=== PATIENT | male | born 1980 | race Caucasian/White ===

== ENCOUNTER → 2016-09-21 | Outpatient (CLI) | payer OTHER ==
[~2016-09-21] MED LIST: AMLO-114 PO; ATOR-54 PO; ATRINS INH; BUPR1SUB23 SL; CITA40TA12 PO; DOCU100C PO; FLV1 PO; GABA-113 PO; GLIP-197 PO; HYDR25TA4 PO; INSDGIPEN SC; LSN40 PO; METF1000 PO; POLY335019 PO; POTTAB2 PO; PRLSR20 PO; Piperacill/Tazobac Consult; RANI300T2 PO; SUCR1TAB29 PO; TRAZ50TA35 PO; Vancomycin Consult Active; XPNINS1255 INH; [UNRECOGNIZED DRUG - CODE] SQ
== END | disposition home or self-care (01) ==
LOC: C.LAB 01:02
DX: Z02.83 Encounter for blood-alcohol and blood-drug test (principal)

== ENCOUNTER 2017-02-03 02:28 | Inpatient (IN) | payer OTHER ==
[~2017-02-03] VITALS: Ht 177.8 cm; Wt 79.7 kg
[2017-02-03] VITALS (33 sets, daily range): BP systolic 45–152; BP diastolic 39–131; PULSE 110–148; TEMP 36.9–38.9; O2SAT 82–100; Ht 177.8 cm; Wt 79.7 kg
[~2017-02-03 02:28] MED LIST changes: -ATRINS INH; -DOCU100C PO; -POLY335019 PO; -Piperacill/Tazobac Consult; -Vancomycin Consult Active; -XPNINS1255 INH; -[UNRECOGNIZED DRUG - CODE] SQ
[2017-02-03] MEDS ORDERED: SODIUM CHLORIDE 0.9% 1000ML 1,000 ML IV STA (02:39)
[2017-02-03] MEDS ORDERED: VANCOMYCIN 1GM/270ML NSS ONE (02:57)
[2017-02-03] MEDS ORDERED: PIPERACILLIN/TAZOBACTAM 4.5 GM/100ML D5W ONE (02:57)
[2017-02-03] MEDS ORDERED: PIPERACILLIN/TAZOBACTAM 4.5 GM/100ML D5W IV STA (02:58)
[2017-02-03] MEDS ORDERED: VANCOMYCIN INJ 1,000 MG in SODIUM CHLORIDE 0.9% 250ML 250 ML IV STA (02:58)
[2017-02-03 03:12] LABS: INR 1.3 (0.9-1.1); PROTHROMBIN TIME (PATIENT) 14.6 SECONDS (9.0-12.0)
[2017-02-03 04:00] LABS: POTASSIUM 3.9 mmol/L (3.5-5.1)
[2017-02-03 04:04] LABS: HEMATOCRIT 40.8 % (42-52); MEAN CELL VOLUME 98.8 fL (80-100); MEAN CORPUSCULAR HEMOGLOBIN 34.6 pg (25-34); MEAN PLATELET VOLUME 12.8 fL (7.4-10.4); PLATELET COUNT 32 K/uL (130-400); RED BLOOD COUNT 4.13 M/uL (4.7-6.1); WHITE BLOOD COUNT 0.57 K/uL (4.8-10.8)
[2017-02-03] MEDS ORDERED: LEVAQUIN 750MG / 150ML D5W IV STA (04:04)
[2017-02-03 04:07] LABS: COMPLETE YES; IG% 1.8 %; LARGE PLATELETS 3+; LYMPH % 54.4 %; LYMPH ABS # 0.31 K/uL (1.2-3.4); NEUT % 36.8 %; PLT ESTIMATE DECREASED; VACUOLIZATION 2+
[2017-02-03 04:09] LABS: CREATININE 3.7 mg/dl (0.60-1.40)
[2017-02-03 04:10] LABS: BUN/CREATININE RATIO 7.8 (10-20); CALCIUM 6.7 mg/dl (8.5-10.1)
[2017-02-03 04:26] LABS: BETA-HYDROXYBUTYRATE 3.65 mg/dL (0.2-2.81)
[2017-02-03 04:49] LABS: VEN BLD GAS O2 SATURATION 69.8 %; VEN BLOOD GAS BASE EXCESS -7.2 mEq/L; VENOUS BLOOD GAS PCO2 31 mmHg (38.0-50.0); VENOUS BLOOD GAS PO2 39 mmHg
[2017-02-03] MEDS ORDERED: NOREPINEPHRINE BIT INJ 8 MG in DEXTROSE 5% 500ML 500 ML IV STA (04:55)
--- NOTE | 2017-02-03 05:02 | EMERGENCY ROOM VISIT NOTE ---
History Report prepared by Shellyibla: Giovani Strange Under the Supervision of: Dr. Rajendra Babcock D.O. First contact with patient: 02:38 Chief Complaint: ABDOMINAL PAIN Stated Complaint: ABDOMINAL PAIN Nursing Triage Summary: patient presents via EMS with c/o increased adominal pain all over and n/v. patient has hx of pancreatitis , " liver disease", diabetes. patients BSG was 486 prehospital . patient took insulin last night before bed. History of Present Illness The patient is a 36 year old male who presents to the Emergency Room with complaints of persistent abdominal pain beginning five days ago. He was found to be febrile, hypotensive and tachycardic upon arrival. He has a history of pancreatitis and states that his current symptoms feel like his pancreatitis. The patient has a history of liver problems, and diabetes. He states that he was drinking alcohol earlier this week. He also complains of vomiting today, and a productive cough beginning a few days ago. The patient denies any diarrhea , or bloody vomit Source of History: patient Onset: Five days ago Position: abdomen Timing: other (persistent) Associated Symptoms: + fevers, + cough, + vomiting, No diarrhea Review of Systems See HPI for pertinent positives and negatives. A total of ten systems were reviewed and were otherwise negative. Past Medical & Surgical Medical Problems: (1) Alcoholic hepatitis (2) Anxiety disorder (3) Chronic alcoholic pancreatitis (4) Depression (5) Depressive disorder (6) DM type 2 (diabetes mellitus, type 2) (7) History of alcohol abuse (8) History of Clostridium difficile (9) Hyperlipidemia (10) Hypertension (11) Pancreatitis (12) Tobacco abuse (13) Wernicke encephalopathy Surgical Problems: (1) H/O wisdom tooth extraction (2) S/P vasectomy Family History Cancer Diabetes mellitus Heart disease Hypertension Lung disease Social History Smoking Status: Current Some Day Smoker Alcohol Use: heavy Drug Use: none Marital Status: single Housing Status: lives with family Occupation Status: employed Current/Historical Medications Scheduled Amlodipine (Norvasc), 10 MG PO QAM Atorvastatin (Lipitor), 20 MG PO QAM Buprenorphine Hcl-Naloxone Hcl (Suboxone 8-2 Mg), 2-2.5 TAB SL DAILY Citalopram Hydrobromide (Celexa), 40 MG PO QAM Gabapentin (Neurontin), 300 MG PO TID Glipizide (Glipizide Er), 1 TAB PO QAM Hydrochlorothiazide (Hctz), 25 MG PO QAM Insulin Glargine (Lantus Solostar), 10-32 UNITS SC DAILY Lisinopril (Lisinopril), 40 MG PO QAM Metformin Hcl (Glucophage), 1 TAB PO BID Omeprazole (Prilosec), 40 MG PO QAM Pot Phosphate Monobasic W/ Sod (Phospha 250 Neutral), 1 TAB PO QID Ranitidine Hcl (Zantac), 300 MG PO HS Sucralfate (Carafate), 1 GM PO QID Scheduled PRN Trazodone Hcl (Trazodone), 50 MG PO HS PRN for PRN Allergies Coded Allergies: Iodinated Diagnostic Agents (Verified Allergy, Unknown, UNKNOWN, 02/03/17) NO KNOWN DRUG ALLERGIES (Unverified Allergy, Unknown, NONE, 01/14/17) Physical Exam Vital Signs Date Time Temp Pulse Resp B/P (MAP) Pulse Ox O2 Delivery O2 Flow Rate FiO2 02/03/17 05:35 134 22 88/49 93 Nasal Cannula 2.0 02/03/17 04:52 128 22 76/36 92 Nasal Cannula 2.0 02/03/17 04:00 37.4 02/03/17 03:47 130 22 80/44 97 Room Air 02/03/17 02:55 127 24 65/40 100 Room Air 02/03/17 02:45 99 Room Air 02/03/17 02:40 137 02/03/17 02:31 39.2 141 22 82/57 100 Room Air Physical Exam GENERAL: Awake, cachectic-appearing. Jaundiced. HENT: Normocephalic, atraumatic. Oropharynx unremarkable. EYES: Normal conjunctiva. Sclera non-icteric. NECK: Supple. No nuchal rigidity. FROM. No JVD. RESPIRATORY: Clear to auscultation. CARDIAC: Tachycardic rate, normal rhythm. Extremities warm and well perfused. Pulses equal. ABDOMEN: Soft, non-distended. No tenderness to palpation. No rebound or guarding. No masses. RECTAL: Deferred. MUSCULOSKELETAL: Chest examination reveals no tenderness. The back is symmetrical on inspection without obvious abnormality. There is no CVA tenderness to palpation. No joint edema. LOWER EXTREMITIES: Calves are equal size bilaterally and non-tender. No edema. No discoloration. NEURO: Normal sensorium. No sensory or motor deficits noted. SKIN: No rash. Jaundiced. Medical Decision & Procedures ER Provider Diagnostic Interpretation: One View Chest X-ray interpreted by me: slight increased markings in the left lower lobe. Normal mediastinum. CT results per statrad and my review. CT ABDOMEN & PELVIS: Compared to 05/16/16. The left lower lobe is almost completely consolidated suggesting pneumonia. Hepatic stenosis. Mild left renal atrophy. No obstruction. Normal appendix. No bowel obstruction. Small fatty inguinal hernias. Laboratory Results 02/03/17 02:45 Red Blood Count 4.13, Mean Corpuscular Volume 98.8, Mean Corpuscular Hemoglobin 34.6, Mean Corpuscular Hemoglobin Concent 35.0, Mean Platelet Volume 12.8, Neutrophils (%) (Auto) 36.8, Lymphocytes (%) (Auto) 54.4, Monocytes (%) (Auto) 7.0, Eosinophils (%) (Auto) 0.0, Basophils (%) (Auto) 0.0, Neutrophils # (Auto) 0.21, Lymphocytes # (Auto) 0.31, Monocytes # (Auto) 0.04, Eosinophils # (Auto) 0.00, Basophils # (Auto) 0.00 02/03/17 02:45 Test 02/03/17 02:45 02/03/17 02:52 02/03/17 03:04 02/03/17 04:28 White Blood Count 0.57 K/uL (4.8-10.8) Red Blood Count 4.13 M/uL (4.7-6.1) Hemoglobin 14.3 g/dL (14.0-18.0) Hematocrit 40.8 % (42-52) Mean Corpuscular Volume 98.8 fL (80-100) Mean Corpuscular Hemoglobin 34.6 pg (25-34) Mean Corpuscular Hemoglobin Concent 35.0 g/dl (32-36) Platelet Count 32 K/uL (130-400) Mean Platelet Volume 12.8 fL (7.4-10.4) Neutrophils (%) (Auto) 36.8 % Lymphocytes (%) (Auto) 54.4 % Monocytes (%) (Auto) 7.0 % Eosinophils (%) (Auto) 0.0 % Basophils (%) (Auto) 0.0 % Neutrophils # (Auto) 0.21 K/uL (1.4-6.5) Lymphocytes # (Auto) 0.31 K/uL (1.2-3.4) Monocytes # (Auto) 0.04 K/uL (0.11-0.59) Eosinophils # (Auto) 0.00 K/uL (0-0.5) Basophils # (Auto) 0.00 K/uL (0-0.2) RDW Standard Deviation 43.0 fL (36.4-46.3) RDW Coefficient of Variation 11.9 % (11.5-14.5) Immature Granulocyte % (Auto) 1.8 % Immature Granulocyte # (Auto) 0.01 K/uL (0.00-0.02) Toxic Vacuolation 2+ Platelet Estimate DECREASED Large Platelets 3+ Pappenheimer Bodies 1+ Prothrombin Time 14.6 SECONDS (9.0-12.0) Prothromb Time International Ratio 1.3 (0.9-1.1) Anion Gap 19.0 mmol/L (3-11) Est Creatinine Clear Calc Drug Dose 28.2 ml/min Estimated GFR () 22.8 Estimated GFR (Non- 19.7 BUN/Creatinine Ratio 7.8 (10-20) Calcium Level 6.7 mg/dl (8.5-10.1) Total Bilirubin 6.9 mg/dl (0.2-1) Direct Bilirubin 5.4 mg/dl (0-0.2) Aspartate Amino Transf (AST/SGOT) 220 U/L (15-37) Alanine Aminotransferase (ALT/SGPT) 126 U/L (12-78) Alkaline Phosphatase 82 U/L (45-117) Total Protein 5.6 gm/dl (6.4-8.2) Albumin 2.2 gm/dl (3.4-5.0) Lipase 24 U/L (73-393) Beta-Hydroxybutyric Acid 3.65 mg/dL (0.2-2.81) Bedside Lactic Acid Venous 8.96 mmol/L (0.90-1.70) Ethyl Alcohol mg/dL < 3.0 mg/dl (0-3) Venous Blood pH 7.36 (7.36-7.41) Venous Blood Partial Pressure CO2 31 mmHg (38.0-50.0) Venous Blood Partial Pressure O2 39 mmHg Venous Blood HCO3 17 mmol/L Venous Blood Oxygen Saturation 69.8 % Venous Blood Base Excess -7.2 mEq/L Ammonia 18.0 umol/L (11-32) Test 02/03/17 05:17 02/03/17 05:30 Bedside Glucose 300 mg/dl (70-99) Urine Color DK YELLOW Urine Appearance CLOUDY (CLEAR) Urine pH 5.0 (4.5-7.5) Urine Specific Butterfield 1.027 (1.000-1.030) Urine Protein 1+ (NEG) Urine Glucose (UA) NEG (NEG) Urine Ketones TRACE (NEG) Urine Occult Blood TRACE (NEG) Urine Nitrite POS (NEG) Urine Bilirubin 1+ (NEG) Urine Urobilinogen NEG (NEG) Urine Leukocyte Esterase NEG (NEG) Urine Osmolality 310 mOms/kg (500-800) Laboratory results reviewed by me Medications Administered Medications (Trade) Dose Ordered Sig/Elidia Route Start Time Stop Time Status Last Admin Dose Admin Sodium Chloride 1,000 ml @ 999 mls/hr Q1H1M STAT IV 02/03/17 02:39 02/03/17 03:39 PA 02/03/17 02:52 999 MLS/HR Piperacillin Sod/ Tazobactam Sod (Zosyn Iv) 4.5 gm NOW STAT IV 02/03/17 02:58 02/03/17 02:59 DC 02/03/17 03:14 4.5 GM Vancomycin HCl 1000 mg/Sodium Chloride 270 ml @ 125 mls/hr NOW STAT IV 02/03/17 02:58 02/03/17 05:07 DC 02/03/17 02:58 125 MLS/HR Levofloxacin (Levaquin / D5W) 750 mg NOW STAT IV 02/03/17 04:04 02/03/17 04:06 DC 02/03/17 04:46 750 MG Norepinephrine Bitartrate 8 mg/ Dextrose 508 ml @ 0 mls/hr Q0M STAT IV 02/03/17 04:55 02/03/17 04:56 DC 02/03/17 05:16 30 MLS/HR Procedure Femoral Central Venous Catheter Indication: sepsis, hypotension Catheter Type: triple lumen Location: right groin, femoral vein Verbal consent was obtained after the risks and benefits were explained, including but not limited to intra-abdominal injury, vessel injury, bleeding, scarring, infection, pain, and bone/joint/nerve damage. At this time, the risks of the procedure are less than the risks of NOT performing the procedure. A time out was taken and the correct patient and site identified. The patient was placed in the supine position and the skin was prepped in the standard fashion with chlorhexidine and full sterile drapes applied. The proper landmarks were identified, anesthetized with 1% lidocaine without epinephrine, and the needle was inserted through the skin in the standard fashion. The needle was carefully advanced into blood vessel lumen with ultrasound guidance. The guidewire was placed uneventfully. The vessel is dilated and the catheter was placed. It was sutured into position. There was good blood return from all ports. The patient tolerated the procedure well and there were no complications. ECG Indication: abdominal pain Rate (beats per minute): 139 Rhythm: sinus tachycardia Findings: no acute ischemic change, other (Normal intervals. Normal axis.) ED Course 0244: The patient was evaluated in room B12B. A complete history and physical exam was performed. 0239: Ordered Sodium Chloride 1000 ml @ 999 mls/hr IV. 0258: Ordered Zosyn 4.5 gm IV, Vancomycin HCl 1000 mg/Sodium Chloride 270 ml @ 125 mls/hr IV. 0358: I spoke with the case management specialist. She has just spoken at length with the patient's fiancee over the phone. She states that the patient has been drinking a lot of alcohol recently. She states that the patient has been having intermittent episodes of confusion as well. The patient's fiancee also notes that the patient was started on Suboxone recently. 0404: Ordered Levaquin / D5W 750 mg IV. 0410: The patient was moved to B1. 0418: I placed the central femoral line. See the procedure note for details. 0435: Upon reexamination, the patient was resting. I discussed the test results and treatment plan with him. The patient will be evaluated for further management. 0455: Ordered Norepinephrine Bitartrate 8 mg/Dextrose 508 mL IV. Medical Decision Differential diagnoses include but are not limited to; sepsis, pancreatitis, dehydration, and metabolic derangement Patient presents with nausea vomiting weakness tachycardia fever and hypotension. Patient is concerning for septic shock, patient is having neutropenic fever hepatorenal syndrome, hyponatremia, hyperglycemia, suspect diabetic ketoacidosis, suspect alcoholism. Patient was started empirically on Zosyn Levaquin and vancomycin, patient was found to have a left lower lobe infiltrate on chest x-ray as well as a left lower lobe consolidation on CT of his abdomen and pelvis. Patient's lactic acid is greater than 8. Patient's base excess is extremely high as well. Patient received over 4 L of IV saline in the emergency department. Patient was given a central line as well as 2 peripheral IVs for emergent access. Patient also had Levothroid started. Case was discussed with the [facility] hospitalist as well as the intensive care unit physician. Patient will be admitted to the ICU in critical condition for further treatment neutropenic fever septic shock, hyponatremia, hepatorenal syndrome, hyperglycemia with suspected diabetic ketoacidosis.. Medication Reconcilliation Current Medication List: was personally reviewed by me Blood Pressure Screening Patient's blood pressure: Low blood pressure Blood pressure disposition: Did not require urgent referral Consults Time Called: 0433 Consulting Physician: Dr. Sergio Lanier Returned Call: [phone] Discussed the patient's case. The patient will be evaluated for further treatment and disposition. Additional Consults: Time Called: 0505 Consulted Physician: Dr. Chavira -ICU Returned Call: [phone] Additional Comments: Discussed the patient's case. The patient will be evaluated in the ICU. Impression Primary Impression: Left lower lobe pneumonia Additional Impressions: Septic shock Renal failure Transaminitis Hepatorenal syndrome Hyponatremia Lactic acid acidosis Hyperglycemia DKA (diabetic ketoacidoses) Neutropenic fever Critical Care I have personally spent greater than 70 minutes of critical care time in the direct management of this patient. This includes bedside care, interpretation of diagnostic studies, and testing, discussion with consultants, patient, and family members, and other required patient management activities. This 70 minutes is in excess of all separately billable procedures. Scribe Attestation The scribe's documentation has been prepared under my direction and personally reviewed by me in its entirety. I confirm that the note above accurately reflects all work, treatment, procedures, and medical decision making performed by me. Departure Information Dispostion Being Evaluated By Hospitalist Referrals Govind Mccain M.D. (PCP) Patient Instructions [facility] Problem Qualifiers
[2017-02-03] MEDS ORDERED: NOREPINEPHRINE BIT INJ 8 MG in DEXTROSE 5% 500ML 500 ML IV PRN (05:18)
[2017-02-03] MEDS ORDERED: VANCOMYCIN CONSULT ACTIVE PRN (05:44)
[2017-02-03] MEDS ORDERED: NON-FORMULARY MEDICATION SCH (05:45)
[2017-02-03] MEDS ORDERED: INSULIN IV INFUSION PROTOCOL SCH (05:45)
[2017-02-03] MEDS ORDERED: PHARMACY GLYCEMIC MGMT CONSULT PRN (05:45)
[2017-02-03] MEDS ORDERED: SEVERE STRESS LEVEL ONE (05:45)
[2017-02-03] MEDS ORDERED: HHS GOAL RANGE 250-350 mg/dl ONE (05:45)
[2017-02-03 05:46] LABS: URINE APPEARANCE CLOUDY (CLEAR); URINE COLOR DK YELLOW; URINE EPITHELIAL CELL AUTO 20-30 /lpf (0-5); URINE NITRITE POS (NEG); URINE SPECIFIC GRAVITY 1.027 (1.000-1.030); UROBILINOGEN NEG (NEG)
[2017-02-03 05:52] LABS: MANUAL MICROSCOPIC REQUIRED? NO; REVIEW REQ? YES; URINE BILIRUBIN 1+ (NEG)
[2017-02-03] MEDS ORDERED: INSULIN HUMAN REGULAR IV BOLUS 3 UNIT in SYRINGE 0 ML IV STA (05:55)
[2017-02-03] MEDS ORDERED: THIAMINE HCL INJ 100 MG in SYRINGE 9 ML IV STA (05:58)
[2017-02-03] MEDS ORDERED: GLUCAGON FOR INJ 1 MG VIAL SQ PRN (06:00)
[2017-02-03] MEDS ORDERED: DEXTROSE 50% 50 ML SYR IV PRN (06:00)
[2017-02-03] MEDS ORDERED: INSULIN REGULAR 250 UNITS in SODIUM CHLORIDE 0.9% 250ML 250 ML IV SCH ×2 (06:00→11:30)
[2017-02-03] MEDS ORDERED: PIPERACILL/TAZOBAC CONSULT ACTIVE PRN (06:00)
[2017-02-03] MEDS ORDERED: GLUCOSE 40% GEL 15 GM TUBE PO PRN (06:00)
[2017-02-03] MEDS ORDERED: GLUCOSE 10 TABS/TUBE PO PRN (06:00)
[2017-02-03] MEDS ORDERED: LORAZEPAM 1 MG TAB PO PRN (06:00)
--- NOTE | 2017-02-03 06:03 | History and Physical ---
History & Physical Date & Time of Service: Feb 03, 2017 at 05:52 Chief Complaint: Abdominal Pain Primary Care Physician: Govind Mccain M.D. History of Present Illness Source: patient, clinic records, hospital records 36 year old male with history of Alcoholism, Chronic Pancreatitis, DM, HTN, Depression, Smoker, and other problems noted below presenting with abdominal pain x few days. Follows with Dr. Mccain for Primary Care. Patient states that he was at his usual state of health until about 5 days when he started to have central abdominal pain, associated with some diarrhea, nausea and vomiting. He states he is not able to keep anything down and has been having mostly fluids only. Also states that he has been having productive cough and some chills, but denies shortness of breath. Patient then presented to the ER. Upon arrival, patient was hypotensive, febrile, tachycardic. He is leukopenic WBC 0.37 and thrombocytopenic Plt 32, crea 3.7, lactic acid 8.9 , (+) direct bilirubin and AST/ALT elevation. CXR and CT abdomen/pelvis showing Left Lower Lobe consolidation. He was given at least 3L of IV NSS boluses and started on Vanc/Zosyn/Levaquin. On my exam, patient was in his 4th liter of fluids, and started on Levophed. He is laying in bed, not in distress, appears somewhat anxious but pleasant, oriented x 3, answers questions appropriately. States he feels slightly better. Main complaint is generalized abdominal discomfort, worse with movement. Denies right inguinal hernia pain. Denies shortness of breath, chest pain, dizziness, nausea. No other symptoms Last drink was Tuesday. Reports vivid dreams but denies hallucinations, tremors. Past Medical/Surgical History Medical Problems: (1) Alcoholic hepatitis Status: Chronic (2) Anxiety disorder Status: Chronic (3) Depression Status: Chronic (4) Depressive disorder Status: Chronic (5) DM type 2 (diabetes mellitus, type 2) Status: Chronic (6) History of alcohol abuse Status: Chronic (7) History of Clostridium difficile Status: Chronic (8) Hyperlipidemia Status: Chronic (9) Hypertension Status: Chronic (10) Pancreatitis Status: Chronic (11) Tobacco abuse Status: Chronic (12) Wernicke encephalopathy Status: Resolved Surgical Problems: (1) H/O wisdom tooth extraction Status: Resolved (2) S/P vasectomy Status: Chronic Family History Cancer Diabetes mellitus Heart disease Hypertension Lung disease Social History Smoking Status: Current Some Day Smoker Drug Use: none Marital Status: single Housing status: lives alone Occupational Status: employed Multi-Drug Resistant Organisms History of MDRO: No Allergies Coded Allergies: Iodinated Diagnostic Agents (Verified Allergy, Unknown, UNKNOWN, 02/03/17) NO KNOWN DRUG ALLERGIES (Unverified Allergy, Unknown, NONE, 01/14/17) Home Medications Scheduled Amlodipine (Norvasc), 10 MG PO QAM Atorvastatin (Lipitor), 20 MG PO QAM Buprenorphine Hcl-Naloxone Hcl (Suboxone 8-2 Mg), 2-2.5 TAB SL DAILY Citalopram Hydrobromide (Celexa), 40 MG PO QAM Gabapentin (Neurontin), 300 MG PO TID Glipizide (Glipizide Er), 1 TAB PO QAM Hydrochlorothiazide (Hctz), 25 MG PO QAM Insulin Glargine (Lantus Solostar), 10-32 UNITS SC DAILY Lisinopril (Lisinopril), 40 MG PO QAM Metformin Hcl (Glucophage), 1 TAB PO BID Omeprazole (Prilosec), 40 MG PO QAM Pot Phosphate Monobasic W/ Sod (Phospha 250 Neutral), 1 TAB PO QID Ranitidine Hcl (Zantac), 300 MG PO HS Sucralfate (Carafate), 1 GM PO QID Scheduled PRN Trazodone Hcl (Trazodone), 50 MG PO HS PRN for PRN Review of Systems Constitutional- (+) as noted above Eyes- no acute visual changes ENT- no sinus drainage; no pharyngitis Pulmonary- (+) as noted above Cardiac- no chest pain, no palpitations, no orthopnea, no dependent edema GI- (+) as noted above - no dysuria, no hematuria Musculoskeletal- no arthralgias, no myalgias Derm- no rashes, no new skin lesions, no changing skin lesions Hematologic- no unusual bruising, no unusual bleeding Lymphatics- no adenopathy Endocrine- no polyuria or polydipsia; no heat or cold intolerance Neuro- no headaches, no focal neurologic symptoms Psych- no anxiety, no depression Physical Exam Vital Signs Date Time Temp Pulse Resp B/P (MAP) Pulse Ox O2 Delivery O2 Flow Rate FiO2 02/03/17 05:35 134 22 88/49 93 Nasal Cannula 2.0 02/03/17 04:52 128 22 76/36 92 Nasal Cannula 2.0 02/03/17 04:00 37.4 02/03/17 03:47 130 22 80/44 97 Room Air 02/03/17 02:55 127 24 65/40 100 Room Air 02/03/17 02:45 99 Room Air 02/03/17 02:40 137 02/03/17 02:31 39.2 141 22 82/57 100 Room Air General Appearance: WD/WN, no apparent distress Head: normocephalic, atraumatic Eyes: normal inspection, + pertinent finding ((+) mild icterus) ENT: normal ENT inspection, hearing grossly normal, + pertinent finding ((+) oral thrush) Neck: supple, no adenopathy, thyroid normal, no JVD, trachea midline Respiratory/Chest: chest non-tender, lungs clear, normal breath sounds, no respiratory distress Cardiovascular: no edema, no JVD, + tachycardia Abdomen/GI: normal bowel sounds, + hernia (right inguinal hernia), + pertinent finding (mild-moderate tenderness on all quadrants but soft, no guarding) Back: normal inspection, no CVA tenderness Extremities/Musculoskelatal: normal inspection, no calf tenderness, no pedal edema, non-tender Neurologic/Psych: applied researcher II-XII nml as tested, no motor/sensory deficits, alert, normal mood/affect, oriented x 3 Skin: normal color, warm/dry, no rash Lymphatic: no adenopathy Diagnostics Laboratory Results Results Past 24 Hours Test 02/03/17 02:43 02/03/17 02:45 02/03/17 02:52 02/03/17 03:04 Range/Units Bedside Glucose 380 70-99 mg/dl White Blood Count 0.57 4.8-10.8 K/uL Red Blood Count 4.13 4.7-6.1 M/uL Hemoglobin 14.3 14.0-18.0 g/dL Hematocrit 40.8 42-52 % Mean Corpuscular Volume 98.8 80-100 fL Mean Corpuscular Hemoglobin 34.6 25-34 pg Mean Corpuscular Hemoglobin Concent 35.0 32-36 g/dl Platelet Count 32 130-400 K/uL Mean Platelet Volume 12.8 7.4-10.4 fL Neutrophils (%) (Auto) 36.8 % Lymphocytes (%) (Auto) 54.4 % Monocytes (%) (Auto) 7.0 % Eosinophils (%) (Auto) 0.0 % Basophils (%) (Auto) 0.0 % Neutrophils # (Auto) 0.21 1.4-6.5 K/uL Lymphocytes # (Auto) 0.31 1.2-3.4 K/uL Monocytes # (Auto) 0.04 0.11-0.59 K/uL Eosinophils # (Auto) 0.00 0-0.5 K/uL Basophils # (Auto) 0.00 0-0.2 K/uL RDW Standard Deviation 43.0 36.4-46.3 fL RDW Coefficient of Variation 11.9 11.5-14.5 % Immature Granulocyte % (Auto) 1.8 % Immature Granulocyte # (Auto) 0.01 0.00-0.02 K/uL Toxic Vacuolation 2+ Platelet Estimate DECREASED Large Platelets 3+ Pappenheimer Bodies 1+ Prothrombin Time 14.6 9.0-12.0 SECONDS Prothromb Time International Ratio 1.3 0.9-1.1 Sodium Level 117 136-145 mmol/L Potassium Level 3.9 3.5-5.1 mmol/L Chloride Level 77 98-107 mmol/L Carbon Dioxide Level 21 21-32 mmol/L Anion Gap 19.0 3-11 mmol/L Blood Urea Nitrogen 29 7-18 mg/dl Creatinine 3.70 0.60-1.40 mg/dl Est Creatinine Clear Calc Drug Dose 28.2 ml/min Estimated GFR () 22.8 Estimated GFR (Non- 19.7 BUN/Creatinine Ratio 7.8 10-20 Random Glucose 353 70-99 mg/dl Calcium Level 6.7 8.5-10.1 mg/dl Total Bilirubin 6.9 0.2-1 mg/dl Direct Bilirubin 5.4 0-0.2 mg/dl Aspartate Amino Transf (AST/SGOT) 220 15-37 U/L Alanine Aminotransferase (ALT/SGPT) 126 12-78 U/L Alkaline Phosphatase 82 45-117 U/L Total Protein 5.6 6.4-8.2 gm/dl Albumin 2.2 3.4-5.0 gm/dl Lipase 24 73-393 U/L Beta-Hydroxybutyric Acid 3.65 0.2-2.81 mg/dL Bedside Lactic Acid Venous 8.96 0.90-1.70 mmol/L Ethyl Alcohol mg/dL < 3.0 0-3 mg/dl Test 02/03/17 04:28 02/03/17 05:17 02/03/17 05:30 Range/Units Venous Blood pH 7.36 7.36-7.41 Venous Blood Partial Pressure CO2 31 38.0-50.0 mmHg Venous Blood Partial Pressure O2 39 mmHg Venous Blood HCO3 17 mmol/L Venous Blood Oxygen Saturation 69.8 % Venous Blood Base Excess -7.2 mEq/L Ammonia 18.0 11-32 umol/L Bedside Glucose 300 70-99 mg/dl Microbiology Results 02/03/17 Blood Culture, Received Pending 02/03/17 Blood Culture, Received Pending 02/03/17 Urine Culture, Received Pending Diagnostic Radiology [~ rep ct add3]] CHEST ONE VIEW PORTABLE HISTORY: 36 years-old Male Evaluate Fever/Sepsis acute fever with sepsis and upper abdominal pain. COMPARISON: Abdomen and pelvis CT of same day, portable chest radiograph 02/09/2015. TECHNIQUE: Portable upright AP view of the chest FINDINGS: Segmental alveolar opacities are present within the basal left lower lobe with small left parapneumonic effusion. There is no pneumothorax. The right lung is clear. Cardiomediastinal and hilar silhouettes are within normal limits. Mild degenerative changes involve the shoulders. IMPRESSION: Segmental alveolar opacities of the left lower lobe with small amount of left pleural fluid suggests pneumonia with parapneumonic effusion. Follow-up imaging to document resolution is recommended. EKG sinus tachycardia Impression Assessment and Plan 36 year old male with history of Alcoholism, Chronic Pancreatitis, DM, HTN, Depression, Smoker, and other problems noted below presenting with abdominal pain x few days. SEPTIC SHOCK FEBRILE NEUTROPENIA - likely from left lower lobe pneumonia, with effusion r/o cholangitis - ff up cultures - received 4 liters NSS boluses on IV NSS at 125cc/hr on Levophed empiric Vanc, Zosyn, Levaquin - ID consulted NEUTROPENIA, THROMBOCYTOPENIA - secondary to Sepsis, Alcoholism - neutropenic precautions Peripheral smear ordered - may need Hematology consult HYPONATREMIA - likely hypovolemic, hypoosmolar - corrected Na 121 - on IV NSS PRP q4h ACUTE RENAL FAILURE - likely pre renal, related to Sepsis - UA pending - IV NSS Renal US if not improving HYPERGLYCEMIA DM 2 - usually on Lantus, Glipizide, Metformin: hold all for now - on Insulin Drip pharm consulted ELEVATED LACTIC ACID - IV NSS monitor Lactic acid q4h DIRECT BILIRUBINEMIA TRANSAMINITIS - possible cholangitis? - GB US ordered - GI consulted CHRONIC SUBOXONE USE - Suboxone ordered DEPRESSION - stable on Celexa ALCOHOLISM - last drink Tuesday - no signs of DTs/Withdrawal - Gabapentin protocol RIGHT INGUINAL HERNIA - patient denies pain on the hernia site (+) BMs doubt incarceration - scheduled for repair by Dr. Segura on 02/07 DVT PROPH - SCDs only Plt 32 FULL CODE PER PATIENT DISPOSITION pending lives at home follows with Dr. Mccain for PCP VTE Prophylaxis VTE Risk Assessment Done? Y/N: Yes Risk Level: Moderate Given or contraindicated: SCD's
[2017-02-03 06:04] LABS: BENZODIAZEPINE, URINE NEG (NEG); COCAINE,URINE NEG (NEG); PHENCYCLIDINE, URINE NEG (NEG)
--- NOTE | 2017-02-03 06:36 | DIAGNOSTIC IMAGING REPORT ---
GALLBLADDER-ABD LIMITED HISTORY: 36 years-old Male elevated lfts, bilirubin; r/o cholecystitis acute elevated liver function tests. Acute upper abdominal pain. COMPARISON: CT abdomen and pelvis of same day TECHNIQUE: Multiple real-time sonographic images of the abdominal right upper quadrant were obtained assessing grayscale appearance and color flow FINDINGS: Pancreas is obscured by bowel gas. Liver is mildly echogenic and heterogeneous compatible with fatty infiltration. The gallbladder is contracted with mildly thickened wall, 3.9 cm. No shadowing cholelithiasis or pericholecystic fluid collections. Sonographic Webster sign was reported as negative. The exam is limited secondary to patient condition and lack of breath-hold. No biliary ductal dilation. The common bile duct measures 2.0 mm. The imaged right kidney is unremarkable without hydronephrosis. IMPRESSION: 1. Contracted gallbladder without cholelithiasis or sonographic evidence of acute cholecystitis. 2. Fatty infiltration of the liver. 3. No biliary ductal dilation. The above report was generated using voice recognition software. It may contain grammatical, syntax or spelling errors. Electronically signed by: Jordan Yepez M.D. 02/03/2017 6:35 AM Dictated Date/Time: 02/03/2017 6:32 AM
[2017-02-03] MEDS ORDERED: GABAPENTIN 600 MG TAB PO STA (06:43)
[2017-02-03] MEDS ORDERED: SODIUM CHLORIDE 0.9% 1000ML 1,000 ML IV SCH (06:45)
--- NOTE | 2017-02-03 06:49 | DIAGNOSTIC IMAGING REPORT ---
CHEST ONE VIEW PORTABLE HISTORY: 36 years-old Male Evaluate Fever/Sepsis acute fever with sepsis and upper abdominal pain. COMPARISON: Abdomen and pelvis CT of same day, portable chest radiograph 02/09/2015. TECHNIQUE: Portable upright AP view of the chest FINDINGS: Segmental alveolar opacities are present within the basal left lower lobe with small left parapneumonic effusion. There is no pneumothorax. The right lung is clear. Cardiomediastinal and hilar silhouettes are within normal limits. Mild degenerative changes involve the shoulders. IMPRESSION: Segmental alveolar opacities of the left lower lobe with small amount of left pleural fluid suggests pneumonia with parapneumonic effusion. Follow-up imaging to document resolution is recommended. The above report was generated using voice recognition software. It may contain grammatical, syntax or spelling errors. Electronically signed by: Jordan Yepez M.D. 02/03/2017 6:47 AM Dictated Date/Time: 02/03/2017 6:45 AM
--- NOTE | 2017-02-03 07:21 | DIAGNOSTIC IMAGING REPORT ---
CT SCAN OF THE ABDOMEN AND PELVIS WITHOUT IV CONTRAST CLINICAL HISTORY: Generalized abdominal pain. Hypotension. COMPARISON STUDY: Abdominal CT dated scans dated 05/16/2016 and 07/24/2014. TECHNIQUE: CT scan of the abdomen and pelvis is performed from the lung bases to the proximal femora. Images are reviewed in the axial, sagittal, and coronal planes. IV contrast was not administered for this examination as per the referring clinician. Note that the examination was performed in suboptimal fashion without oral and IV contrast. Automated dose control exposure was utilized. CT DOSE: 335.73 mGy.cm FINDINGS: Lung bases: The heart is normal in size and without pericardial effusion. There is dense airspace consolidation in the left lower lobe and trace left pleural effusion. The right lung base appears clear. Liver: The unenhanced liver is enlarged, measuring 23.8 cm in length. The liver demonstrates diffusely diminished attenuation consistent with hepatic steatosis. Fatty sparing is seen adjacent to the gallbladder fossa. There is no intrahepatic biliary ductal dilatation. Gallbladder: Normal as visualized. Spleen: Normal in size and attenuation. Pancreas: The pancreas is atrophic. The pancreatic tail appears truncated, and there is a 1.4 cm fluid attenuation structure in adjacent pancreatic tail again seen on image #129. This has decreased in size from prior studies and likely represents a resolving pseudocyst. No additional peripancreatic fluid collections are identified. There is peripancreatic inflammation consistent with acute pancreatitis. Collateral vessels are again seen in the left upper quadrant. Adrenal glands: Mild nodularity of the left adrenal gland is similar to previous. Kidneys: The left kidney is slightly atrophic as compared to the right and demonstrates foci of cortical scarring. There is no hydronephrosis. No renal calculi are identified. Abdominal vasculature: The abdominal aorta is normal in course and caliber noting moderate and age advanced atherosclerotic calcification. Bowel: The small bowel and colon are normal in course and caliber. The appendix is well-visualized and normal. Peritoneum: There is no intraperitoneal free air or abdominal ascites. There is a small fat-containing umbilical hernia. Lymphadenopathy: Non-. Pelvic viscera: The bladder is decompressed and grossly unremarkable. The prostate and seminal vesicles are normal as visualized. There are small bilateral fat-containing inguinal hernias. Surgical clips are noted along the spermatic cord bilaterally. Skeletal structures: The skeletal structures are osteopenic. No lytic or blastic lesions are seen. IMPRESSION: 1. Suboptimal examination without oral and IV contrast. 2. Findings are consistent with left lower lobe pneumonia. Radiographic follow-up to resolution is recommended. 3. There are no acute infectious or inflammatory findings in the abdomen or pelvis. 4. Suspect a tiny resolving pseudocyst in the region of pancreatic tail. This has decreased in size from previous. 5. Hepatomegaly and severe hepatic steatosis. 6. Additional changes as above. Electronically signed by: Kiel Ramsey M.D. 02/03/2017 7:19 AM Dictated Date/Time: 02/03/2017 7:09 AM
[2017-02-03] MEDS ORDERED: LEVAQUIN~CONSULT PHARMACY PRN (07:54)
[2017-02-03] MEDS ORDERED: INSULIN ASPART 100 UNITS/ML 3 ML PEN SC SCH (08:00)
[2017-02-03 08:04] LABS: POTASSIUM 3.5 mmol/L (3.5-5.1)
[2017-02-03 08:07] LABS: MAGNESIUM 0.4 mg/dl (1.8-2.4)
[2017-02-03 08:09] LABS: BUN/CREATININE RATIO 9.3 (10-20); CALCIUM 5.8 mg/dl (8.5-10.1); CREATININE 3.2 mg/dl (0.60-1.40); PHOSPHORUS 2.1 mg/dl (2.5-4.9)
[2017-02-03] MEDS: PIPERACILL/TAZOBAC IV 3.375 GM in DEXTROSE 5% 100ML IV SCH ×2 (08:12→16:34)
[2017-02-03] MEDS: SUCRALFATE 1 GM TAB PO SCH ×3 (08:14→16:35)
[2017-02-03] MEDS: IPRATROPIUM BROMIDE NEB SOLN 0.02% 2.5 ML VIAL INH SCH ×3 (08:20→19:32)
[2017-02-03] MEDS: LEVALBUTEROL 1.25MG/0.5ML NEB INH SCH ×3 (08:20→19:33)
[2017-02-03] MEDS ORDERED: PANTOprazole INJ 40 MG in SYRINGE 0 ML IV SCH ×2 (09:00→11:45)
[2017-02-03] MEDS ORDERED: BUPRENORPHINE/NALOXONE 8/2 MG TAB SL SCH (09:00)
[2017-02-03] MEDS ORDERED: CITALOPRAM 40 MG TAB PO SCH (09:00)
[2017-02-03] MEDS: MAGNESIUM SULFATE 1GM / D5W 1 GM in PREMIXED IN D5W 100 ML IV SCH ×4 (09:20→12:00)
--- NOTE | 2017-02-03 09:32 | Pharmacy Progress Note ---
Pharmacy Antibiotic Consult Date of Service: Feb 03, 2017. Pharmacy Dosing Scope Pharmacy is consulted to initiate Vancomycin and Zosyn IV dosing therapy, order appropriate labs and adjust drug dose/frequency. Subjective The patient is a 36 year old male admitted on Feb 03, 2017 at 05:18. Objective Height (Feet): 5 Height (Inches): 10.00 Weight (Kilograms): 79.700 Lab Results (24hrs): Test 02/03/17 02:43 02/03/17 02:45 02/03/17 02:52 02/03/17 03:04 Bedside Glucose 380 mg/dl (70-99) White Blood Count 0.57 K/uL (4.8-10.8) Red Blood Count 4.13 M/uL (4.7-6.1) Hemoglobin 14.3 g/dL (14.0-18.0) Hematocrit 40.8 % (42-52) Mean Corpuscular Volume 98.8 fL (80-100) Mean Corpuscular Hemoglobin 34.6 pg (25-34) Mean Corpuscular Hemoglobin Concent 35.0 g/dl (32-36) Platelet Count 32 K/uL (130-400) Mean Platelet Volume 12.8 fL (7.4-10.4) Neutrophils (%) (Auto) 36.8 % Lymphocytes (%) (Auto) 54.4 % Monocytes (%) (Auto) 7.0 % Eosinophils (%) (Auto) 0.0 % Basophils (%) (Auto) 0.0 % Neutrophils # (Auto) 0.21 K/uL (1.4-6.5) Lymphocytes # (Auto) 0.31 K/uL (1.2-3.4) Monocytes # (Auto) 0.04 K/uL (0.11-0.59) Eosinophils # (Auto) 0.00 K/uL (0-0.5) Basophils # (Auto) 0.00 K/uL (0-0.2) RDW Standard Deviation 43.0 fL (36.4-46.3) RDW Coefficient of Variation 11.9 % (11.5-14.5) Immature Granulocyte % (Auto) 1.8 % Immature Granulocyte # (Auto) 0.01 K/uL (0.00-0.02) Toxic Vacuolation 2+ Platelet Estimate DECREASED Large Platelets 3+ Pappenheimer Bodies 1+ Prothrombin Time 14.6 SECONDS (9.0-12.0) Prothromb Time International Ratio 1.3 (0.9-1.1) Sodium Level 117 mmol/L (136-145) Potassium Level 3.9 mmol/L (3.5-5.1) Chloride Level 77 mmol/L (98-107) Carbon Dioxide Level 21 mmol/L (21-32) Anion Gap 19.0 mmol/L (3-11) Blood Urea Nitrogen 29 mg/dl (7-18) Creatinine 3.70 mg/dl (0.60-1.40) Est Creatinine Clear Calc Drug Dose 28.2 ml/min Estimated GFR () 22.8 Estimated GFR (Non- 19.7 BUN/Creatinine Ratio 7.8 (10-20) Random Glucose 353 mg/dl (70-99) Osmolality 275 mOsm/kg (280-300) Calcium Level 6.7 mg/dl (8.5-10.1) Total Bilirubin 6.9 mg/dl (0.2-1) Direct Bilirubin 5.4 mg/dl (0-0.2) Aspartate Amino Transf (AST/SGOT) 220 U/L (15-37) Alanine Aminotransferase (ALT/SGPT) 126 U/L (12-78) Alkaline Phosphatase 82 U/L (45-117) Total Protein 5.6 gm/dl (6.4-8.2) Albumin 2.2 gm/dl (3.4-5.0) Lipase 24 U/L (73-393) Beta-Hydroxybutyric Acid 3.65 mg/dL (0.2-2.81) Bedside Lactic Acid Venous 8.96 mmol/L (0.90-1.70) Ethyl Alcohol mg/dL < 3.0 mg/dl (0-3) Test 02/03/17 04:28 02/03/17 05:17 02/03/17 05:30 02/03/17 07:24 Venous Blood pH 7.36 (7.36-7.41) 7.36 (7.36-7.41) Venous Blood Partial Pressure CO2 31 mmHg (38.0-50.0) Venous Blood Partial Pressure O2 39 mmHg Venous Blood HCO3 17 mmol/L Venous Blood Oxygen Saturation 69.8 % Venous Blood Base Excess -7.2 mEq/L Ammonia 18.0 umol/L (11-32) Bedside Glucose 300 mg/dl (70-99) Urine Color DK YELLOW Urine Appearance CLOUDY (CLEAR) Urine pH 5.0 (4.5-7.5) Urine Specific [place] 1.027 (1.000-1.030) Urine Protein 1+ (NEG) Urine Glucose (UA) NEG (NEG) Urine Ketones TRACE (NEG) Urine Occult Blood TRACE (NEG) Urine Nitrite POS (NEG) Urine Bilirubin 1+ (NEG) Urine Urobilinogen NEG (NEG) Urine Leukocyte Esterase NEG (NEG) Urine WBC (Auto) 5-10 /hpf (0-5) Urine RBC (Auto) 5-10 /hpf (0-4) Urine Hyaline Casts (Auto) >30 /lpf (0-5) Urine Epithelial Cells (Auto) 20-30 /lpf (0-5) Urine Bacteria (Auto) 1+ (NEG) Urine Crystals CALCIUM OXALATE (NONE Urine Pathogenic Casts /lpf (0) Urine Osmolality 310 mOms/kg (500-800) Urine Random Sodium < 5 mEq/L Urine Opiates Screen POS (NEG) Urine Methadone, Qualitative NEG (NEG) Urine Barbiturates NEG (NEG) Urine Phencyclidine (PCP) Level NEG (NEG) Ur Amphetamine/Methamphetamine NEG (NEG) MDMA (Ecstasy) Screen NEG (NEG) Urine Benzodiazepines Screen NEG (NEG) Urine Cocaine Metabolite NEG (NEG) Urine Marijuana (THC) NEG (NEG) Sodium Level 124 mmol/L (136-145) Potassium Level 3.5 mmol/L (3.5-5.1) Chloride Level 91 mmol/L (98-107) Carbon Dioxide Level 16 mmol/L (21-32) Anion Gap 17.0 mmol/L (3-11) Blood Urea Nitrogen 30 mg/dl (7-18) Creatinine 3.20 mg/dl (0.60-1.40) Est Creatinine Clear Calc Drug Dose 32.6 ml/min Estimated GFR () 27.2 Estimated GFR (Non- 23.5 BUN/Creatinine Ratio 9.3 (10-20) Random Glucose 199 mg/dl (70-99) Lactic Acid Level 6.9 mmol/L (0.4-2.0) Calcium Level 5.8 mg/dl (8.5-10.1) Phosphorus Level 2.1 mg/dl (2.5-4.9) Magnesium Level 0.4 mg/dl (1.8-2.4) Test 02/03/17 07:35 02/03/17 07:52 Bedside Glucose (other) 184 mg/dl (70-99) Micro Results: Item Value Date Time C.difficile Toxin B Gene (PCR) Received 02/03/17 0830 Stool Pending Shiga Toxin Test Received 02/03/17 0830 Stool Pending Gram Stain Received 02/03/17 0730 Sputum Expectorated Sputum Pending MRSA DNA Surveillance Screen Received 02/03/17 0640 Nasal Pending Urine Culture Received 02/03/17 0530 Urine,Catheterized Pending Blood Culture Received 02/03/17 0245 Blood Pending Blood Culture Received 02/03/17 0235 Blood Pending Assessment & Plan ASSESSMENT: * Mr Ramos is a 36yo male admitted with pneumonia/sepsis. * Pt was febrile, hypotensive, and neutropenic on admission. WBC 0.57, lactic acid 8.96, cultures pending * PMH includes hx of alcoholism, chronic pancreatitis, DM, HTN. Abdominal pain for several days prior to admission. PLAN: Vancomycin: * Vanc 1gm IV x1 dose given in ED. Will supplement with additional 1gm IV x1 dose this am * for total load of ~25mg/kg * Given patient's KAYLA (SCr 3.7 on admission), will evaluate random level in am prior to beginning a maintenance regimen * Goal trough level estimate: between 15 - 20 mcg/mL for pna/sepsis. * Random level has been ordered for: tomorrow w/ am labs Zosyn: * Zosyn 4.5gm IV x1 dose given in the ED, then * Zosyn 3.375gm IV q8h, extended 4-hr infusion Levaquin 750mg IV given in ED Pharmacy will continue to follow and will adjust dose/frequency as necessary. Thank you
[2017-02-03 09:39] LABS: HEMATOCRIT 35.5 % (42-52); MEAN CELL VOLUME 98.9 fL (80-100); MEAN CORPUSCULAR HEMOGLOBIN 33.4 pg (25-34); MEAN CORPUSCULAR HGB CONC 33.8 g/dl (32-36); MEAN PLATELET VOLUME 12.6 fL (7.4-10.4); PLATELET COUNT 15 K/uL (130-400); RED BLOOD COUNT 3.59 M/uL (4.7-6.1); WHITE BLOOD COUNT 0.56 K/uL (4.8-10.8)
[2017-02-03] MEDS ORDERED: FILGRASTIM 300 MCG/ML 1 ML VIAL SQ ONE (09:45)
[2017-02-03] MEDS ORDERED: LEVOFLOXACIN CONSULT ACTIVE PRN (09:45)
[2017-02-03] MEDS ORDERED: ASCORBIC ACID 500 MG/ML 50 ML VIAL IV SCH (10:00)
[2017-02-03] MEDS ORDERED: VANCOMYCIN INJ 1,000 MG in SODIUM CHLORIDE 0.9% 250ML 250 ML IV ONE (10:00)
--- NOTE | 2017-02-03 10:13 | Medical Consult ---
Consultation Date of Consultation: Feb 03, 2017. Attending Physician: Teresita Rudolph M.D. Reason for Consultation: Septic shock, pneumonia History of Present Illness Female with history of diabetes mellitus, chronic alcohol abuse, recurrent pancreatitis, who was in usual state of health until approximately 5 days prior to admission when he began to complain of nausea, abdominal pain, with episodes of vomiting. He noted apparent jaundice, and symptoms worsened, and came to the emergency department where he was found to have evidence of sepsis with septic shock requiring pressor support, with severe neutropenia and thrombocytopenia. Also with elevation of liver enzymes and bilirubin. Was started empirically on broad-spectrum antibiotics, chest x-ray, read by me, shows possible left lower lobe infiltrate. Blood cultures are negative to date. Review of peripheral smear is pending. Past Medical/Surgical History Medical Problems: (1) Abdominal pain Status: Acute (2) DKA (diabetic ketoacidoses) Status: Acute (3) Hepatorenal syndrome Status: Acute (4) History of chronic pancreatitis Status: Acute (5) Hyperglycemia Status: Acute (6) Hyponatremia Status: Acute (7) Lactic acid acidosis Status: Acute (8) Left lower lobe pneumonia Status: Acute (9) Neutropenic fever Status: Acute (10) Renal failure Status: Acute (11) Septic shock Status: Acute (12) Substernal chest pain Status: Acute (13) Transaminitis Status: Acute (14) Upper abdominal pain Status: Acute Medical Problems: (1) Alcoholic hepatitis (2) Anxiety disorder (3) Chronic alcoholic pancreatitis (4) Depression (5) Depressive disorder (6) DM type 2 (diabetes mellitus, type 2) (7) History of alcohol abuse (8) History of Clostridium difficile (9) Hyperlipidemia (10) Hypertension (11) Pancreatitis (12) Tobacco abuse (13) Wernicke encephalopathy Surgical Problems: (1) H/O wisdom tooth extraction (2) S/P vasectomy Family History Cancer Diabetes mellitus Heart disease Hypertension Lung disease Social History Smoking Status: Current Some Day Smoker Drug Use: none Marital Status: single Housing Status: lives with family Occupation Status: employed Allergies Coded Allergies: Iodinated Diagnostic Agents (Verified Allergy, Unknown, UNKNOWN, 02/03/17) NO KNOWN DRUG ALLERGIES (Unverified Allergy, Unknown, NONE, 01/14/17) Current Inpatient Medications Current Inpatient Medications Medications (Trade) Dose Ordered Sig/Elidia Route Start Time Stop Time Status Last Admin Dose Admin Sodium Chloride 1,000 ml @ 125 mls/hr Q8H IV 02/03/17 06:45 03/05/17 06:44 02/03/17 07:15 125 MLS/HR Norepinephrine Bitartrate 8 mg/ Dextrose 508 ml @ 0 mls/hr Q0M PRN IV 02/03/17 05:18 03/05/17 05:17 Pantoprazole Sodium 40 mg/ Syringe 10 ml @ 5 mls/min DAILY IV 02/03/17 09:00 03/05/17 08:59 02/03/17 08:14 5 MLS/MIN Levalbuterol (Xopenex 1.25MG/ 0.5ML Neb) 1.25 mg Q6R INH 02/03/17 09:00 03/05/17 08:59 Ipratropium Yale (Atrovent 0.02% 0.5MG/2.5ML Neb) 0.5 mg Q6R INH 02/03/17 09:00 03/05/17 08:59 Vancomycin HCl (Consult) 1 ea DAILY PRN N/A 02/03/17 05:44 03/05/17 05:43 Piperacillin Sod/ Tazobactam Sod (Consult) 1 ea UD PRN N/A 02/03/17 06:00 03/05/17 05:59 Citalopram Hydrobromide (celeXA TAB) 40 mg QAM PO 02/03/17 09:00 03/05/17 08:59 02/03/17 08:15 40 MG Ranitidine HCl (zANTac TAB) 300 mg HS PO 02/03/17 21:00 03/05/17 20:59 Sucralfate (Carafate Tab) 1 gm QID PO 02/03/17 09:00 03/05/17 08:59 02/03/17 08:14 1 GM Buprenorphine/ Naloxone (Suboxone Tab) 2 ea DAILY SL 02/03/17 09:00 03/05/17 08:59 02/03/17 08:35 2 EA Insulin Human Regular 250 units/ Sodium Chloride 252.5 ml @ 0 mls/hr TODAY@0600 IV 02/03/17 06:00 02/03/17 11:29 02/03/17 06:11 3 MLS/HR Glucose (Glucose 40% Gel) UD PRN PO 02/03/17 06:00 03/05/17 05:59 Glucose (Glucose Chew Tab) 1 tabs UD PRN PO 02/03/17 06:00 03/05/17 05:59 Dextrose (Dextrose 50% 50ML Syringe) 50 ml UD PRN IV 02/03/17 06:00 03/05/17 05:59 Glucagon (Glucagon Inj) 1 mg UD PRN SQ 02/03/17 06:00 03/05/17 05:59 Insulin Human Regular 250 units/ Sodium Chloride 252.5 ml @ 0 mls/hr DAILY@1130 IV 02/03/17 11:30 03/05/17 11:29 Gabapentin (Neurontin Cap) 100 mg Q6H PO 02/03/17 12:00 02/03/17 18:01 Gabapentin (Neurontin Tab) 600 mg Q24H PO 02/04/17 18:00 02/04/17 18:01 Gabapentin (Neurontin Cap) 400 mg Q24H PO 02/05/17 18:00 02/05/17 18:01 Gabapentin (Neurontin Cap) 100 mg Q24H PO 02/06/17 18:00 02/06/17 18:01 Piperacillin Sod/ Tazobactam Sod 3.375 gm/Dextrose 115 ml @ 28.75 mls/ hr Q8H IV 02/03/17 08:00 02/10/17 07:59 02/03/17 08:12 28.75 MLS/HR Magnesium Sulfate 1 gm/Prmx 100 ml @ 100 mls/hr Q1H IV 02/03/17 09:00 02/03/17 12:59 02/03/17 09:20 100 MLS/HR Filgrastim (Neupogen Sq) 300 mcg DAILY SQ 02/04/17 09:00 03/06/17 08:59 Vancomycin HCl 1000 mg/Sodium Chloride 270 ml @ 125 mls/hr TODAY@1000 ONCE IV 02/03/17 10:00 02/03/17 12:09 Levofloxacin (Consult) 1 ea UD PRN N/A 02/03/17 09:45 03/05/17 09:44 Levofloxacin 750 mg/Prmx 150 ml @ 100 mls/hr Q48H IV 02/05/17 04:00 02/10/17 03:59 Vasopressin 50 units/Sodium Chloride 502.5 ml @ 24 mls/hr [id number] STAT IV 02/03/17 09:46 02/04/17 06:42 UNV Hydrocortisone Sodium Succinate 50 mg/Syringe 1 ml @ 4 mls/min Q6 IV 02/03/17 10:00 02/06/17 00:01 UNV Ascorbic Acid (Ascorbic Acid Inj) 1,500 mg Q6 IV 02/03/17 10:00 02/07/17 09:59 UNV Thiamine HCl 200 mg/Sodium Chloride 52 ml @ 208 mls/hr Q12 IV 02/03/17 21:00 02/07/17 20:59 UNV Folic Acid (Folvite Tab) 1 mg QAM PO 02/04/17 09:00 03/06/17 08:59 UNV Review of Systems Constitutional: + fever, + chills, + sweats, + weakness Eyes: No problem reported ENT: No problem reported Respiratory: + cough, + shortness of breath Cardiovascular: No problem reported Abdomen: + pain, + nausea, + vomiting Musculoskeletal: No problem reported Genitourinary - Male: No problem reported Neurologic: + weakness Psychiatric: No problem reported Endocrine: No problem reported Hematologic / Lymphatic: No problem reported Integumentary: No problem reported Allergic / Immunologic: No problem reported Physical Exam Date Time Temp Pulse Resp B/P (MAP) Pulse Ox O2 Delivery O2 Flow Rate FiO2 02/03/17 08:00 Oxymask 7.0 02/03/17 06:47 38.4 146 36 93/53 Nasal Cannula 3.0 02/03/17 06:02 143 22 92/43 93 Nasal Cannula 3.0 02/03/17 05:56 36.5 132 22 81/46 93 Nasal Cannula 3.0 02/03/17 05:35 134 22 88/49 93 Nasal Cannula 2.0 02/03/17 04:52 128 22 76/36 92 Nasal Cannula 2.0 02/03/17 04:00 37.4 02/03/17 03:47 130 22 80/44 97 Room Air 02/03/17 02:55 127 24 65/40 100 Room Air 02/03/17 02:45 99 Room Air 02/03/17 02:40 137 02/03/17 02:31 39.2 141 22 82/57 100 Room Air General Appearance: WD/WN, + moderate distress Head: normocephalic, atraumatic Eyes: EOMI, + abnormal sclerae exam (icteric) ENT: normal ENT inspection, pharynx normal Neck: supple, no adenopathy, thyroid normal, trachea midline Respiratory/Chest: chest non-tender, + respiratory distress, + rales (left base ) Cardiovascular: regular rate, rhythm, no gallop, no murmur Abdomen/GI: normal bowel sounds, soft, no organomegaly, + tenderness Back: normal inspection, no CVA tenderness Extremities/Musculoskelatal: no calf tenderness, normal capillary refill, non- tender Neurologic/Psych: alert, oriented x 3 Skin: normal color, warm/dry, no rash Lymphatic: no adenopathy Laboratory Results Date/Time Source Procedure Growth Status 02/03/17 02:45 Blood Blood Culture Pending Received 02/03/17 02:35 Blood Blood Culture Pending Received 02/03/17 06:40 Nasal MRSA DNA Surveillance Screen Pending Received 02/03/17 08:30 Stool C.difficile Toxin B Gene (PCR) Pending Received 02/03/17 08:30 Stool Shiga Toxin Test Pending Received 02/03/17 08:30 Stool Stool Culture Pending Received 02/03/17 07:30 Sputum Expectorated Sputum Gram Stain Pending Received 02/03/17 07:30 Sputum Expectorated Sputum Sputum Culture Pending Received 02/03/17 05:30 Urine,Catheterized Urine Culture Pending Received Last 24 Hours Test 02/03/17 02:43 02/03/17 02:45 02/03/17 02:52 02/03/17 03:04 Bedside Glucose 380 mg/dl White Blood Count 0.57 K/uL Red Blood Count 4.13 M/uL Hemoglobin 14.3 g/dL Hematocrit 40.8 % Mean Corpuscular Volume 98.8 fL Mean Corpuscular Hemoglobin 34.6 pg Mean Corpuscular Hemoglobin Concent 35.0 g/dl Platelet Count 32 K/uL Mean Platelet Volume 12.8 fL Neutrophils (%) (Auto) 36.8 % Lymphocytes (%) (Auto) 54.4 % Monocytes (%) (Auto) 7.0 % Eosinophils (%) (Auto) 0.0 % Basophils (%) (Auto) 0.0 % Neutrophils # (Auto) 0.21 K/uL Lymphocytes # (Auto) 0.31 K/uL Monocytes # (Auto) 0.04 K/uL Eosinophils # (Auto) 0.00 K/uL Basophils # (Auto) 0.00 K/uL RDW Standard Deviation 43.0 fL RDW Coefficient of Variation 11.9 % Immature Granulocyte % (Auto) 1.8 % Immature Granulocyte # (Auto) 0.01 K/uL Toxic Vacuolation 2+ Platelet Estimate DECREASED Large Platelets 3+ Pappenheimer Bodies 1+ Prothrombin Time 14.6 SECONDS Prothromb Time International Ratio 1.3 Sodium Level 117 mmol/L Potassium Level 3.9 mmol/L Chloride Level 77 mmol/L Carbon Dioxide Level 21 mmol/L Anion Gap 19.0 mmol/L Blood Urea Nitrogen 29 mg/dl Creatinine 3.70 mg/dl Est Creatinine Clear Calc Drug Dose 28.2 ml/min Estimated GFR () 22.8 Estimated GFR (Non- 19.7 BUN/Creatinine Ratio 7.8 Random Glucose 353 mg/dl Osmolality 275 mOsm/kg Calcium Level 6.7 mg/dl Total Bilirubin 6.9 mg/dl Direct Bilirubin 5.4 mg/dl Aspartate Amino Transf (AST/SGOT) 220 U/L Alanine Aminotransferase (ALT/SGPT) 126 U/L Alkaline Phosphatase 82 U/L Total Protein 5.6 gm/dl Albumin 2.2 gm/dl Lipase 24 U/L Beta-Hydroxybutyric Acid 3.65 mg/dL Bedside Lactic Acid Venous 8.96 mmol/L Ethyl Alcohol mg/dL < 3.0 mg/dl Test 02/03/17 04:28 02/03/17 05:17 02/03/17 05:30 02/03/17 07:24 Venous Blood pH 7.36 7.36 Venous Blood Partial Pressure CO2 31 mmHg Venous Blood Partial Pressure O2 39 mmHg Venous Blood HCO3 17 mmol/L Venous Blood Oxygen Saturation 69.8 % Venous Blood Base Excess -7.2 mEq/L Ammonia 18.0 umol/L Bedside Glucose 300 mg/dl Urine Color DK YELLOW Urine Appearance CLOUDY Urine pH 5.0 Urine Specific [place] 1.027 Urine Protein 1+ Urine Glucose (UA) NEG Urine Ketones TRACE Urine Occult Blood TRACE Urine Nitrite POS Urine Bilirubin 1+ Urine Urobilinogen NEG Urine Leukocyte Esterase NEG Urine WBC (Auto) 5-10 /hpf Urine RBC (Auto) 5-10 /hpf Urine Hyaline Casts (Auto) >30 /lpf Urine Epithelial Cells (Auto) 20-30 /lpf Urine Bacteria (Auto) 1+ Urine Crystals CALCIUM OXALATE Urine Pathogenic Casts /lpf Urine Osmolality 310 mOms/kg Urine Random Sodium < 5 mEq/L Urine Opiates Screen POS Urine Methadone, Qualitative NEG Urine Barbiturates NEG Urine Phencyclidine (PCP) Level NEG Ur Amphetamine/Methamphetamine NEG MDMA (Ecstasy) Screen NEG Urine Benzodiazepines Screen NEG Urine Cocaine Metabolite NEG Urine Marijuana (THC) NEG Sodium Level 124 mmol/L Potassium Level 3.5 mmol/L Chloride Level 91 mmol/L Carbon Dioxide Level 16 mmol/L Anion Gap 17.0 mmol/L Blood Urea Nitrogen 30 mg/dl Creatinine 3.20 mg/dl Est Creatinine Clear Calc Drug Dose 32.6 ml/min Estimated GFR () 27.2 Estimated GFR (Non- 23.5 BUN/Creatinine Ratio 9.3 Random Glucose 199 mg/dl Lactic Acid Level 6.9 mmol/L Calcium Level 5.8 mg/dl Phosphorus Level 2.1 mg/dl Magnesium Level 0.4 mg/dl Test 02/03/17 07:35 02/03/17 07:52 02/03/17 09:46 02/03/17 10:02 Bedside Glucose (other) 184 mg/dl White Blood Count 0.56 K/uL Red Blood Count 3.59 M/uL Hemoglobin 12.0 g/dL Hematocrit 35.5 % Mean Corpuscular Volume 98.9 fL Mean Corpuscular Hemoglobin 33.4 pg Mean Corpuscular Hemoglobin Concent 33.8 g/dl Platelet Count 15 K/uL Mean Platelet Volume 12.6 fL RDW Standard Deviation 41.8 fL RDW Coefficient of Variation 11.6 % [~ rep ct add3]] CT SCAN OF THE ABDOMEN AND PELVIS WITHOUT IV CONTRAST CLINICAL HISTORY: Generalized abdominal pain. Hypotension. COMPARISON STUDY: Abdominal CT dated scans dated 05/16/2016 and 07/24/2014. TECHNIQUE: CT scan of the abdomen and pelvis is performed from the lung bases to the proximal femora. Images are reviewed in the axial, sagittal, and coronal planes. IV contrast was not administered for this examination as per the referring clinician. Note that the examination was performed in suboptimal fashion without oral and IV contrast. Automated dose control exposure was utilized. CT DOSE: 335.73 mGy.cm FINDINGS: Lung bases: The heart is normal in size and without pericardial effusion. There is dense airspace consolidation in the left lower lobe and trace left pleural effusion. The right lung base appears clear. Liver: The unenhanced liver is enlarged, measuring 23.8 cm in length. The liver demonstrates diffusely diminished attenuation consistent with hepatic steatosis. Fatty sparing is seen adjacent to the gallbladder fossa. There is no intrahepatic biliary ductal dilatation. Gallbladder: Normal as visualized. Spleen: Normal in size and attenuation. Pancreas: The pancreas is atrophic. The pancreatic tail appears truncated, and there is a 1.4 cm fluid attenuation structure in adjacent pancreatic tail again seen on image #[id number]. This has decreased in size from prior studies and likely represents a resolving pseudocyst. No additional peripancreatic fluid collections are identified. There is peripancreatic inflammation consistent with acute pancreatitis. Collateral vessels are again seen in the left upper quadrant. Adrenal glands: Mild nodularity of the left adrenal gland is similar to previous. Kidneys: The left kidney is slightly atrophic as compared to the right and demonstrates foci of cortical scarring. There is no hydronephrosis. No renal calculi are identified. Abdominal vasculature: The abdominal aorta is normal in course and caliber noting moderate and age advanced atherosclerotic calcification. Bowel: The small bowel and colon are normal in course and caliber. The appendix is well-visualized and normal. Peritoneum: There is no intraperitoneal free air or abdominal ascites. There is a small fat-containing umbilical hernia. Lymphadenopathy: Non-. Pelvic viscera: The bladder is decompressed and grossly unremarkable. The prostate and seminal vesicles are normal as visualized. There are small bilateral fat-containing inguinal hernias. Surgical clips are noted along the spermatic cord bilaterally. Skeletal structures: The skeletal structures are osteopenic. No lytic or blastic lesions are seen. IMPRESSION: 1. Suboptimal examination without oral and IV contrast. 2. Findings are consistent with left lower lobe pneumonia. Radiographic follow-up to resolution is recommended. 3. There are no acute infectious or inflammatory findings in the abdomen or pelvis. 4. Suspect a tiny resolving pseudocyst in t Assessment & Plan 36 yo male with chronic liver disease/pancreatitis now with sepsis with septic shock with evidence of LLL pneumonia. Aspiration-type certainly a possibility. Also worry about possibility of Anaplasmosis given thrombocytopenia and neutropenia, elevated liver enzymes, and patient with extensive outdoor exposure potential. Have started on empiric doxycycline and ordered appropriate studies. Will follow.
[2017-02-03] MEDS: D5W AND 1/2NSS 1,000 ML IV SCH ×2 (10:28→18:39)
[2017-02-03] MEDS ORDERED: VASOPRESSIN INJ 50 UNITS in SODIUM CHLORIDE 0.9% 500ML 500 ML IV SCH (10:30)
[2017-02-03] MEDS ORDERED: POTASSIUM PHOS 3 MMOL/1 ML INFUSION IV STA (10:43)
[2017-02-03] MEDS ORDERED: DOXYCYCLINE IV 100 MG in DEXTROSE 5% 100ML 100 ML IV SCH ×2 (11:00→21:00)
[2017-02-03] MEDS ORDERED: THIAMINE HCL INJ 200 MG in SODIUM CHLORIDE 0.9% 50ML 50 ML IV SCH (11:00)
[2017-02-03 11:11] LABS: COMPLETE YES; GIANT PLATELETS 3+; HOWELL-JOLLY BODIES 2+; LYMPH ABS # 0.31 K/uL (1.2-3.4); LYMPHOCYTE % 55.4 %; META ABS # 0.09 K/uL (0-0); METAMYELOCYTE % 16.1 %; MYELOCYTE % 8.8 %; NEUTROPHILS % 13.1 %; VACUOLIZATION 3+
[2017-02-03] MEDS ORDERED: POTASSIUM PHOSPHATE INJ 6 MMOL in SODIUM CHLORIDE 0.9% 100ML 100 ML IV SCH (11:30)
[2017-02-03] MEDS: HYDROCORTISONE IV 50 MG in SYRINGE 0 ML IV SCH ×2 (11:41→15:09)
[2017-02-03] MEDS: ASCORBIC ACID INJ 1,500 MG in NSS 100 ML IV SCH ×2 (11:42→16:34)
[2017-02-03] MEDS ORDERED: GABAPENTIN 100MG Q6H DOSE PO SCH (12:00)
--- NOTE | 2017-02-03 12:07 | Progress Note ---
Internal Med Progress Note Date of Service: Feb 03, 2017. Provider Documentation: SUBJECTIVE: pt seen in ICU 105 on 2 pressors -Levophed /added Vasopressin to keep MAP 65 continues to cough have large amount of yellow brown sputum awake , able to answer questions complains of diffuse pain in lower abdomen -ponting to rt and left lower quadrant remains hypoxic on 12 L 02 via face mask spo2 in high 80's tachycardic OBJECTIVE: Vital Signs-as noted below Exam: General-young male, very ill appearing Eyes-bilateral icteric sclera ENT-dry oral mucosa Neck-no JV noted Lungs-diminished with rales /crackles at base Heart-tachycardic Abdomen-tenderness on RLL/LLL . no rebound , bowel sound diminished Extremities-no rash , edema or deformity noted Neuro-no focal deficit Lab data as noted below. ASSESSMENT & PLAN: 36 year old male with history of Alcoholism, Chronic Pancreatitis, DM, HTN, Depression, Smoker, presented with severe sepsis /possible source of infection left lower lobe pneumonia SEVERE SEPSIS WITH SEPTIC SHOCK - likely from left lower lobe pneumonia, with effusion Presented with hypotension , tachycardia , severe neutropenia , KAYLA , abnormal LFT, elevated lactic acid admitted to ICU - received 4 liters NSS boluses ; cont IVF fluid resuscitation at 125cc/hr requiring pressors started on Levophed , added Vasopressin started on stress dose of IV Hydrocortisone appreciate input from system sales consultant houser culture -blood /urine /sputum culture ordered -will follow report ID eval requested pt is on empiric Abx with Vancomycin /Zosyn /Levaquin -Doxycycline ordered for additional coverage for atypicals and anaplasmosis lab work : PRP /Lactic acid will be followed q 4hrs as per sepsis protocol ACUTE HYPOXEMIC RESPIRATORY FAILURE due to left lower lobe pneumonia concern for aspiration -hx of alcoholism /possible aspiration while intoxicated pt continues to cough profuse amount of yellow /brown sputum sputum specimen ordered for C&S requiring high supplemental 02 -12 L on face mask serial blood gas ordered to be checked to correct hypoxemia Doctor Assistant following on Abx as out lined above CT chest with out contrast ordered to assess further extent of lung parenchymal involvement cont to monitor in ICU SEVERE NEUTROPENIA, THROMBOCYTOPENIA WBC 0.56 with ANC 0.07 HB 12 - secondary to Sepsis, Alcoholism ? -cont management of sepsis as out lined above ordered to check CBC with diff q 8hrs till ANC > 100 ordered for Neupogen by Doctor Assistant - neutropenic precautions -last blood work : CBC was wnl Peripheral smear -shows no blasts , severe neutropenia , thrombocytopenia ; intracellular cocci in WBC -Hematology consulted -case D/w Dr Barragan HYPONATREMIA - due to sepsis /dehydration started on IV NSS , NA improved 117 -125 IVF changed to D5W NSS to prevent rapid correction monitor PRP q4hr pt was on HCTZ at home -discontinued ACUTE RENAL FAILURE Cr elevated > 3 - likely pre renal, related to Sepsis cont IVF fluid , pressures to keep MAP ~65 follow lytes closely home diuretics -lisinopril /HCTZ discontinued DM 2 -presented with hyperglycemia due to sepsis started on IV insulin gtt - home medications Lantus, Glipizide, Metformin: on hold for now pharm consulted for glycemic control ELEVATED LACTIC ACID due to severe sepsis , hypotension -leading to poor tissue perfusion cont IVF , pressures to keep MAP ~ 65 monitor Lactic acid q4h ABNORMAL LFT S' DIRECT BILIRUBINEMIA TRANSAMINITIS - - GB US -shows not evidence of cholangitis or gall bladder disease CT abdomen /pelvis -hepatic steatosis , no intra abdominal pathology acute on chronic alcoholic hepatitis worsening on setting of septic shock - GI consulted follow LFT's close hepatitis panel ordered -prelim results -negative CHRONIC SUBOXONE USE - Suboxone ordered DEPRESSION DC Celexa in setting of severe sepsis /abnormal transaminase ALCOHOLISM - mentions last drink Tuesday - no signs of DTs/Withdrawal - will hold Gabapentin protocol -transaminitis /severe sepsis -PRN IV Ativan for symptom of anxiety /tremors ( pt does not have any symptoms now ) monitor closely RIGHT INGUINAL HERNIA CT abdomen /pelvis -no evidence of incarcerated rt inguinal hernia - scheduled for repair by Dr. Segura on 02/07 FULL CODE PER PATIENT DVT PROPHYLAXIS SCD and teds ( severe thrombocytopenia ; Platelet count 15K) DISPOSITION to be determined remains critically ill in ICU requiring pressors Vital Signs: Date Time Temp Pulse Resp B/P (MAP) Pulse Ox O2 Delivery O2 Flow Rate FiO2 02/03/17 08:00 Oxymask 7.0 02/03/17 06:47 38.4 146 36 93/53 Nasal Cannula 3.0 02/03/17 06:02 143 22 92/43 93 Nasal Cannula 3.0 02/03/17 05:56 36.5 132 22 81/46 93 Nasal Cannula 3.0 02/03/17 05:35 134 22 88/49 93 Nasal Cannula 2.0 02/03/17 04:52 128 22 76/36 92 Nasal Cannula 2.0 02/03/17 04:00 37.4 02/03/17 03:47 130 22 80/44 97 Room Air 02/03/17 02:55 127 24 65/40 100 Room Air 02/03/17 02:45 99 Room Air 02/03/17 02:40 137 02/03/17 02:31 39.2 141 22 82/57 100 Room Air Lab Results: Results Past 24 Hours Test 02/03/17 02:43 02/03/17 02:45 02/03/17 02:52 02/03/17 03:04 Range/Units Bedside Glucose 380 70-99 mg/dl White Blood Count 0.57 4.8-10.8 K/uL Red Blood Count 4.13 4.7-6.1 M/uL Hemoglobin 14.3 14.0-18.0 g/dL Hematocrit 40.8 42-52 % Mean Corpuscular Volume 98.8 80-100 fL Mean Corpuscular Hemoglobin 34.6 25-34 pg Mean Corpuscular Hemoglobin Concent 35.0 32-36 g/dl Platelet Count 32 130-400 K/uL Mean Platelet Volume 12.8 7.4-10.4 fL Neutrophils (%) (Auto) 36.8 % Lymphocytes (%) (Auto) 54.4 % Monocytes (%) (Auto) 7.0 % Eosinophils (%) (Auto) 0.0 % Basophils (%) (Auto) 0.0 % Neutrophils # (Auto) 0.21 1.4-6.5 K/uL Lymphocytes # (Auto) 0.31 1.2-3.4 K/uL Monocytes # (Auto) 0.04 0.11-0.59 K/uL Eosinophils # (Auto) 0.00 0-0.5 K/uL Basophils # (Auto) 0.00 0-0.2 K/uL RDW Standard Deviation 43.0 36.4-46.3 fL RDW Coefficient of Variation 11.9 11.5-14.5 % Immature Granulocyte % (Auto) 1.8 % Immature Granulocyte # (Auto) 0.01 0.00-0.02 K/uL Toxic Vacuolation 2+ Platelet Estimate DECREASED Large Platelets 3+ Pappenheimer Bodies 1+ Peripheral Blood Smear Path Consult Prothrombin Time 14.6 9.0-12.0 SECONDS Prothromb Time International Ratio 1.3 0.9-1.1 Sodium Level 117 136-145 mmol/L Potassium Level 3.9 3.5-5.1 mmol/L Chloride Level 77 98-107 mmol/L Carbon Dioxide Level 21 21-32 mmol/L Anion Gap 19.0 3-11 mmol/L Blood Urea Nitrogen 29 7-18 mg/dl Creatinine 3.70 0.60-1.40 mg/dl Est Creatinine Clear Calc Drug Dose 28.2 ml/min Estimated GFR () 22.8 Estimated GFR (Non- 19.7 BUN/Creatinine Ratio 7.8 10-20 Random Glucose 353 70-99 mg/dl Osmolality 275 280-300 mOsm/kg Calcium Level 6.7 8.5-10.1 mg/dl Total Bilirubin 6.9 0.2-1 mg/dl Direct Bilirubin 5.4 0-0.2 mg/dl Aspartate Amino Transf (AST/SGOT) 220 15-37 U/L Alanine Aminotransferase (ALT/SGPT) 126 12-78 U/L Alkaline Phosphatase 82 45-117 U/L Total Protein 5.6 6.4-8.2 gm/dl Albumin 2.2 3.4-5.0 gm/dl Lipase 24 73-393 U/L Beta-Hydroxybutyric Acid 3.65 0.2-2.81 mg/dL Bedside Lactic Acid Venous 8.96 0.90-1.70 mmol/L Ethyl Alcohol mg/dL < 3.0 0-3 mg/dl Test 02/03/17 04:28 02/03/17 05:17 02/03/17 05:30 02/03/17 07:24 Range/Units Venous Blood pH 7.36 7.36 7.36-7.41 Venous Blood Partial Pressure CO2 31 38.0-50.0 mmHg Venous Blood Partial Pressure O2 39 mmHg Venous Blood HCO3 17 mmol/L Venous Blood Oxygen Saturation 69.8 % Venous Blood Base Excess -7.2 mEq/L Ammonia 18.0 11-32 umol/L Bedside Glucose 300 70-99 mg/dl Urine Color DK YELLOW Urine Appearance CLOUDY CLEAR Urine pH 5.0 4.5-7.5 Urine Specific [place] 1.027 1.000-1.030 Urine Protein 1+ NEG Urine Glucose (UA) NEG NEG Urine Ketones TRACE NEG Urine Occult Blood TRACE NEG Urine Nitrite POS NEG Urine Bilirubin 1+ NEG Urine Urobilinogen NEG NEG Urine Leukocyte Esterase NEG NEG Urine WBC (Auto) 5-10 0-5 /hpf Urine RBC (Auto) 5-10 0-4 /hpf Urine Hyaline Casts (Auto) >30 0-5 /lpf Urine Epithelial Cells (Auto) 20-30 0-5 /lpf Urine Bacteria (Auto) 1+ NEG Urine Crystals CALCIUM OXALATE NONE PRSENT Urine Pathogenic Casts 0 /lpf Urine Osmolality 310 500-800 mOms/kg Urine Random Sodium < 5 mEq/L Urine Opiates Screen POS NEG Urine Methadone, Qualitative NEG NEG Urine Barbiturates NEG NEG Urine Phencyclidine (PCP) Level NEG NEG Ur Amphetamine/Methamphetamine NEG NEG MDMA (Ecstasy) Screen NEG NEG Urine Benzodiazepines Screen NEG NEG Urine Cocaine Metabolite NEG NEG Urine Marijuana (THC) NEG NEG Sodium Level 124 136-145 mmol/L Potassium Level 3.5 3.5-5.1 mmol/L Chloride Level 91 98-107 mmol/L Carbon Dioxide Level 16 21-32 mmol/L Anion Gap 17.0 3-11 mmol/L Blood Urea Nitrogen 30 7-18 mg/dl Creatinine 3.20 0.60-1.40 mg/dl Est Creatinine Clear Calc Drug Dose 32.6 ml/min Estimated GFR () 27.2 Estimated GFR (Non- 23.5 BUN/Creatinine Ratio 9.3 10-20 Random Glucose 199 70-99 mg/dl Lactic Acid Level 6.9 0.4-2.0 mmol/L Calcium Level 5.8 8.5-10.1 mg/dl Phosphorus Level 2.1 2.5-4.9 mg/dl Magnesium Level 0.4 1.8-2.4 mg/dl Test 02/03/17 07:35 02/03/17 07:52 02/03/17 09:46 02/03/17 10:02 Range/Units Bedside Glucose (other) 184 70-99 mg/dl White Blood Count 0.56 4.8-10.8 K/uL Red Blood Count 3.59 4.7-6.1 M/uL Hemoglobin 12.0 14.0-18.0 g/dL Hematocrit 35.5 42-52 % Mean Corpuscular Volume 98.9 80-100 fL Mean Corpuscular Hemoglobin 33.4 25-34 pg Mean Corpuscular Hemoglobin Concent 33.8 32-36 g/dl Platelet Count 15 130-400 K/uL Mean Platelet Volume 12.6 7.4-10.4 fL RDW Standard Deviation 41.8 36.4-46.3 fL RDW Coefficient of Variation 11.6 11.5-14.5 % Neutrophils % (Manual) 13.1 % Lymphocytes % (Manual) 55.4 % Monocytes % (Manual) 6.6 % Metamyelocytes % 16.1 % Myelocytes % 8.8 % Neutrophils # (Manual) 0.07 1.4-6.5 K/uL Total Absolute Neutrophils 0.07 1.4-6.5 K/uL Lymphocytes # (Manual) 0.31 1.2-3.4 K/uL Total Absolute Lymphocytes 0.31 1.2-3.4 K/uL Monocytes # (Manual) 0.04 0.11-0.59 K/uL Metamyelocytes # 0.09 0-0 K/uL Myelocytes # 0.05 0-0 K/uL Toxic Vacuolation 3+ Giant Platelets 3+ [place] Bodies 2+ Test 02/03/17 10:04 02/03/17 10:53 02/03/17 11:28 02/03/17 11:30 Range/Units Microbiology Results 02/03/17 Blood Culture, Received Pending 02/03/17 Blood Culture, Received Pending 02/03/17 MRSA DNA Surveillance Screen - Final, Complete Specimen Negative for MRSA by DNA Probe 02/03/17 C.difficile Toxin B Gene (PCR) - Final, Complete No C. difficile toxin B gene detected 02/03/17 Shiga Toxin Test, Received Pending 02/03/17 Stool Culture, Received Pending 02/03/17 Gram Stain, Received Pending 02/03/17 Sputum Culture, Received Pending 02/03/17 Urine Culture, Received Pending
[2017-02-03] MEDS ORDERED: RAPID SEQUENCE INDUCTION BAG ONE (12:45)
[2017-02-03] MEDS ORDERED: PROPOFOL IV EMULSION 10 MG/ML 100 ML VIAL IV ONE (12:46)
[2017-02-03 12:50] LABS: MEAN CELL VOLUME 98.1 fL (80-100); MEAN CORPUSCULAR HEMOGLOBIN 33.7 pg (25-34); RED BLOOD COUNT 3.77 M/uL (4.7-6.1); WHITE BLOOD COUNT 0.69 K/uL (4.8-10.8)
[2017-02-03 13:01] LABS: PARTIAL THROMBOPLASTIN RATIO 2.3
[2017-02-03 13:07] LABS: MAGNESIUM 1.4 mg/dl (1.8-2.4); POTASSIUM 3.5 mmol/L (3.5-5.1)
[2017-02-03 13:08] LABS: ISTAT ARTERIAL BLOOD GAS HCO3 18 meq/L (19-24); ISTAT ARTERIAL BLOOD GAS PCO2 41 mmHg (35-46); ISTAT ARTERIAL BLOOD GAS PO2 < 32 mmHg (80-95); ISTAT ARTERIAL BLOOD GAS pH 7.26 (7.35-7.45); ISTAT CARBON DIOXIDE 19 mEq/l (24-31); ISTAT HEMATOCRIT 39 % (42-52); ISTAT HEMOGLOBIN 13.3 g/dl (14.0-18.0); ISTAT SODIUM 117 mEq/L (135-144)
[2017-02-03 13:15] LABS: MEAN CORPUSCULAR HGB CONC 34.3 g/dl (32-36); PLATELET COUNT 11 K/uL (130-400)
[2017-02-03 13:27] LABS: BUN/CREATININE RATIO 11.1 (10-20); CALCIUM 5.8 mg/dl (8.5-10.1); CREATININE 2.4 mg/dl (0.60-1.40); PHOSPHORUS 2.4 mg/dl (2.5-4.9)
[2017-02-03] MEDS ORDERED: MIDAZOLAM 125MG/250ML D5W 250 ML IV PRN (13:30)
[2017-02-03] MEDS ORDERED: SODIUM CHLORIDE 0.9% 500ML 500 ML IV STA (13:38)
[2017-02-03 14:34] LABS: LYME DISEASE AB IGM NEG (NEG)
[2017-02-03 14:35] LABS: LYME DISEASE AB IGG NEG (NEG)
[2017-02-03 14:48] LABS: COMPLETE YES
--- NOTE | 2017-02-03 14:48 | Gastrointestinal Consultation ---
Gastrointestinal Consultation Date of Consultation: Feb 03, 2017 Attending Physician: Teresita Rudolph Consulting Physician: Rob Arenas Reason for Consultation: Elevated LFTs, direct bilirubin History of Present Illness Patient is a 36 year old male seen for elevated LFTs and direct bilirubin. He has hx of ETOH abuse, chronic pancreatitis, DM, HTN, Depression, tobacco abuse. He presented to ED w c/o pain across lower abd area and loose stools for a few days. Prior to this, he has been c/o productive cough and SOB x 1 weeks. + chills, but no fevers. He was noted to be hypotensive, tachycardic and febrile upon eval in ED. Labs also notable for neutropenia (WBC 0.37), thrombocytopenia (Plt 32) , ARF Cr 3.7, lactic acidosis, hyponatremia Na 117, elevated LFTs ( Tbili 6, direct bili 5, AST 200s, ALT 100s, normal AP, and Lipase). Imaging studies consistent w LLL pneumonia. Pt admitted for septic shock, pneumonia management. Had received Vancomycin, Zosyn IV antibx. Currently on O2 7L per mask. Blood,urine and sputum cx pending. He admits to drink 2 boxes of wine a week, last drink was Tuesday 1box. Hx of pancreatitis likely due to ETOH abuse, has had EUS eval in the past showing calcification, lobularity, honeycombing of pancreas. Imaging study this admission showed signs of fatty liver, no biliary ductal dilation, CBD 2mm, no gallstones. Past Medical/Surgical History Medical Problems: (1) Abdominal pain Status: Acute (2) DKA (diabetic ketoacidoses) Status: Acute (3) Hepatorenal syndrome Status: Acute (4) History of chronic pancreatitis Status: Acute (5) Hyperglycemia Status: Acute (6) Hyponatremia Status: Acute (7) Lactic acid acidosis Status: Acute (8) Left lower lobe pneumonia Status: Acute (9) Neutropenic fever Status: Acute (10) Renal failure Status: Acute (11) Septic shock Status: Acute (12) Substernal chest pain Status: Acute (13) Transaminitis Status: Acute (14) Upper abdominal pain Status: Acute Past Medical History: See above. Past Surgical History: [place] teeth extraction, vasectomy Family History Cancer Diabetes mellitus Heart disease Hypertension Lung disease Social History Smoking Status: Current Some Day Smoker Alcohol Use: heavy Drug Use: none Marital Status: single Housing Status: lives with family Occupation Status: employed Allergies Coded Allergies: Iodinated Diagnostic Agents (Verified Allergy, Unknown, UNKNOWN, 02/03/17) NO KNOWN DRUG ALLERGIES (Unverified Allergy, Unknown, NONE, 01/14/17) Current Medications Home Meds and Scripts Medications Dose Route/Sig Max Daily Dose Days Date Category Dose Instructions Suboxone 8-2 Mg (Buprenorphine Hcl-Naloxone Hcl) 1 Sub Sub 2-2.5 Tab SL DAILY 01/14/17 Reported PT TO CHECK WITH SURGEON FOR DIRECTIONS AT ADVICE OF RX' ING DR [facility] Carafate (Sucralfate) 1 Gm Tab 1 Gm PO QID 01/14/17 Reported Glipizide Er (Glipizide) 5 Mg Tab 1 Tab PO QAM 90 01/14/17 Reported Glucophage (Metformin Hcl) 1,000 Mg Tab 1 Tab PO BID 05/18/16 Reported Norvasc (Amlodipine Besylate) 10 Mg Tab 10 Mg PO QAM 05/18/16 Reported Lantus Solostar (Insulin Glargine) 100 Unit/Ml Inj 10-32 Units SC DAILY 05/15/16 Reported CHECKS BLOOD SUGARS SEVERAL TIMES A DAY-SLIDING SCALE Hctz (Hydrochlorothiazide) 25 Mg Tab 25 Mg PO QAM 05/15/16 Reported Celexa (Citalopram Hydrobromide) 40 Mg Tab 40 Mg PO QAM 05/15/16 Reported Phospha 250 Neutral (Pot Phosphate Monobasic W/ Sod) 1 Tab Tab 1 Tab PO QID 05/15/16 Reported Neurontin (Gabapentin) 300 Mg Cap 300 Mg PO TID 11/27/15 Reported Zantac (Ranitidine HCl) 300 Mg Tab 300 Mg PO HS 07/08/15 Reported Lipitor (Atorvastatin) 20 Mg Tab 20 Mg PO QAM 07/08/15 Reported Lisinopril 40 Mg Tab 40 Mg PO QAM 02/09/15 Reported Trazodone (Trazodone HCl) 50 Mg Tab 50 Mg PO HS PRN 12/18/13 Reported Prilosec (Omeprazole) 20 Mg Capcr 40 Mg PO QAM 12/18/13 Reported Review of Systems Constitutional: + fever, + chills Respiratory: + cough, + sputum, + shortness of breath Cardiac: No chest pain Abdomen: + pain, + diarrhea, No nausea, No vomiting, No GI bleeding Physical Exam Date Time Temp Pulse Resp B/P (MAP) Pulse Ox O2 Delivery O2 Flow Rate FiO2 02/03/17 13:57 37.0 132 32 91 02/03/17 13:41 37.9 133 23 45/39 91 02/03/17 13:13 100 02/03/17 08:00 Oxymask 7.0 02/03/17 06:47 38.4 146 36 93/53 Nasal Cannula 3.0 02/03/17 06:02 143 22 92/43 93 Nasal Cannula 3.0 02/03/17 05:56 36.5 132 22 81/46 93 Nasal Cannula 3.0 02/03/17 05:35 134 22 88/49 93 Nasal Cannula 2.0 02/03/17 04:52 128 22 76/36 92 Nasal Cannula 2.0 02/03/17 04:00 37.4 02/03/17 03:47 130 22 80/44 97 Room Air 02/03/17 02:55 127 24 65/40 100 Room Air 02/03/17 02:45 99 Room Air 02/03/17 02:40 137 02/03/17 02:31 39.2 141 22 82/57 100 Room Air General Appearance: + mild distress (c/o abd pain, having tremors on arms. ) Eyes: normal inspection, PERRL, EOMI Neck: supple, no JVD, trachea midline Respiratory/Chest: + decreased breath sounds Cardiovascular: regular rate, rhythm, no gallop, no murmur, + tachycardia Abdomen: normal bowel sounds, soft, + tenderness (TTP across lower abd) Extremities: normal inspection, no pedal edema, no calf tenderness Neurologic/Psych: alert, normal mood/affect, oriented x 3 Skin: normal color, no jaundice, no rash Laboratory Results Last 24 Hours Test 02/03/17 02:43 02/03/17 02:45 02/03/17 02:52 02/03/17 03:04 Bedside Glucose 380 mg/dl White Blood Count 0.57 K/uL Red Blood Count 4.13 M/uL Hemoglobin 14.3 g/dL Hematocrit 40.8 % Mean Corpuscular Volume 98.8 fL Mean Corpuscular Hemoglobin 34.6 pg Mean Corpuscular Hemoglobin Concent 35.0 g/dl Platelet Count 32 K/uL Mean Platelet Volume 12.8 fL Neutrophils (%) (Auto) 36.8 % Lymphocytes (%) (Auto) 54.4 % Monocytes (%) (Auto) 7.0 % Eosinophils (%) (Auto) 0.0 % Basophils (%) (Auto) 0.0 % Neutrophils # (Auto) 0.21 K/uL Lymphocytes # (Auto) 0.31 K/uL Monocytes # (Auto) 0.04 K/uL Eosinophils # (Auto) 0.00 K/uL Basophils # (Auto) 0.00 K/uL RDW Standard Deviation 43.0 fL RDW Coefficient of Variation 11.9 % Immature Granulocyte % (Auto) 1.8 % Immature Granulocyte # (Auto) 0.01 K/uL Toxic Vacuolation 2+ Platelet Estimate DECREASED Large Platelets 3+ Pappenheimer Bodies 1+ Peripheral Blood Smear Path Consult Prothrombin Time 14.6 SECONDS Prothromb Time International Ratio 1.3 Sodium Level 117 mmol/L Potassium Level 3.9 mmol/L Chloride Level 77 mmol/L Carbon Dioxide Level 21 mmol/L Anion Gap 19.0 mmol/L Blood Urea Nitrogen 29 mg/dl Creatinine 3.70 mg/dl Est Creatinine Clear Calc Drug Dose 28.2 ml/min Estimated GFR () 22.8 Estimated GFR (Non- 19.7 BUN/Creatinine Ratio 7.8 Random Glucose 353 mg/dl Osmolality 275 mOsm/kg Calcium Level 6.7 mg/dl Total Bilirubin 6.9 mg/dl Direct Bilirubin 5.4 mg/dl Aspartate Amino Transf (AST/SGOT) 220 U/L Alanine Aminotransferase (ALT/SGPT) 126 U/L Alkaline Phosphatase 82 U/L Total Protein 5.6 gm/dl Albumin 2.2 gm/dl Lipase 24 U/L Beta-Hydroxybutyric Acid 3.65 mg/dL Bedside Lactic Acid Venous 8.96 mmol/L Ethyl Alcohol mg/dL < 3.0 mg/dl Test 02/03/17 04:28 02/03/17 05:17 02/03/17 05:30 02/03/17 07:24 Venous Blood pH 7.36 7.36 Venous Blood Partial Pressure CO2 31 mmHg Venous Blood Partial Pressure O2 39 mmHg Venous Blood HCO3 17 mmol/L Venous Blood Oxygen Saturation 69.8 % Venous Blood Base Excess -7.2 mEq/L Ammonia 18.0 umol/L Bedside Glucose 300 mg/dl Urine Color DK YELLOW Urine Appearance CLOUDY Urine pH 5.0 Urine Specific [place] 1.027 Urine Protein 1+ Urine Glucose (UA) NEG Urine Ketones TRACE Urine Occult Blood TRACE Urine Nitrite POS Urine Bilirubin 1+ Urine Urobilinogen NEG Urine Leukocyte Esterase NEG Urine WBC (Auto) 5-10 /hpf Urine RBC (Auto) 5-10 /hpf Urine Hyaline Casts (Auto) >30 /lpf Urine Epithelial Cells (Auto) 20-30 /lpf Urine Bacteria (Auto) 1+ Urine Crystals CALCIUM OXALATE Urine Pathogenic Casts /lpf Urine Osmolality 310 mOms/kg Urine Random Sodium < 5 mEq/L Urine Opiates Screen POS Urine Methadone, Qualitative NEG Urine Barbiturates NEG Urine Phencyclidine (PCP) Level NEG Ur Amphetamine/Methamphetamine NEG MDMA (Ecstasy) Screen NEG Urine Benzodiazepines Screen NEG Urine Cocaine Metabolite NEG Urine Marijuana (THC) NEG Sodium Level 124 mmol/L Potassium Level 3.5 mmol/L Chloride Level 91 mmol/L Carbon Dioxide Level 16 mmol/L Anion Gap 17.0 mmol/L Blood Urea Nitrogen 30 mg/dl Creatinine 3.20 mg/dl Est Creatinine Clear Calc Drug Dose 32.6 ml/min Estimated GFR () 27.2 Estimated GFR (Non- 23.5 BUN/Creatinine Ratio 9.3 Random Glucose 199 mg/dl Lactic Acid Level 6.9 mmol/L Calcium Level 5.8 mg/dl Phosphorus Level 2.1 mg/dl Magnesium Level 0.4 mg/dl Test 02/03/17 07:35 02/03/17 07:52 02/03/17 09:18 02/03/17 10:17 Bedside Glucose (other) 184 mg/dl 305 mg/dl 136 mg/dl White Blood Count 0.56 K/uL Red Blood Count 3.59 M/uL Hemoglobin 12.0 g/dL Hematocrit 35.5 % Mean Corpuscular Volume 98.9 fL Mean Corpuscular Hemoglobin 33.4 pg Mean Corpuscular Hemoglobin Concent 33.8 g/dl Platelet Count 15 K/uL Mean Platelet Volume 12.6 fL RDW Standard Deviation 41.8 fL RDW Coefficient of Variation 11.6 % Neutrophils % (Manual) 13.1 % Lymphocytes % (Manual) 55.4 % Monocytes % (Manual) 6.6 % Metamyelocytes % 16.1 % Myelocytes % 8.8 % Neutrophils # (Manual) 0.07 K/uL Total Absolute Neutrophils 0.07 K/uL Lymphocytes # (Manual) 0.31 K/uL Total Absolute Lymphocytes 0.31 K/uL Monocytes # (Manual) 0.04 K/uL Metamyelocytes # 0.09 K/uL Myelocytes # 0.05 K/uL Toxic Vacuolation 3+ Giant Platelets 3+ [place] Bodies 2+ Test 02/03/17 10:47 02/03/17 12:01 02/03/17 12:07 02/03/17 12:30 Bedside Glucose (other) 134 mg/dl 167 mg/dl White Blood Count 0.69 K/uL Red Blood Count 3.77 M/uL Hemoglobin 12.7 g/dL Hematocrit 37.0 % Mean Corpuscular Volume 98.1 fL Mean Corpuscular Hemoglobin 33.7 pg Mean Corpuscular Hemoglobin Concent 34.3 g/dl Platelet Count 11 K/uL RDW Standard Deviation 41.7 fL RDW Coefficient of Variation 11.7 % Activated Partial Thromboplast Time 59.7 SECONDS Partial Thromboplastin Ratio 2.3 Fibrin Degradation Products 10-40 mcg/ml D-Dimer 2490 ug/L FEU Sodium Level 122 mmol/L Potassium Level 3.5 mmol/L Chloride Level 90 mmol/L Carbon Dioxide Level 19 mmol/L Anion Gap 13.0 mmol/L Blood Urea Nitrogen 27 mg/dl Creatinine 2.40 mg/dl Est Creatinine Clear Calc Drug Dose 43.5 ml/min Estimated GFR () 38.5 Estimated GFR (Non- 33.2 BUN/Creatinine Ratio 11.1 Random Glucose 177 mg/dl Lactic Acid Level 4.1 mmol/L Uric Acid 5.0 mg/dl Calcium Level 5.8 mg/dl Phosphorus Level 2.4 mg/dl Magnesium Level 1.4 mg/dl Lactate Dehydrogenase 310 U/L Vitamin B12 Level 1987 pg/mL Folate > 24.00 ng/mL Lyme Disease IgM Antibody NEG Hepatitis B Surface Antigen NEG Hepatitis C Antibody NEG HIV (1&2) Ab and P24 Ag, 4th Gener NEG Bedside Hemoglobin 13.3 g/dl Bedside Hematocrit 39 % Bedside Blood Gas pH (LAB) 7.26 Bedside Blood Gas pCO2 (LAB) 41 mmHg Bedside Blood Gas pO2 (LAB) < 32 mmHg Bedside Blood Gas HCO3 (LAB) 18 meq/L Bedside Blood Gas Total CO2 19 mEq/l Bedside Blood Gas Base Excess (LAB) -9.0 meq/L Bedside Blood Gas O2 Saturation 30.0 % Bedside Sodium 117 mEq/L Bedside Potassium 3.2 mEq/L Test 02/03/17 14:00 02/03/17 14:22 Impression Patient is a 36 year old male w septic shock, pneumonia, seen for elevated LFTs. Given fatty liver only seen on imaging studies w/o signs of biliary dilation, gallstones, suspect LFT abnormality is related to shock liver and possibly ETOH hepatitis as well (hx of ETOH abuse, chronic pancreatitis) Plan - Would monitor LFTs, Cr, INR for now. Defer use of steroids for ETOH hepatitis treatment given current infection. Also unable to use Trental given poor renal function. - F/U cultures for infectious workup; will add Cdiff and stool cx studies. - Defer to Infectious Disease and primary team on antibx choice - DT protocol. - Will continue to follow along. I have seen, examined, and agree with the plan as outlined above by MARISOL Coyle -Appears to have significant PNA with parapneumonic effusion -May have ALPS (Alcoholic Leukopenic Pneumococcal Sepsis) given Labs and PNA -No evidence of cholangitis given imaging and normal Alk Phosph, he has had recent binge Etoh, may have overlying Alk Hep, but would not give steroids in setting of infection -Trental is a bit more controversial in effects, if any benefit, only to avoid hepatorenal syndrome and already has ARF -Supportive care per ICU -Closely monitor for Withdrawl
[2017-02-03 14:59] LABS: IPF 9.8 % (0.9-8.3)
[2017-02-03 15:11] LABS: GIANT PLATELETS 3+; HOWELL-JOLLY BODIES 2+; TOXIC GRANULATION 2+; VACUOLIZATION 2+
[2017-02-03 15:12] LABS: EOSINOPHIL % 0.5 %; LYMPH ABS # 0.36 K/uL (1.2-3.4); LYMPHOCYTE % 51.8 %; METAMYELOCYTE % 15.1 %; MYELOCYTE % 2.5 %; NEUTROPHILS % 23.1 %
--- NOTE | 2017-02-03 15:13 | Critical Care Consultation ---
Critical Care Consultation Date of Consultation: Feb 03, 2017. Attending Physician: Teresita Rudolph M.D. Reason for Consultation: Pancytopenia, Respiratory Distress, LEFT Lower Lobe Pneumonia History of Present Illness Patient is a 36-year-old male who was admitted to the ICU this morning from the emergency department for pneumonia, pancytopenia, and septic shock. The patient has a long-standing history of alcohol abuse, insulin-dependent diabetes , and recurrent pancreatitis. Patient reports enjoying his typical good state of health until Tuesday. On Tuesday evening, the patient gets to drinking one box of wine. This is thought to be the equivalent of 5 L. He felt fine until Tuesday evening when he developed vomiting. He initially equated to the drinking and being hung over, but reports that he had persistent vomiting throughout the next few days. He was attempting to drink water and Gatorade with minimal relief of symptoms. He reports developing orange-colored vomiting which she described as tasting "gland". He had some diarrhea as well. The patient had a persistent cough which she reports started after his vomiting episodes. He does admit that he felt as though he might have aspirated some of his vomitus material on Tuesday or Tuesday. Initially, the patient came to the emergency department as he was having increasing pain in his lower abdomen thought to be related to his return of pancreatitis. In addition, he was experiencing lightheadedness with changes in position. He did reportedly sustain a fall from standing, but denies sustaining an injury. While in the emergency department, the patient was found to be hypoxic as well as tachycardic and hypotensive. A central line was placed in the RIGHT femoral. The patient was initially treated with vancomycin, Zosyn, and Levaquin. He was felt to have a an aspiration pneumonia to the LEFT lower lobe. A CT of his abdomen and pelvis was obtained as was an ultrasound of the gallbladder which were felt to be otherwise unremarkable. On evaluation today, the patient is complaining of some difficulty with breathing as well as a cough. The patient is producing orange colored sputum which she is spitting into a cup. There is no foul smell. The patient complains of some lower abdominal discomfort which he reports has improved since presentation. He reports no history of similar symptoms. He does admit to smoking approximately one pack of cigarettes per day in addition to his alcohol use. He denies any illicit drug use. He did have a recent incarceration approximately one month ago for 6 days secondary to failure to pay child support. The patient denies any other recent sick contacts. Currently, the patient denies any headaches, dizziness, lightheadedness, chest pain, hemoptysis, hematemesis, hematochezia, melena, hematuria, or dysuria. Past Medical/Surgical History Medical Problems: (1) Alcoholic hepatitis (2) Anxiety disorder (3) Chronic alcoholic pancreatitis (4) Depression (5) Depressive disorder (6) DM type 2 (diabetes mellitus, type 2) (7) History of alcohol abuse (8) History of Clostridium difficile (9) Hyperlipidemia (10) Hypertension (11) Pancreatitis (12) Tobacco abuse (13) Wernicke encephalopathy Surgical Problems: (1) H/O wisdom tooth extraction (2) S/P vasectomy Family History Cancer Diabetes mellitus Heart disease Hypertension Lung disease Social History Smoking Status: Current Every Day Smoker Smokeless Tobacco Use: No Alcohol Use: heavy Drug Use: none Marital Status: single Housing Status: lives with family Occupation Status: employed Allergies Coded Allergies: Iodinated Diagnostic Agents (Verified Allergy, Unknown, UNKNOWN, 02/03/17) NO KNOWN DRUG ALLERGIES (Unverified Allergy, Unknown, NONE, 01/14/17) Home Medications Scheduled Amlodipine (Norvasc), 10 MG PO QAM Atorvastatin (Lipitor), 20 MG PO QAM Buprenorphine Hcl-Naloxone Hcl (Suboxone 8-2 Mg), 2-2.5 TAB SL DAILY Citalopram Hydrobromide (Celexa), 40 MG PO QAM Filgrastim (Neupogen), 300 MCG SQ DAILY Gabapentin (Neurontin), 300 MG PO TID Glipizide (Glipizide Er), 1 TAB PO QAM Hydrochlorothiazide (Hctz), 25 MG PO QAM Insulin Glargine (Lantus Solostar), 10-32 UNITS SC DAILY Ipratropium [place] (Ipratropium [place]), 0.5 MG INH Q6R Levalbuterol (Levalbuterol), 1.25 MG INH Q6R Lisinopril (Lisinopril), 40 MG PO QAM Metformin Hcl (Glucophage), 1 TAB PO BID Omeprazole (Prilosec), 40 MG PO QAM Pot Phosphate Monobasic W/ Sod (Phospha 250 Neutral), 1 TAB PO QID Ranitidine Hcl (Zantac), 300 MG PO HS Sucralfate (Carafate), 1 GM PO QID Scheduled PRN Trazodone Hcl (Trazodone), 50 MG PO HS PRN for PRN [Piperacill/Tazobac Consult], 1 EA N/A UD PRN for Consult [Vancomycin Consult Active], 1 EA N/A DAILY PRN for Consult Current Inpatient Medications Current Inpatient Medications Medications (Trade) Dose Ordered Sig/Elidia Route Start Time Stop Time Status Last Admin Dose Admin Norepinephrine Bitartrate 8 mg/ Dextrose 508 ml @ 0 mls/hr Q0M PRN IV 02/03/17 05:18 03/05/17 05:17 Pantoprazole Sodium 40 mg/ Syringe 10 ml @ 5 mls/min DAILY IV 02/03/17 09:00 03/05/17 08:59 02/03/17 08:14 5 MLS/MIN Levalbuterol (Xopenex 1.25MG/ 0.5ML Neb) 1.25 mg Q6R INH 02/03/17 09:00 03/05/17 08:59 Ipratropium [place] (Atrovent 0.02% 0.5MG/2.5ML Neb) 0.5 mg Q6R INH 02/03/17 09:00 03/05/17 08:59 Vancomycin HCl (Consult) 1 ea DAILY PRN N/A 02/03/17 05:44 03/05/17 05:43 Piperacillin Sod/ Tazobactam Sod (Consult) 1 ea UD PRN N/A 02/03/17 06:00 03/05/17 05:59 Sucralfate (Carafate Tab) 1 gm QID PO 02/03/17 09:00 03/05/17 08:59 02/03/17 08:14 1 GM Buprenorphine/ Naloxone (Suboxone Tab) 2 ea DAILY SL 02/03/17 09:00 03/05/17 08:59 02/03/17 08:35 2 EA Glucose (Glucose 40% Gel) UD PRN PO 02/03/17 06:00 03/05/17 05:59 Glucose (Glucose Chew Tab) 1 tabs UD PRN PO 02/03/17 06:00 03/05/17 05:59 Dextrose (Dextrose 50% 50ML Syringe) 50 ml UD PRN IV 02/03/17 06:00 03/05/17 05:59 Glucagon (Glucagon Inj) 1 mg UD PRN SQ 02/03/17 06:00 03/05/17 05:59 Insulin Human Regular 250 units/ Sodium Chloride 252.5 ml @ 0 mls/hr DAILY@1130 IV 02/03/17 11:30 03/05/17 11:29 02/03/17 11:38 1.5 MLS/HR Piperacillin Sod/ Tazobactam Sod 3.375 gm/Dextrose 115 ml @ 28.75 mls/ hr Q8H IV 02/03/17 08:00 02/10/17 07:59 02/03/17 08:12 28.75 MLS/HR Filgrastim (Neupogen Sq) 300 mcg DAILY SQ 02/04/17 09:00 03/06/17 08:59 Vasopressin 50 units/Sodium Chloride 502.5 ml @ 24 mls/hr [id number] IV 02/03/17 10:30 03/05/17 10:29 02/03/17 10:28 24 MLS/HR Hydrocortisone Sodium Succinate 50 mg/Syringe 1 ml @ 4 mls/min Q6 IV 02/03/17 10:30 02/06/17 00:01 02/03/17 11:41 4 MLS/MIN Thiamine HCl 200 mg/Sodium Chloride 52 ml @ 208 mls/hr Q12H IV 02/03/17 11:00 02/07/17 10:59 02/03/17 11:41 208 MLS/HR Folic Acid (Folvite Tab) 1 mg QAM PO 02/04/17 09:00 03/06/17 08:59 Dextrose/Sodium Chloride 1,000 ml @ 125 mls/hr Q8H IV 02/03/17 10:01 03/05/17 10:00 02/03/17 10:28 125 MLS/HR Doxycycline Hyclate 100 mg/ Dextrose 110 ml @ 50 mls/hr Q12@1100,2300 IV 02/03/17 11:00 02/17/17 10:59 02/03/17 11:40 50 MLS/HR Ascorbic Acid 1500 mg/Sodium Chloride 103 ml @ 206 mls/hr Q6H IV 02/03/17 10:00 02/07/17 04:29 02/03/17 11:42 206 MLS/HR Review of Systems A complete 10-point Review of Systems was discussed with the patient, with pertinent positives and negatives listed in the History of Present Illness. All remaining Review of Systems questions can be considered negative unless otherwise specified. Physical Exam Date Time Temp Pulse Resp B/P (MAP) Pulse Ox O2 Delivery O2 Flow Rate FiO2 02/03/17 08:00 Oxymask 7.0 02/03/17 06:47 38.4 146 36 93/53 Nasal Cannula 3.0 02/03/17 06:02 143 22 92/43 93 Nasal Cannula 3.0 02/03/17 05:56 36.5 132 22 81/46 93 Nasal Cannula 3.0 02/03/17 05:35 134 22 88/49 93 Nasal Cannula 2.0 02/03/17 04:52 128 22 76/36 92 Nasal Cannula 2.0 02/03/17 04:00 37.4 02/03/17 03:47 130 22 80/44 97 Room Air 02/03/17 02:55 127 24 65/40 100 Room Air 02/03/17 02:45 99 Room Air 02/03/17 02:40 137 02/03/17 02:31 39.2 141 22 82/57 100 Room Air VITAL SIGNS - Vital signs and nursing notes were reviewed. GENERAL - 36-year-old male appearing his stated age who is in mild respiratory distress. Communicates well with provider and answers questions appropriately. HEAD - NC/AT. EYES - PERRL with EOMI bilaterally. Sclera icteric bilaterally. Palpebral moist with no injection noted. EARS - No deformities of external structures noted on gross examination bilaterally. No pain elicited with palpation of the tragus bilaterally. NOSE - Midline and without cyanosis. No epistaxis or purulent drainage noted. Septum midline without deviation or septal hematoma noted. MOUTH/OROPHARYNX - Without perioral cyanosis. Buccal mucosa pink and moist and without leukoplakia. No tonsillar hypertrophy, erythema, or exudates noted. Poor dentition noted. NECK - Neck with FROM. LUNGS - Chest wall symmetric with accessory muscle use. Normal vesicular breath sounds CTA B/L. No wheezes, rales, or rhonchi appreciated. CARDIAC - tachycardic/ No murmur, rubs, or gallops appreciated. No reproducible tenderness to palpation appreciated over the anterior chest wall. ABDOMEN - Abdominal contour flat and without pulsations or visible masses. BS normoactive all four quadrants. Mild TTP noted in the lower abdomen bilaterally. No palpable masses, hepatosplenomegaly, or ascites noted. EXTREMITIES - No clubbing or peripheral cyanosis. No pretibial edema present. +2 /5 radial and dorsalis pedis pulses palpated throughout. +5/5 strength noted in UE/LE bilaterally. NEUROLOGIC - Cranial nerves II through XII grossly intact. Sensory intact to light touch throughout. PSYCH - A&Ox3 and cooperates fully with examiner. Pt is very pleasant and interacts well with examiner. Laboratory Results Last 24 Hours Test 02/03/17 02:43 02/03/17 02:45 02/03/17 02:52 02/03/17 03:04 Bedside Glucose 380 mg/dl White Blood Count 0.57 K/uL Red Blood Count 4.13 M/uL Hemoglobin 14.3 g/dL Hematocrit 40.8 % Mean Corpuscular Volume 98.8 fL Mean Corpuscular Hemoglobin 34.6 pg Mean Corpuscular Hemoglobin Concent 35.0 g/dl Platelet Count 32 K/uL Mean Platelet Volume 12.8 fL Neutrophils (%) (Auto) 36.8 % Lymphocytes (%) (Auto) 54.4 % Monocytes (%) (Auto) 7.0 % Eosinophils (%) (Auto) 0.0 % Basophils (%) (Auto) 0.0 % Neutrophils # (Auto) 0.21 K/uL Lymphocytes # (Auto) 0.31 K/uL Monocytes # (Auto) 0.04 K/uL Eosinophils # (Auto) 0.00 K/uL Basophils # (Auto) 0.00 K/uL RDW Standard Deviation 43.0 fL RDW Coefficient of Variation 11.9 % Immature Granulocyte % (Auto) 1.8 % Immature Granulocyte # (Auto) 0.01 K/uL Toxic Vacuolation 2+ Platelet Estimate DECREASED Large Platelets 3+ Pappenheimer Bodies 1+ Peripheral Blood Smear Path Consult Prothrombin Time 14.6 SECONDS Prothromb Time International Ratio 1.3 Sodium Level 117 mmol/L Potassium Level 3.9 mmol/L Chloride Level 77 mmol/L Carbon Dioxide Level 21 mmol/L Anion Gap 19.0 mmol/L Blood Urea Nitrogen 29 mg/dl Creatinine 3.70 mg/dl Est Creatinine Clear Calc Drug Dose 28.2 ml/min Estimated GFR () 22.8 Estimated GFR (Non- 19.7 BUN/Creatinine Ratio 7.8 Random Glucose 353 mg/dl Osmolality 275 mOsm/kg Calcium Level 6.7 mg/dl Total Bilirubin 6.9 mg/dl Direct Bilirubin 5.4 mg/dl Aspartate Amino Transf (AST/SGOT) 220 U/L Alanine Aminotransferase (ALT/SGPT) 126 U/L Alkaline Phosphatase 82 U/L Total Protein 5.6 gm/dl Albumin 2.2 gm/dl Lipase 24 U/L Beta-Hydroxybutyric Acid 3.65 mg/dL Bedside Lactic Acid Venous 8.96 mmol/L Ethyl Alcohol mg/dL < 3.0 mg/dl Test 02/03/17 04:28 02/03/17 05:17 02/03/17 05:30 02/03/17 07:24 Venous Blood pH 7.36 7.36 Venous Blood Partial Pressure CO2 31 mmHg Venous Blood Partial Pressure O2 39 mmHg Venous Blood HCO3 17 mmol/L Venous Blood Oxygen Saturation 69.8 % Venous Blood Base Excess -7.2 mEq/L Ammonia 18.0 umol/L Bedside Glucose 300 mg/dl Urine Color DK YELLOW Urine Appearance CLOUDY Urine pH 5.0 Urine Specific [place] 1.027 Urine Protein 1+ Urine Glucose (UA) NEG Urine Ketones TRACE Urine Occult Blood TRACE Urine Nitrite POS Urine Bilirubin 1+ Urine Urobilinogen NEG Urine Leukocyte Esterase NEG Urine WBC (Auto) 5-10 /hpf Urine RBC (Auto) 5-10 /hpf Urine Hyaline Casts (Auto) >30 /lpf Urine Epithelial Cells (Auto) 20-30 /lpf Urine Bacteria (Auto) 1+ Urine Crystals CALCIUM OXALATE Urine Pathogenic Casts /lpf Urine Osmolality 310 mOms/kg Urine Random Sodium < 5 mEq/L Urine Opiates Screen POS Urine Methadone, Qualitative NEG Urine Barbiturates NEG Urine Phencyclidine (PCP) Level NEG Ur Amphetamine/Methamphetamine NEG MDMA (Ecstasy) Screen NEG Urine Benzodiazepines Screen NEG Urine Cocaine Metabolite NEG Urine Marijuana (THC) NEG Sodium Level 124 mmol/L Potassium Level 3.5 mmol/L Chloride Level 91 mmol/L Carbon Dioxide Level 16 mmol/L Anion Gap 17.0 mmol/L Blood Urea Nitrogen 30 mg/dl Creatinine 3.20 mg/dl Est Creatinine Clear Calc Drug Dose 32.6 ml/min Estimated GFR () 27.2 Estimated GFR (Non- 23.5 BUN/Creatinine Ratio 9.3 Random Glucose 199 mg/dl Lactic Acid Level 6.9 mmol/L Calcium Level 5.8 mg/dl Phosphorus Level 2.1 mg/dl Magnesium Level 0.4 mg/dl Test 02/03/17 07:35 02/03/17 07:52 02/03/17 09:18 02/03/17 10:17 Bedside Glucose (other) 184 mg/dl 305 mg/dl 136 mg/dl White Blood Count 0.56 K/uL Red Blood Count 3.59 M/uL Hemoglobin 12.0 g/dL Hematocrit 35.5 % Mean Corpuscular Volume 98.9 fL Mean Corpuscular Hemoglobin 33.4 pg Mean Corpuscular Hemoglobin Concent 33.8 g/dl Platelet Count 15 K/uL Mean Platelet Volume 12.6 fL RDW Standard Deviation 41.8 fL RDW Coefficient of Variation 11.6 % Neutrophils % (Manual) 13.1 % Lymphocytes % (Manual) 55.4 % Monocytes % (Manual) 6.6 % Metamyelocytes % 16.1 % Myelocytes % 8.8 % Neutrophils # (Manual) 0.07 K/uL Total Absolute Neutrophils 0.07 K/uL Lymphocytes # (Manual) 0.31 K/uL Total Absolute Lymphocytes 0.31 K/uL Monocytes # (Manual) 0.04 K/uL Metamyelocytes # 0.09 K/uL Myelocytes # 0.05 K/uL Toxic Vacuolation 3+ Giant Platelets 3+ [place] Bodies 2+ Test 02/03/17 10:47 02/03/17 10:53 02/03/17 12:00 02/03/17 12:01 Bedside Glucose (other) 134 mg/dl White Blood Count 0.69 K/uL Red Blood Count 3.77 M/uL Hemoglobin 12.7 g/dL Hematocrit 37.0 % Mean Corpuscular Volume 98.1 fL Mean Corpuscular Hemoglobin 33.7 pg Mean Corpuscular Hemoglobin Concent 34.3 g/dl Platelet Count 11 K/uL RDW Standard Deviation 41.7 fL RDW Coefficient of Variation 11.7 % Lactic Acid Level 4.1 mmol/L Lactate Dehydrogenase 310 U/L Vitamin B12 Level 1987 pg/mL Folate > 24.00 ng/mL Test 02/03/17 12:07 02/03/17 12:30 Bedside Glucose (other) 167 mg/dl Bedside Hemoglobin 13.3 g/dl Bedside Hematocrit 39 % Bedside Blood Gas pH (LAB) 7.26 Bedside Blood Gas pCO2 (LAB) 41 mmHg Bedside Blood Gas pO2 (LAB) < 32 mmHg Bedside Blood Gas HCO3 (LAB) 18 meq/L Bedside Blood Gas Total CO2 19 mEq/l Bedside Blood Gas Base Excess (LAB) -9.0 meq/L Bedside Blood Gas O2 Saturation 30.0 % Bedside Sodium 117 mEq/L Bedside Potassium 3.2 mEq/L Diagnostic Results Radiological imaging and reports were reviewed by myself. Radiologist's Interpretation as follows: CHEST ONE VIEW PORTABLE HISTORY: 36 years-old Male Evaluate Fever/Sepsis acute fever with sepsis and upper abdominal pain. COMPARISON: Abdomen and pelvis CT of same day, portable chest radiograph 02/09/2015. TECHNIQUE: Portable upright AP view of the chest FINDINGS: Segmental alveolar opacities are present within the basal left lower lobe with small left parapneumonic effusion. There is no pneumothorax. The right lung is clear. Cardiomediastinal and hilar silhouettes are within normal limits. Mild degenerative changes involve the shoulders. IMPRESSION: Segmental alveolar opacities of the left lower lobe with small amount of left pleural fluid suggests pneumonia with parapneumonic effusion. Follow-up imaging to document resolution is recommended. CT SCAN OF THE ABDOMEN AND PELVIS WITHOUT IV CONTRAST CLINICAL HISTORY: Generalized abdominal pain. Hypotension. COMPARISON STUDY: Abdominal CT dated scans dated 05/16/2016 and 07/24/2014. TECHNIQUE: CT scan of the abdomen and pelvis is performed from the lung bases to the proximal femora. Images are reviewed in the axial, sagittal, and coronal planes. IV contrast was not administered for this examination as per the referring clinician. Note that the examination was performed in suboptimal fashion without oral and IV contrast. Automated dose control exposure was utilized. CT DOSE: 335.73 mGy.cm FINDINGS: Lung bases: The heart is normal in size and without pericardial effusion. There is dense airspace consolidation in the left lower lobe and trace left pleural effusion. The right lung base appears clear. Liver: The unenhanced liver is enlarged, measuring 23.8 cm in length. The liver demonstrates diffusely diminished attenuation consistent with hepatic steatosis. Fatty sparing is seen adjacent to the gallbladder fossa. There is no intrahepatic biliary ductal dilatation. Gallbladder: Normal as visualized. Spleen: Normal in size and attenuation. Pancreas: The pancreas is atrophic. The pancreatic tail appears truncated, and there is a 1.4 cm fluid attenuation structure in adjacent pancreatic tail again seen on image #129. This has decreased in size from prior studies and likely represents a resolving pseudocyst. No additional peripancreatic fluid collections are identified. There is peripancreatic inflammation consistent with acute pancreatitis. Collateral vessels are again seen in the left upper quadrant. Adrenal glands: Mild nodularity of the left adrenal gland is similar to previous. Kidneys: The left kidney is slightly atrophic as compared to the right and demonstrates foci of cortical scarring. There is no hydronephrosis. No renal calculi are identified. Abdominal vasculature: The abdominal aorta is normal in course and caliber noting moderate and age advanced atherosclerotic calcification. Bowel: The small bowel and colon are normal in course and caliber. The appendix is well-visualized and normal. Peritoneum: There is no intraperitoneal free air or abdominal ascites. There is a small fat-containing umbilical hernia. Lymphadenopathy: Non-. Pelvic viscera: The bladder is decompressed and grossly unremarkable. The prostate and seminal vesicles are normal as visualized. There are small bilateral fat-containing inguinal hernias. Surgical clips are noted along the spermatic cord bilaterally. Skeletal structures: The skeletal structures are osteopenic. No lytic or blastic lesions are seen. IMPRESSION: 1. Suboptimal examination without oral and IV contrast. 2. Findings are consistent with left lower lobe pneumonia. Radiographic follow-up to resolution is recommended. 3. There are no acute infectious or inflammatory findings in the abdomen or pelvis. 4. Suspect a tiny resolving pseudocyst in the region of pancreatic tail. This has decreased in size from previous. 5. Hepatomegaly and severe hepatic steatosis. 6. Additional changes as above. GALLBLADDER-ABD LIMITED HISTORY: 36 years-old Male elevated lfts, bilirubin; r/o cholecystitis acute elevated liver function tests. Acute upper abdominal pain. COMPARISON: CT abdomen and pelvis of same day TECHNIQUE: Multiple real-time sonographic images of the abdominal right upper quadrant were obtained assessing grayscale appearance and color flow FINDINGS: Pancreas is obscured by bowel gas. Liver is mildly echogenic and heterogeneous compatible with fatty infiltration. The gallbladder is contracted with mildly thickened wall, 3.9 cm. No shadowing cholelithiasis or pericholecystic fluid collections. Sonographic Webster sign was reported as negative. The exam is limited secondary to patient condition and lack of breath-hold. No biliary ductal dilation. The common bile duct measures 2.0 mm. The imaged right kidney is unremarkable without hydronephrosis. IMPRESSION: 1. Contracted gallbladder without cholelithiasis or sonographic evidence of acute cholecystitis. 2. Fatty infiltration of the liver. 3. No biliary ductal dilation. Assessment & Plan Reason Critically Ill: 36-year-old male with septic shock secondary to LEFT lower lobe pneumonia with pancytopenia. Neuro - * CAM ICU: NEGATIVE * Alcohol Abuse: AWSS per protocol. * Will add thiamine and folate. * Depression: Hold Celexa. Cardiac - * Hypotension: * 2/2 Sepsis - Levophed. Will add Vasopressin. - Goal MAP >65. * Will add Solu-Cortef 50 mg q6h. * Tachycardia: * Likely 2/2 sepsis. Will monitor to responsiveness to improving pressures. Could be related to alcohol withdrawal, but would typically expect associated hypertension. * Continue to monitor on Telemetry. * H/O Hypertension: * Hold BP Rx in the setting of septic shock. Respiratory - * LEFT Lower Lobe Pneumonia (Likely Aspiration): * Pulmonary toilet. * Antibiotics: Zosyn, Vancomycin, Doxy. * Plan for bronchial washing. * Low threshold for intubation. * Patient intubated 2/2 worsening oxygenation and labor of breathing. 8.0 Fr ET tube at 26 to the lips. * Monitory ABGs/VBGs. * Will CT chest when airway stable. * Educated on smoking cessation. 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 GI does not suggest steroids, however, he will be receiving Solu-Cortef in the setting of septic shock. * Ultrasound/CT otherwise unremarkable. * History of C. diff - remote. * Stool cultures NEGATIVE. * GI Prophylaxis - Protonix. RENAL/LYTES - * Acute Kidney Injury w/ Cr of 3.7. * Initially aggressively resuscitated with 4L NSS. * Will switch to D5 1/2NSS in the setting of Hyponatremia (Na 117). * Continue to recheck lytes - replace appropriately. - * Bradshaw Catheter to [place]. * Strict I&Os ENDO - * H/O DM w/ elevated BSGs on admission - insulin gtt started. * Will continue to monitor BSGs per protocol. HEME - * Pancytopenia in the setting of septic shock. * ?2/2 EtOH use and subsequent bone marrow suppression vs. acute in the setting of infection. * Will provide platelets. * Peripheral blood smear. * Appreciate Heme/Onc consultation. * Received one dose of Neupogen. ID - * Septic Shock with LLL Pneumonia: * High probability of aspiration in nature. * Vanc, Zosyn and Doxy. * Will add Hydrocortisone, Vitamin C, and Thiamine per sepsis recommendations. LINES/IV ACCESS - * RIGHT Femoral CLV (ED Placement). * Bilateral UE peripheral lines. * LEFT Femoral line. * 8-0 ET tube. * Bradshaw Catheter. DVT PROPHYLAXIS - * Will hold chemical prophylaxis in the setting of thrombocytopenia. * SCDs in place. I have personally spent 45 minutes of critical care time in the direct management of this patient. This is a life/limb threatening event. This includes time spent evaluating patient, direct bedside care, chart review, placing orders, interpretation of diagnostic studies, discussion with consultants, patient, and family members, as well as other required patient management activities. This time is exclusive of all separately billable procedures, and teaching time and separate from and in addition to any other critical care service time. Thank you for this consultation allow us to be part of this patient's care. Please refer to my attending physician's documentation for any further recommendations.
[2017-02-03] MEDS ORDERED: ACETAMINOPHEN IV 1000MG/100ML IV ONE (15:30)
[2017-02-03] MEDS ORDERED: NURSING VERBAL MED ORDER ONE (15:30)
[2017-02-03 15:41] LABS: MEAN CELL VOLUME 99.4 fL (80-100); MEAN CORPUSCULAR HEMOGLOBIN 33.4 pg (25-34); MEAN CORPUSCULAR HGB CONC 33.6 g/dl (32-36); MEAN PLATELET VOLUME 10.3 fL (7.4-10.4); PLATELET COUNT 29 K/uL (130-400); RED BLOOD COUNT 3.62 M/uL (4.7-6.1); WHITE BLOOD COUNT 0.77 K/uL (4.8-10.8)
[2017-02-03 16:54] LABS: BUN/CREATININE RATIO 13.3 (10-20); CALCIUM 5.6 mg/dl (8.5-10.1); CREATININE 1.9 mg/dl (0.60-1.40); MAGNESIUM 1.7 mg/dl (1.8-2.4); PHOSPHORUS 4.7 mg/dl (2.5-4.9); POTASSIUM 3.8 mmol/L (3.5-5.1)
[2017-02-03 17:06] LABS: GIANT PLATELETS 2+; HOWELL-JOLLY BODIES 1+; HYPOSEGMENTED POLYS 3+; ROULEAUX 1+; TOXIC GRANULATION 3+; VACUOLIZATION 3+
[2017-02-03 17:09] LABS: PARTIAL THROMBOPLASTIN RATIO 2.2
[2017-02-03 17:10] LABS: EOSINOPHIL % 1.2 %; LYMPH ABS # 0.46 K/uL (1.2-3.4); META ABS # 0.11 K/uL (0-0); METAMYELOCYTE % 14.1 %
[2017-02-03] MEDS ORDERED: CALCIUM GLUCONATE 10% 1,000 MG in SODIUM CHLORIDE 0.9% 50ML 50 ML IV ONE ×2 (18:15→18:30)
[2017-02-03] MEDS ORDERED: MAGNESIUM SULFATE 1GM / D5W 1 GM in PREMIXED IN D5W 100 ML IV ONE ×2 (18:30→19:30)
[2017-02-03] MEDS ORDERED: PHYTONADIONE INJ 5 MG in SODIUM CHLORIDE 0.9% 50ML 50 ML IV ONE (18:30)
[2017-02-03 19:13] LABS: COMPLETE YES
--- NOTE | 2017-02-03 19:39 | Procedure Note ---
Procedure Note Procedure Date Feb 03, 2017. Procedure Description Procedure time out: side/site verified, patient ID confirmed Consent obtained: emergent consent implied Performed by: attending Indications: diagnostic, therapeutic Contraindications: none Description: Assistance with A line placement requested by ICU staff as multiple attempts had been made at multiple sites. Upper extremities were examined with ultrasound and found to be unsuitable due to probable spasm in radial/brachial artery. L femoral artery chosen as target. With sterile technique, L femoral artery was punctured under US guidance. Wire passed through some mild resistance by twisting gently 360 degrees. Long 20 arterial catheter placed by seldinger technique. Positive blood return through catheter and arterial tracing confirmed. ICU PA-C stitched line in place and dressed the site. Patient tolerated the procedure well, and further hemodynamic management per ICU team. Complications: none Patient tolerated procedure: well Post-procedure vital signs: other (managed by ICU team)
[2017-02-03 19:41] LABS: BUN/CREATININE RATIO 11.1 (10-20); CALCIUM 5.1 mg/dl (8.5-10.1); CREATININE 2.2 mg/dl (0.60-1.40); MAGNESIUM 1.9 mg/dl (1.8-2.4); PHOSPHORUS 6.5 mg/dl (2.5-4.9); POTASSIUM 3.9 mmol/L (3.5-5.1)
[2017-02-03 19:42] LABS: HEMATOCRIT 35.1 % (42-52); MEAN CELL VOLUME 101.7 fL (80-100); MEAN CORPUSCULAR HEMOGLOBIN 33.9 pg (25-34); MEAN CORPUSCULAR HGB CONC 33.3 g/dl (32-36); MEAN PLATELET VOLUME 11.1 fL (7.4-10.4); PLATELET COUNT 10 K/uL (130-400); RED BLOOD COUNT 3.45 M/uL (4.7-6.1); WHITE BLOOD COUNT 0.95 K/uL (4.8-10.8)
[2017-02-03] MEDS ORDERED: POTASSIUM CHLR 20 MEQ / WTR 20 MEQ in PREMIXED WATER 100 ML IV SCH (19:45)
--- NOTE | 2017-02-03 19:57 | Medical Consult ---
Consultation Date of Consultation: Feb 03, 2017. Attending Physician: Teresita Rudolph M.D. Reason for Consultation: Pancytopenia History of Present Illness 36 year old male with a history of alcoholism, pancreatitits, diabetes, hypertension, depression, smoker who presented with abdominal pain, diarrhea and productive cough, chills. He was found to have severe leukopenia with WBC as low as 0.37 and severe thrombocytopenia with platelet count as low as 11, 000. He has KAYLA with creatinine as high as 3.7 and abnormal LFTs, lactic acidosis and found to have pneumonia on CXR and CT scan, respiratory failure requiring intubation. He is receiving broad spectrum antibiotics with vancomycin, zosyn and levaquin and doxycycline and pressors and received neupogen. Smear shows severe leukopenia with absolute neutropenia with left shift and toxic granulation, myelos, meta and a promyelocyte, no blasts seen, severe thrombocytopenia no clumping or schistocytes, a single neutrophil with intracellular bacteria - see peripheral smear report by pathology Dr Wiggins as well. Patient's mother said she spoke to him on Tuesday and other than his right inguinal hernia discomfort she said he did not complain of anything else at that time. He had a CBC in December which showed a normal WBC but platelet count was in 80s. Past Medical/Surgical History PMH: Alcoholism, pancreatitis, diabetes, hypertension, depression, smoker, right inguinal hernia, anxiety PSH: Family History Cancer Diabetes mellitus Heart disease Hypertension Lung disease paternal grandfather had cancer - unknown type father has hypertension and heart disorder and is on blood thinner Social History Smoking Status: Current Some Day Smoker Drug Use: none Marital Status: single Allergies Coded Allergies: Iodinated Diagnostic Agents (Verified Allergy, Unknown, UNKNOWN, 02/03/17) NO KNOWN DRUG ALLERGIES (Unverified Allergy, Unknown, NONE, 01/14/17) Current Inpatient Medications Current Inpatient Medications Medications (Trade) Dose Ordered Sig/Elidia Route Start Time Stop Time Status Last Admin Dose Admin Norepinephrine Bitartrate 8 mg/ Dextrose 508 ml @ 0 mls/hr Q0M PRN IV 02/03/17 05:18 03/05/17 05:17 Pantoprazole Sodium 40 mg/ Syringe 10 ml @ 5 mls/min DAILY IV 02/03/17 09:00 03/05/17 08:59 02/03/17 08:14 5 MLS/MIN Levalbuterol (Xopenex 1.25MG/ 0.5ML Neb) 1.25 mg Q6R INH 02/03/17 09:00 03/05/17 08:59 Ipratropium [place] (Atrovent 0.02% 0.5MG/2.5ML Neb) 0.5 mg Q6R INH 02/03/17 09:00 03/05/17 08:59 Vancomycin HCl (Consult) 1 ea DAILY PRN N/A 02/03/17 05:44 03/05/17 05:43 Piperacillin Sod/ Tazobactam Sod (Consult) 1 ea UD PRN N/A 02/03/17 06:00 03/05/17 05:59 Sucralfate (Carafate Tab) 1 gm QID PO 02/03/17 09:00 03/05/17 08:59 02/03/17 08:14 1 GM Buprenorphine/ Naloxone (Suboxone Tab) 2 ea DAILY SL 02/03/17 09:00 03/05/17 08:59 02/03/17 08:35 2 EA Glucose (Glucose 40% Gel) UD PRN PO 02/03/17 06:00 03/05/17 05:59 Glucose (Glucose Chew Tab) 1 tabs UD PRN PO 02/03/17 06:00 03/05/17 05:59 Dextrose (Dextrose 50% 50ML Syringe) 50 ml UD PRN IV 02/03/17 06:00 03/05/17 05:59 Glucagon (Glucagon Inj) 1 mg UD PRN SQ 02/03/17 06:00 03/05/17 05:59 Insulin Human Regular 250 units/ Sodium Chloride 252.5 ml @ 0 mls/hr DAILY@1130 IV 02/03/17 11:30 03/05/17 11:29 02/03/17 11:38 1.5 MLS/HR Piperacillin Sod/ Tazobactam Sod 3.375 gm/Dextrose 115 ml @ 28.75 mls/ hr Q8H IV 02/03/17 08:00 02/10/17 07:59 02/03/17 16:34 28.75 MLS/HR Filgrastim (Neupogen Sq) 300 mcg DAILY SQ 02/04/17 09:00 03/06/17 08:59 Vasopressin 50 units/Sodium Chloride 502.5 ml @ 24 mls/hr [id number] IV 02/03/17 10:30 03/05/17 10:29 02/03/17 10:28 24 MLS/HR Hydrocortisone Sodium Succinate 50 mg/Syringe 1 ml @ 4 mls/min Q6 IV 02/03/17 10:30 02/06/17 00:01 02/03/17 15:09 4 MLS/MIN Thiamine HCl 200 mg/Sodium Chloride 52 ml @ 208 mls/hr Q12H IV 02/03/17 11:00 02/07/17 10:59 02/03/17 11:41 208 MLS/HR Folic Acid (Folvite Tab) 1 mg QAM PO 02/04/17 09:00 03/06/17 08:59 Dextrose/Sodium Chloride 1,000 ml @ 125 mls/hr Q8H IV 02/03/17 10:01 03/05/17 10:00 02/03/17 18:39 125 MLS/HR Doxycycline Hyclate 100 mg/ Dextrose 110 ml @ 50 mls/hr Q12@1100,2300 IV 02/03/17 11:00 02/17/17 10:59 02/03/17 11:40 50 MLS/HR Ascorbic Acid 1500 mg/Sodium Chloride 103 ml @ 206 mls/hr Q6H IV 02/03/17 10:00 02/07/17 04:29 02/03/17 16:34 206 MLS/HR Midazolam HCl 250 ml @ 0 mls/hr Q0M PRN IV 02/03/17 13:30 03/05/17 13:29 Magnesium Sulfate 1 gm/Prmx 100 ml @ 100 mls/hr TODAY@1830 ONCE IV 02/03/17 18:30 02/03/17 19:29 Phytonadione 5 mg/ Sodium Chloride 50.5 ml @ 101 mls/hr TODAY@1830 ONCE IV 02/03/17 18:30 02/03/17 18:59 Magnesium Sulfate 1 gm/Prmx 100 ml @ 100 mls/hr TODAY@1930 ONCE IV 02/03/17 19:30 02/03/17 20:29 Review of Systems Unable to obtain. Patient intubated Physical Exam Date Time Temp Pulse Resp B/P (MAP) Pulse Ox O2 Delivery O2 Flow Rate FiO2 02/03/17 17:36 127 152/87 (108) 02/03/17 16:25 100 02/03/17 16:00 Mechanical Ventilator 100 02/03/17 16:00 135 30 91 Mechanical Ventilator 100 02/03/17 14:00 38.9 135 32 92 Oxymask 15.0 02/03/17 13:57 37.0 132 32 91 02/03/17 13:41 37.9 133 23 45/39 91 02/03/17 13:13 100 02/03/17 12:59 30 129/87 (101) 92 Oxymask 15.0 02/03/17 12:54 134 134/110 (118) 02/03/17 12:52 133 148/98 (115) 02/03/17 12:42 135 99/57 (71) 02/03/17 12:00 Oxymask 15.0 02/03/17 11:49 140 124/57 (79) 86 Oxymask 15.0 02/03/17 11:47 141 136/131 (133) 88 Oxymask 15.0 02/03/17 11:17 141 99/82 (88) 88 Oxymask 15.0 02/03/17 11:02 134 113/60 (77) 88 Oxymask 15.0 02/03/17 10:46 139 90/66 (74) 02/03/17 10:33 138 90/62 (71) 02/03/17 10:16 148 93/57 (69) 15.0 02/03/17 10:03 143 72/62 (65) 15.0 02/03/17 10:00 140 86 15.0 02/03/17 08:46 144 96/66 (76) 86 Oxymask 15.0 02/03/17 08:33 146 94/59 (71) 89 Oxymask 7.0 02/03/17 08:16 142 98/70 (79) 89 Oxymask 7.0 02/03/17 08:00 Oxymask 7.0 02/03/17 08:00 38.4 141 71/41 (51) 92 Oxymask 7.0 02/03/17 06:47 38.4 146 36 93/53 Nasal Cannula 3.0 02/03/17 06:02 143 22 92/43 93 Nasal Cannula 3.0 02/03/17 05:56 36.5 132 22 81/46 93 Nasal Cannula 3.0 02/03/17 05:35 134 22 88/49 93 Nasal Cannula 2.0 02/03/17 04:52 128 22 76/36 92 Nasal Cannula 2.0 02/03/17 04:00 37.4 02/03/17 03:47 130 22 80/44 97 Room Air 02/03/17 02:55 127 24 65/40 100 Room Air 02/03/17 02:45 99 Room Air 02/03/17 02:40 137 02/03/17 02:31 39.2 141 22 82/57 100 Room Air General Appearance: + pertinent finding (ill appearing male, intubated and sedated) Head: normocephalic, atraumatic ENT: + pertinent finding (patient intubated) Neck: no adenopathy Respiratory/Chest: + rhonchi (coarse BS bilaterally) Cardiovascular: regular rate, rhythm, no edema Abdomen/GI: non tender, soft, no organomegaly Neurologic/Psych: + pertinent finding Skin: warm/dry, + pertinent finding (+srinath) Laboratory Results Last 24 Hours Test 02/03/17 02:43 02/03/17 02:45 02/03/17 02:52 02/03/17 03:04 Bedside Glucose 380 mg/dl White Blood Count 0.57 K/uL Red Blood Count 4.13 M/uL Hemoglobin 14.3 g/dL Hematocrit 40.8 % Mean Corpuscular Volume 98.8 fL Mean Corpuscular Hemoglobin 34.6 pg Mean Corpuscular Hemoglobin Concent 35.0 g/dl Platelet Count 32 K/uL Mean Platelet Volume 12.8 fL Neutrophils (%) (Auto) 36.8 % Lymphocytes (%) (Auto) 54.4 % Monocytes (%) (Auto) 7.0 % Eosinophils (%) (Auto) 0.0 % Basophils (%) (Auto) 0.0 % Neutrophils # (Auto) 0.21 K/uL Lymphocytes # (Auto) 0.31 K/uL Monocytes # (Auto) 0.04 K/uL Eosinophils # (Auto) 0.00 K/uL Basophils # (Auto) 0.00 K/uL RDW Standard Deviation 43.0 fL RDW Coefficient of Variation 11.9 % Immature Granulocyte % (Auto) 1.8 % Immature Granulocyte # (Auto) 0.01 K/uL Toxic Vacuolation 2+ Platelet Estimate DECREASED Large Platelets 3+ Pappenheimer Bodies 1+ Peripheral Blood Smear Path Consult Prothrombin Time 14.6 SECONDS Prothromb Time International Ratio 1.3 Sodium Level 117 mmol/L Potassium Level 3.9 mmol/L Chloride Level 77 mmol/L Carbon Dioxide Level 21 mmol/L Anion Gap 19.0 mmol/L Blood Urea Nitrogen 29 mg/dl Creatinine 3.70 mg/dl Est Creatinine Clear Calc Drug Dose 28.2 ml/min Estimated GFR () 22.8 Estimated GFR (Non- 19.7 BUN/Creatinine Ratio 7.8 Random Glucose 353 mg/dl Osmolality 275 mOsm/kg Calcium Level 6.7 mg/dl Total Bilirubin 6.9 mg/dl Direct Bilirubin 5.4 mg/dl Aspartate Amino Transf (AST/SGOT) 220 U/L Alanine Aminotransferase (ALT/SGPT) 126 U/L Alkaline Phosphatase 82 U/L Total Protein 5.6 gm/dl Albumin 2.2 gm/dl Lipase 24 U/L Beta-Hydroxybutyric Acid 3.65 mg/dL Bedside Lactic Acid Venous 8.96 mmol/L Ethyl Alcohol mg/dL < 3.0 mg/dl Test 02/03/17 04:28 02/03/17 05:17 02/03/17 05:30 02/03/17 07:24 Venous Blood pH 7.36 7.36 Venous Blood Partial Pressure CO2 31 mmHg Venous Blood Partial Pressure O2 39 mmHg Venous Blood HCO3 17 mmol/L Venous Blood Oxygen Saturation 69.8 % Venous Blood Base Excess -7.2 mEq/L Ammonia 18.0 umol/L Bedside Glucose 300 mg/dl Urine Color DK YELLOW Urine Appearance CLOUDY Urine pH 5.0 Urine Specific [place] 1.027 Urine Protein 1+ Urine Glucose (UA) NEG Urine Ketones TRACE Urine Occult Blood TRACE Urine Nitrite POS Urine Bilirubin 1+ Urine Urobilinogen NEG Urine Leukocyte Esterase NEG Urine WBC (Auto) 5-10 /hpf Urine RBC (Auto) 5-10 /hpf Urine Hyaline Casts (Auto) >30 /lpf Urine Epithelial Cells (Auto) 20-30 /lpf Urine Bacteria (Auto) 1+ Urine Crystals CALCIUM OXALATE Urine Pathogenic Casts /lpf Urine Osmolality 310 mOms/kg Urine Random Sodium < 5 mEq/L Urine Opiates Screen POS Urine Methadone, Qualitative NEG Urine Barbiturates NEG Urine Phencyclidine (PCP) Level NEG Ur Amphetamine/Methamphetamine NEG MDMA (Ecstasy) Screen NEG Urine Benzodiazepines Screen NEG Urine Cocaine Metabolite NEG Urine Marijuana (THC) NEG Sodium Level 124 mmol/L Potassium Level 3.5 mmol/L Chloride Level 91 mmol/L Carbon Dioxide Level 16 mmol/L Anion Gap 17.0 mmol/L Blood Urea Nitrogen 30 mg/dl Creatinine 3.20 mg/dl Est Creatinine Clear Calc Drug Dose 32.6 ml/min Estimated GFR () 27.2 Estimated GFR (Non- 23.5 BUN/Creatinine Ratio 9.3 Random Glucose 199 mg/dl Lactic Acid Level 6.9 mmol/L Calcium Level 5.8 mg/dl Phosphorus Level 2.1 mg/dl Magnesium Level 0.4 mg/dl Test 02/03/17 07:35 02/03/17 07:52 02/03/17 09:18 02/03/17 10:17 Bedside Glucose (other) 184 mg/dl 305 mg/dl 136 mg/dl White Blood Count 0.56 K/uL Red Blood Count 3.59 M/uL Hemoglobin 12.0 g/dL Hematocrit 35.5 % Mean Corpuscular Volume 98.9 fL Mean Corpuscular Hemoglobin 33.4 pg Mean Corpuscular Hemoglobin Concent 33.8 g/dl Platelet Count 15 K/uL Mean Platelet Volume 12.6 fL RDW Standard Deviation 41.8 fL RDW Coefficient of Variation 11.6 % Neutrophils % (Manual) 13.1 % Lymphocytes % (Manual) 55.4 % Monocytes % (Manual) 6.6 % Metamyelocytes % 16.1 % Myelocytes % 8.8 % Neutrophils # (Manual) 0.07 K/uL Total Absolute Neutrophils 0.07 K/uL Lymphocytes # (Manual) 0.31 K/uL Total Absolute Lymphocytes 0.31 K/uL Monocytes # (Manual) 0.04 K/uL Metamyelocytes # 0.09 K/uL Myelocytes # 0.05 K/uL Toxic Vacuolation 3+ Giant Platelets 3+ Valdez-Kaka Bodies 2+ Test 02/03/17 10:47 02/03/17 12:01 02/03/17 12:07 02/03/17 12:30 Bedside Glucose (other) 134 mg/dl 167 mg/dl White Blood Count 0.69 K/uL Red Blood Count 3.77 M/uL Hemoglobin 12.7 g/dL Hematocrit 37.0 % Mean Corpuscular Volume 98.1 fL Mean Corpuscular Hemoglobin 33.7 pg Mean Corpuscular Hemoglobin Concent 34.3 g/dl Platelet Count 11 K/uL RDW Standard Deviation 41.7 fL RDW Coefficient of Variation 11.7 % Neutrophils % (Manual) 23.1 % Lymphocytes % (Manual) 51.8 % Monocytes % (Manual) 7.0 % Eosinophils % (Manual) 0.5 % Metamyelocytes % 15.1 % Myelocytes % 2.5 % Neutrophils # (Manual) 0.16 K/uL Total Absolute Neutrophils 0.16 K/uL Lymphocytes # (Manual) 0.36 K/uL Total Absolute Lymphocytes 0.36 K/uL Monocytes # (Manual) 0.05 K/uL Eosinophils # (Manual) 0.00 K/uL Metamyelocytes # 0.10 K/uL Myelocytes # 0.02 K/uL Toxic Granulation 2+ Toxic Vacuolation 2+ Giant Platelets 3+ Valdez-Kaka Bodies 2+ Activated Partial Thromboplast Time 59.7 SECONDS Partial Thromboplastin Ratio 2.3 Fibrin Degradation Products 10-40 mcg/ml D-Dimer 2490 ug/L FEU Sodium Level 122 mmol/L Potassium Level 3.5 mmol/L Chloride Level 90 mmol/L Carbon Dioxide Level 19 mmol/L Anion Gap 13.0 mmol/L Blood Urea Nitrogen 27 mg/dl Creatinine 2.40 mg/dl Est Creatinine Clear Calc Drug Dose 43.5 ml/min Estimated GFR () 38.5 Estimated GFR (Non- 33.2 BUN/Creatinine Ratio 11.1 Random Glucose 177 mg/dl Lactic Acid Level 4.1 mmol/L Uric Acid 5.0 mg/dl Calcium Level 5.8 mg/dl Phosphorus Level 2.4 mg/dl Magnesium Level 1.4 mg/dl Lactate Dehydrogenase 310 U/L Vitamin B12 Level 1987 pg/mL Folate > 24.00 ng/mL Lyme Disease IgG Antibody NEG Lyme Disease IgM Antibody NEG Hepatitis B Surface Antigen NEG Hepatitis C Antibody NEG HIV (1&2) Ab and P24 Ag, 4th Gener NEG Bedside Hemoglobin 13.3 g/dl Bedside Hematocrit 39 % Bedside Blood Gas pH (LAB) 7.26 Bedside Blood Gas pCO2 (LAB) 41 mmHg Bedside Blood Gas pO2 (LAB) < 32 mmHg Bedside Blood Gas HCO3 (LAB) 18 meq/L Bedside Blood Gas Total CO2 19 mEq/l Bedside Blood Gas Base Excess (LAB) -9.0 meq/L Bedside Blood Gas O2 Saturation 30.0 % Bedside Sodium 117 mEq/L Bedside Potassium 3.2 mEq/L Test 02/03/17 14:51 02/03/17 16:23 02/03/17 18:36 White Blood Count 0.77 K/uL Red Blood Count 3.62 M/uL Hemoglobin 12.1 g/dL Hematocrit 36.0 % Mean Corpuscular Volume 99.4 fL Mean Corpuscular Hemoglobin 33.4 pg Mean Corpuscular Hemoglobin Concent 33.6 g/dl Platelet Count 29 K/uL Mean Platelet Volume 10.3 fL RDW Standard Deviation 42.6 fL RDW Coefficient of Variation 11.6 % Neutrophils % (Manual) 20.0 % Lymphocytes % (Manual) 60.0 % Monocytes % (Manual) 3.5 % Eosinophils % (Manual) 1.2 % Metamyelocytes % 14.1 % Promyelocytes % 1.2 % Neutrophils # (Manual) 0.15 K/uL Total Absolute Neutrophils 0.15 K/uL Lymphocytes # (Manual) 0.46 K/uL Total Absolute Lymphocytes 0.46 K/uL Monocytes # (Manual) 0.03 K/uL Eosinophils # (Manual) 0.01 K/uL Metamyelocytes # 0.11 K/uL Promyelocytes # 0.01 K/uL Hyposegmented Neutrophils 3+ Blood Smear Review Toxic Granulation 3+ Toxic Vacuolation 3+ Giant Platelets 2+ Immature Platelet Fraction 9.8 % Valdez-Kaka Bodies 1+ Rouleau 1+ Absolute Reticulocyte Count 0.03 10^6/uL Percent Reticulocyte Count 0.7 % Activated Partial Thromboplast Time 56.7 SECONDS Partial Thromboplastin Ratio 2.2 Venous Blood pH 7.16 Sodium Level 122 mmol/L Potassium Level 3.8 mmol/L Chloride Level 90 mmol/L Carbon Dioxide Level 19 mmol/L Anion Gap 13.0 mmol/L Blood Urea Nitrogen 25 mg/dl Creatinine 1.90 mg/dl Est Creatinine Clear Calc Drug Dose 55.0 ml/min Estimated GFR () 51.1 Estimated GFR (Non- 44.1 BUN/Creatinine Ratio 13.3 Random Glucose 235 mg/dl Lactic Acid Level 3.9 mmol/L Calcium Level 5.6 mg/dl Phosphorus Level 4.7 mg/dl Magnesium Level 1.7 mg/dl CT scan abdomen/pelvis: IMPRESSION: 1. Suboptimal examination without oral and IV contrast. 2. Findings are consistent with left lower lobe pneumonia. Radiographic follow-up to resolution is recommended. 3. There are no acute infectious or inflammatory findings in the abdomen or pelvis. US IMPRESSION: 1. Contracted gallbladder without cholelithiasis or sonographic evidence of acute cholecystitis. 2. Fatty infiltration of the liver. 3. No biliary ductal dilation. Assessment & Plan 36 year old male admitted with septic shock, pneumonia with severe neutropenia with left shift and thrombocytopenia, abnormal LFTs, KAYLA and respiratory failure on mechanical ventilation Differential include platelet consumption/marrow suppression from overwhelming sepsis or underlying hematopoietic neoplasm which cannot be excluded Patient remains in critical condition. He received neupogen today. fibrinogen is pending. He has elevated PTT and mildly prolonged PT/INR, D dimer is elevated but no schistocytes/ Recommend monitor PT/PTT fibrinogen. Recommend Transfuse irradiated platelets as needed if bleeding or if platelets<20 or cryo if fibrinogen <100. I discussed with Dr Rudolph today and recommended labs including the B12 folate retic count LDH coags immature platelet fraction, fibrinogen, D dimer and FSP. I spoke to the ICU attending Dr Borges and discussed with Dr Rudolph and recommended consider transfer to a tertiary center for further workup as patient has multiorgan failure and severe sepsis. Flow cytometry is pending and is send out test. I discussed with the patient's parents that he would need a bone marrow aspirate and biopsy for further evaluation of the severe cytopenias as well if this persists. Agree with ICU care and BS antibiotics. Thank you for allowing us to participate in the care of this patient
[2017-02-03] MEDS ORDERED: [UNRECOGNIZED DRUG - CODE] SQ (20:20)
[2017-02-03] MEDS ORDERED: Piperacill/Tazobac Consult (20:20)
[2017-02-03] MEDS ORDERED: ATRINS INH (20:20)
[2017-02-03] MEDS ORDERED: Vancomycin Consult Active (20:20)
[2017-02-03] MEDS ORDERED: XPNINS1255 INH (20:20)
--- NOTE | 2017-02-03 20:23 | Discharge Instructions ---
Discharge Instructions Date of Service Feb 03, 2017. Admission Reason for Admission: Septic Shock Discharge Discharge Diagnosis / Problem: SEPTIC SHOCK Discharge Goals Goal(s): Diagnostic testing, Therapeutic intervention Activity Recommendations Activity Level: Bedrest . Additional Information Patient informed of condition: No (PATIENT INTUBATED) Advance Directives: No (UNKNOWN) DNR: No Level of Care: Other ([facility]) Communicable Disease: No Prognosis: Other (GUARDED) Instructions / Follow-Up Instructions / Follow-Up PLEASE REFER TO DISCHARGE SUMMARY FOR FURTHER DETAILS. Current Hospital Diet Patient's current hospital diet: Discharge Diet Recommended Diet: N/A (PATIENT INTUBATED) Procedures Procedures Performed: MECHANICAL VENTILATION, FEMORAL CATHETER INSERTION, IJ CATH INSERTION, ELLEN PLACEMENT, PLATELET TRANSFUSION Pending Studies Studies pending at discharge: yes List of pending studies: PLEASE REFER TO DISCHARGE SUMMARY. Medical Emergencies . Who to Call and When: Medical Emergencies: If at any time you feel your situation is an emergency, please call 911 immediately. . Non-Emergent Contact Non-Emergency issues call your: Primary Care Provider . Past History Medical & Surgical History: (1) Anxiety disorder (2) Alcoholic hepatitis (3) Hyperlipidemia (4) Depressive disorder (5) Chronic alcoholic pancreatitis (6) Hepatorenal syndrome (7) DKA (diabetic ketoacidoses) (8) Hyperglycemia (9) Hyponatremia (10) Renal failure (11) Lactic acid acidosis (12) Transaminitis (13) Left lower lobe pneumonia (14) Neutropenic fever (15) Septic shock (16) Hypertension (17) Pancreatitis (18) DM type 2 (diabetes mellitus, type 2) (19) Tobacco abuse (20) History of alcohol abuse (21) Depression (22) History of Clostridium difficile (23) Diabetes mellitus with hyperglycemia (24) Hypomagnesemia (25) Pancreatitis (26) SOB (shortness of breath) (27) S/P vasectomy . "Provider Documentation" section prepared by Gian Hill. . Core Measure Problem Core Measures: None
--- NOTE | 2017-02-03 20:27 | DIAGNOSTIC IMAGING REPORT ---
CHEST ONE VIEW PORTABLE HISTORY: pneumoia/intubation COMPARISON: Abdomen and pelvis CT 02/03/2017. Chest 02/03/2017. FINDINGS: No pneumothorax. Endotracheal tube tip is suboptimally visualized due to the motion artifact but appears to terminate approximately 5.4 cm from the isael. The heart is normal in size. The right lung is clear. Left mid to lower lung zone consolidative opacity has progressed. IMPRESSION: 1. The endotracheal tube appears to terminate approximately 5.4 cm from the isael. 2. Left mid to lower lung zone consolidation has progressed. This likely represents a combination of the suspected pneumonia and pleural effusion. Recommend follow-up to ensure complete resolution. Electronically signed by: William Light M.D. 02/03/2017 8:26 PM Dictated Date/Time: 02/03/2017 8:23 PM
--- NOTE | 2017-02-03 20:30 | Discharge Summary ---
Discharge Summary Date of Service Feb 03, 2017. Discharge Summary Admission Date: Feb 03, 2017 at 05:18 Discharge Date: Feb 03, 2017 Discharge Disposition: Acute care facility Principal Diagnosis: SEVERE SEPSIS WITH SEPTIC SHOCK Secondary Diagnoses/Problems: PLEASE REFER TO HOSPITAL COURSE BELOW. Procedures: MECHANICAL VENTILATION, FEMORAL LINE PLACEMENT, IJ CATH PLACEMENT, A LINE PLACEMENT, PLATELETPHARESIS Consultations: LINING IRONER, INFECTIOUS DISEASE, GASTROENTEROLOGY, HEMATOLOGY Pending Studies/Follow-Up: Please refer to hospital course below. Medication Reconciliation New Medications: Filgrastim (Neupogen) 300 Mcg/Ml Inj 300 MCG SQ DAILY for 3 Days Ipratropium [place] (Ipratropium Nottingham) 0.5 Mg/2.5 Ml Nebu 0.5 MG INH Q6R for 7 Days Levalbuterol (Levalbuterol) 1.25 Mg/0.5 Ml Nebu 1.25 MG INH Q6R for 7 Days [Piperacill/Tazobac Consult] () 1 EA MISC 1 EA N/A UD PRN for Consult [Vancomycin Consult Active] () 1 EA MISC 1 EA N/A DAILY PRN for Consult Continued Medications: Buprenorphine Hcl-Naloxone Hcl (Suboxone 8-2 Mg) 1 Sub Sub 2-2.5 TAB SL DAILY PT TO CHECK WITH SURGEON FOR DIRECTIONS AT ADVICE OF RX'ING AT [facility] Citalopram Hydrobromide (Celexa) 40 Mg Tab 40 MG PO QAM, TAB Discontinued Medications: Amlodipine (Norvasc) 10 Mg Tab 10 MG PO QAM, TAB Atorvastatin (Lipitor) 20 Mg Tab 20 MG PO QAM, TAB Gabapentin (Neurontin) 300 Mg Cap 300 MG PO TID, CAP Glipizide (Glipizide Er) 5 Mg Tab 1 TAB PO QAM for 90 Days, #90 TAB 3 Refills Hydrochlorothiazide (Hctz) 25 Mg Tab 25 MG PO QAM, TAB Insulin Glargine (Lantus Solostar) 100 Unit/Ml Inj 10-32 UNITS SC DAILY, PEN CHECKS BLOOD SUGARS SEVERAL TIMES A DAY-SLIDING SCALE Lisinopril (Lisinopril) 40 Mg Tab 40 MG PO QAM Metformin Hcl (Glucophage) 1,000 Mg Tab 1 TAB PO BID, TAB Omeprazole (Prilosec) 20 Mg Capcr 40 MG PO QAM Pot Phosphate Monobasic W/ Sod (Phospha 250 Neutral) 1 Tab Tab 1 TAB PO QID Ranitidine Hcl (Zantac) 300 Mg Tab 300 MG PO HS, TAB Sucralfate (Carafate) 1 Gm Tab 1 GM PO QID, TAB Trazodone Hcl (Trazodone) 50 Mg Tab 50 MG PO HS PRN for PRN Admission Information HPI (per Admitting provider): 36 year old male with history of Alcoholism, Chronic Pancreatitis, DM, HTN, Depression, Smoker, and other problems noted below presenting with abdominal pain x few days. Follows with Dr. Mccain for Primary Care. Patient states that he was at his usual state of health until about 5 days when he started to have central abdominal pain, associated with some diarrhea, nausea and vomiting. He states he is not able to keep anything down and has been having mostly fluids only. Also states that he has been having productive cough and some chills, but denies shortness of breath. Patient then presented to the ER. Upon arrival, patient was hypotensive, febrile, tachycardic. He is leukopenic WBC 0.37 and thrombocytopenic Plt 32, crea 3.7, lactic acid 8.9 , (+) direct bilirubin and AST/ALT elevation. CXR and CT abdomen/pelvis showing Left Lower Lobe consolidation. He was given at least 3L of IV NSS boluses and started on Vanc/Zosyn/Levaquin. On my exam, patient was in his 4th liter of fluids, and started on Levophed. He is laying in bed, not in distress, appears somewhat anxious but pleasant, oriented x 3, answers questions appropriately. States he feels slightly better. Main complaint is generalized abdominal discomfort, worse with movement. Denies right inguinal hernia pain. Denies shortness of breath, chest pain, dizziness, nausea. No other symptoms Last drink was Tuesday. Reports vivid dreams but denies hallucinations, tremors. Physical Exam (per Admitting): General Appearance: WD/WN, no apparent distress Head: normocephalic, atraumatic Eyes: normal inspection, + pertinent finding ((+) mild icterus) ENT: normal ENT inspection, hearing grossly normal, + pertinent finding ((+ ) oral thrush) Neck: supple, no adenopathy, thyroid normal, no JVD, trachea midline Respiratory/Chest: chest non-tender, lungs clear, normal breath sounds, no respiratory distress Cardiovascular: no edema, no JVD, + tachycardia Abdomen/GI: normal bowel sounds, + hernia (right inguinal hernia), + pertinent finding (mild-moderate tenderness on all quadrants but soft, no guarding) Back: normal inspection, no CVA tenderness Extremities/Musculoskelatal: normal inspection, no calf tenderness, no pedal edema, non-tender Neurologic/Psych: 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, no motor/sensory deficits, alert , normal mood/affect, oriented x 3 Skin: normal color, warm/dry, no rash Lymphatic: no adenopathy Hospital Course 36 year old male with history of Alcoholism, Chronic Pancreatitis, DM, HTN, Depression, Smoker, presented with severe sepsis /possible source of infection left lower lobe pneumonia SEVERE SEPSIS WITH SEPTIC SHOCK - likely from left lower lobe pneumonia, with effusion Presented with hypotension , tachycardia , severe neutropenia , KAYLA , abnormal LFT, elevated lactic acid admitted to ICU - received 4 liters NSS boluses ; cont IVF fluid resuscitation at 125cc/hr requiring pressors started on Levophed , added Vasopressin started on stress dose of IV Hydrocortisone houser culture -blood /urine /sputum culture ordered ID eval requested pt is on empiric Abx with Vancomycin /Zosyn /Levaquin -Doxycycline ordered for additional coverage for atypicals and anaplasmosis ACUTE HYPOXEMIC RESPIRATORY FAILURE due to left lower lobe pneumonia concern for aspiration -hx of alcoholism /possible aspiration while intoxicated pt continues to cough profuse amount of yellow /brown sputum sputum specimen ordered for C&S requiring high supplemental 02 -12 L on face mask --> then required mechanical ventilation CT chest pending SEVERE NEUTROPENIA, THROMBOCYTOPENIA WBC 0.56 with ANC 0.07 HB 12 Plt 11 - secondary to Sepsis, Alcoholism ? ordered for Neupogen s/p Plateletpharesis - neutropenic precautions -last blood work : CBC was wnl Peripheral smear -shows no blasts , severe neutropenia , thrombocytopenia ; intracellular cocci in WBC -Hematology consulted HYPONATREMIA - due to sepsis /dehydration started on IV NSS , NA improved 117 -125 IVF changed to D5W NSS to prevent rapid correction monitor PRP q4hr pt was on HCTZ at home -discontinued ACUTE RENAL FAILURE Cr elevated > 3 - likely pre renal, related to Sepsis cont IVF fluid , pressures to keep MAP ~65 follow lytes closely home diuretics -lisinopril /HCTZ discontinued DM 2 -presented with hyperglycemia due to sepsis started on IV insulin gtt - home medications Lantus, Glipizide, Metformin: on hold for now pharm consulted for glycemic control ELEVATED LACTIC ACID due to severe sepsis , hypotension -leading to poor tissue perfusion cont IVF , pressures to keep MAP ~ 65 monitor Lactic acid q4h ABNORMAL LFT S' DIRECT BILIRUBINEMIA TRANSAMINITIS - - GB US -shows not evidence of cholangitis or gall bladder disease CT abdomen /pelvis -hepatic steatosis , no intra abdominal pathology acute on chronic alcoholic hepatitis worsening on setting of septic shock - GI consulted follow LFT's close hepatitis panel ordered -prelim results -negative CHRONIC SUBOXONE USE - Suboxone ordered DEPRESSION DC Celexa in setting of severe sepsis /abnormal transaminase ALCOHOLISM - mentions last drink Tuesday - no signs of DTs/Withdrawal - will hold Gabapentin protocol -transaminitis /severe sepsis -PRN IV Ativan for symptom of anxiety /tremors ( pt does not have any symptoms now ) monitor closely RIGHT INGUINAL HERNIA CT abdomen /pelvis -no evidence of incarcerated rt inguinal hernia - scheduled for repair by Dr. Segura on 02/07 FULL CODE PER PATIENT DVT PROPHYLAXIS SCD and teds ( severe thrombocytopenia ; Platelet count 15K) DISPOSITION to be determined remains critically ill in ICU requiring pressors Total time spent on discharge = 40 minutes This includes examination of the patient, discharge planning, medication reconciliation, and communication with other providers. Discharge Instructions Discharge Instructions Date of Service Feb 03, 2017. Admission Reason for Admission: Septic Shock Discharge Discharge Diagnosis / Problem: SEPTIC SHOCK Discharge Goals Goal(s): Diagnostic testing, Therapeutic intervention Activity Recommendations Activity Level: Bedrest . Additional Information Patient informed of condition: No (PATIENT INTUBATED) Advance Directives: No (UNKNOWN) DNR: No Level of Care: Other ([facility]) Communicable Disease: No Prognosis: Other (GUARDED) Instructions / Follow-Up Instructions / Follow-Up PLEASE REFER TO DISCHARGE SUMMARY FOR FURTHER DETAILS. Current Hospital Diet Patient's current hospital diet: Discharge Diet Recommended Diet: N/A (PATIENT INTUBATED) Procedures Procedures Performed: MECHANICAL VENTILATION, FEMORAL CATHETER INSERTION, IJ CATH INSERTION, ELLEN PLACEMENT, PLATELET TRANSFUSION Pending Studies Studies pending at discharge: yes List of pending studies: PLEASE REFER TO DISCHARGE SUMMARY. Medical Emergencies . Who to Call and When: Medical Emergencies: If at any time you feel your situation is an emergency, please call 911 immediately. . Non-Emergent Contact Non-Emergency issues call your: Primary Care Provider . Past History Medical & Surgical History: (1) Anxiety disorder (2) Alcoholic hepatitis (3) Hyperlipidemia (4) Depressive disorder (5) Chronic alcoholic pancreatitis (6) Hepatorenal syndrome (7) DKA (diabetic ketoacidoses) (8) Hyperglycemia (9) Hyponatremia (10) Renal failure (11) Lactic acid acidosis (12) Transaminitis (13) Left lower lobe pneumonia (14) Neutropenic fever (15) Septic shock (16) Hypertension (17) Pancreatitis (18) DM type 2 (diabetes mellitus, type 2) (19) Tobacco abuse (20) History of alcohol abuse (21) Depression (22) History of Clostridium difficile (23) Diabetes mellitus with hyperglycemia (24) Hypomagnesemia (25) Pancreatitis (26) SOB (shortness of breath) (27) S/P vasectomy . "Provider Documentation" section prepared by Gian Hill. . Core Measure Problem Core Measures: None
--- NOTE | 2017-02-03 20:48 | Procedure Note ---
Procedure Note Procedure Date Feb 03, 2017. Procedure Description Procedure Name: Endotracheal Intubation Procedure time out: patient ID confirmed, correct procedure Consent obtained: written Performed by: physician padding gluer Indications: diagnostic, therapeutic Contraindications: none Description: APC: Demetrius Costello PA-C. Attending: Dr. Cait Tan time-out was completed verifying correct patient, procedure, site, positioning. Patient was evaluated and required intubation for respiratory distress, hypoxia , pneumonia. Sedative agent used: Diprivan Paralysis agent used: None The patient was prepared in the appropriate fashion. An 8-0 Czech endotracheal tube was placed using GlideScope to 26 cm at the lip. Just prior to balloon inflation, the patient coughed/vomited orange-colored material (seen previously as sputum). The area was suctioned and the balloon was inflated with 10mL of air. Bilateral breath sounds were heard without air sounds in the abdomen. Appropriate Colorimetric change appreciate. Patient tolerated the procedure well and there were no complications. Post Intubation Chest X-ray pending. Complications: none Patient tolerated procedure: well Post-procedure vital signs: reviewed and stable
[2017-02-03] MEDS ORDERED: RANITIDINE HCL 150 MG TAB PO SCH (21:00)
[2017-02-03] MEDS ORDERED: LEVALBUTEROL/IPRATROPIUM NEB INH SCH (21:00)
[2017-02-03 21:11] LABS: TOXIC GRANULATION 3+; VACUOLIZATION 2+
[2017-02-03 21:14] LABS: COMPLETE YES; HYPOSEGMENTED POLYS 3+; LYMPH ABS # 0.54 K/uL (1.2-3.4); LYMPHOCYTE % 56.9 %
[2017-02-03 21:17] LABS: NEUTROPHILS % 37.6 %
[2017-02-03] MEDS ORDERED: MIDAZOLAM HCL 5 MG/ML 2ML VIAL IV ONE (22:44)
[2017-02-03] MEDS ORDERED: ETOMIDATE 2 MG/ML 20 ML VIAL IV ONE (22:44)
--- NOTE | 2017-02-04 05:19 | OPERATIVE REPORT ---
DATE OF OPERATION: 02/03/2017 PROCEDURE: Emergent endotracheal intubation. INDICATION: Acute respiratory failure in a patient who is having large left lower lobe pneumonia, is neutropenic and in sepsis. CONSENT: Informed consent was obtained from the patient himself after indications, potential complications and alternative managements were discussed with him. MONITORING: Throughout the procedure, the patient was monitored using continuous ECG tracing, pulse oximetry and blood pressure monitoring. CONSCIOUS SEDATION: Achieved using closed to 300 mg of propofol as the patient is alcoholic and very tolerant to sedatives. DESCRIPTION OF THE PROCEDURE: After proper timeout was performed and application of conscious sedation medications was performed, a size 3 MAC blade was used to visualize the vocal cords of the patient by introducing it into the oral cavity. Subsequently, a size 8 ET tube was inserted under direct vision and cannulated in between the vocal cords. The ET tube was advanced to the point of 24 cm on the lip and the cuff was inflated, the tube was fixed in place and the patient was connected to mechanical ventilation. COMPLICATIONS: None apparent. The patient saturated above 90% throughout the procedure. A post-procedure x-ray confirmed the tip of the ET tube to be about 3 cm above the isael. I attest to the content of the Intraoperative Record and any orders documented therein. Any exception s are noted below.
[2017-02-04] MEDS ORDERED: FILGRASTIM 300 MCG/ML 1 ML VIAL SQ SCH (09:00)
[2017-02-04] MEDS ORDERED: GABAPENTIN 600MG X1 DOSE PO SCH (18:00)
[2017-02-05] MEDS ORDERED: LEVOFLOXACIN 750MG / D5W IV SCH (04:00)
[2017-02-05] MEDS ORDERED: GABAPENTIN 400MG X1 DOSE PO SCH (18:00)
[2017-02-05 20:44] LABS: COD UR NEGATIVE NG/ML (CUTOFF=50); HYDROCOD UR NEGATIVE NG/ML (CUTOFF=50); HYDROMOR UR NEGATIVE NG/ML (CUTOFF=50); MORPHINE UR NEGATIVE NG/ML (CUTOFF=50); NORHYDROCODONE CONF UR NEGATIVE NG/ML (CUTOFF=50); OXYMORPH UR 1960 NG/ML (CUTOFF=50)
[2017-02-06] MEDS ORDERED: GABAPENTIN 100MG X1 DOSE PO SCH (18:00)
== END 2017-02-03 22:45 | disposition short-term general hospital (02) | DRG 871 ==
LOC: EDBD 02:28 → C.EDB 02:29 → C.MSICU 05:18 → ENRESERV 05:55 → C.MSICU 11:36
PROVIDERS: ADMIT Internal Medicine; ATTEND Hospitalist
PROC: 0BH17EZ Insertion of Endotracheal Airway into Trachea, Via Natural or Artificial Opening (ICD-10-PCS; principal; 2017-02-03)
PROC: 06HM33Z Insertion of Infusion Device into Right Femoral Vein, Percutaneous Approach (ICD-10-PCS; 2017-02-03)
PROC: 04HK33Z Insertion of Infusion Device into Right Femoral Artery, Percutaneous Approach (ICD-10-PCS; 2017-02-03)
DX: A41.9 Sepsis, unspecified organism (principal); J18.9 Pneumonia, unspecified organism; R65.21 Severe sepsis with septic shock; J96.01 Acute respiratory failure with hypoxia; D61.818 Other pancytopenia; K86.1 Other chronic pancreatitis; E87.1 Hypo-osmolality and hyponatremia; N17.9 Acute kidney failure, unspecified; M26.211 Malocclusion, Angle's class I; F10.20 Alcohol dependence, uncomplicated; F17.200 Nicotine dependence, unspecified, uncomplicated; I10 Essential (primary) hypertension; D69.6 Thrombocytopenia, unspecified; R74.0 Nonspecific elevation of levels of transaminase and lactic acid dehydrogenase [LDH]; K40.90 Unilateral inguinal hernia, without obstruction or gangrene, not specified as recurrent; Z83.3 Family history of diabetes mellitus; Z82.49 Family history of ischemic heart disease and other diseases of the circulatory system; Z79.899 Other long term (current) drug therapy; E11.65 Type 2 diabetes mellitus with hyperglycemia; D70.9 Neutropenia, unspecified; Z79.4 Long term (current) use of insulin; F32.9 Major depressive disorder, single episode, unspecified; E86.0 Dehydration

== ENCOUNTER 2017-07-04 17:44 | Inpatient (IN) | payer OTHER ==
[~2017-07-04] VITALS: Ht 177.8 cm; Wt 73.8 kg
[~2017-07-04 17:44] MED LIST changes: +ATRINS INH; -FLV1 PO; +Piperacill/Tazobac Consult; +Vancomycin Consult Active; +XPNINS1255 INH; +[UNRECOGNIZED DRUG - CODE] SQ
[2017-07-04 18:59] LABS: BASO % 0.6 %; BASO ABS # 0.03 K/uL (0-0.2); EOS % 0.4 %; EOS ABS # 0.02 K/uL (0-0.5); HEMATOCRIT 46.8 % (42-52); IG# 0.01 K/uL (0.00-0.02); LYMPH % 41.1 %; LYMPH ABS # 2.18 K/uL (1.2-3.4); MEAN CELL VOLUME 92.1 fL (80-100); MEAN CORPUSCULAR HEMOGLOBIN 31.5 pg (25-34); MEAN CORPUSCULAR HGB CONC 34.2 g/dl (32-36); MEAN PLATELET VOLUME 9.8 fL (7.4-10.4); MONO % 6.2 %; MONO ABS # 0.33 K/uL (0.11-0.59); NEUT % 51.5 %; NEUT ABS # 2.73 K/uL (1.4-6.5); PLATELET COUNT 237 K/uL (130-400); RED CELL DISTRIBUTION WIDTH CV 14.2 % (11.5-14.5)
[2017-07-04 19:09] LABS: INR 1.2 (0.9-1.1)
[2017-07-04 19:15] LABS: ALBUMIN 3.4 gm/dl (3.4-5.0); ALT/SGPT 44 U/L (12-78); AST/SGOT 62 U/L (15-37); BLOOD UREA NITROGEN 6 mg/dl (7-18); CALCIUM 8.5 mg/dl (8.5-10.1); CARBON DIOXIDE 29 mmol/L (21-32); CREATININE 0.67 mg/dl (0.60-1.40); GLUCOSE 146 mg/dl (70-99); POTASSIUM 4.3 mmol/L (3.5-5.1); SODIUM 138 mmol/L (136-145)
[2017-07-04 19:18] LABS: ALKALINE PHOSPHATASE 117 U/L (45-117); TOTAL PROTEIN 7.4 gm/dl (6.4-8.2)
--- NOTE | 2017-07-04 20:27 | DIAGNOSTIC IMAGING REPORT ---
CT HEAD WITHOUT CONTRAST (CT) CLINICAL HISTORY: Altered mental status COMPARISON STUDY: No previous studies for comparison. TECHNIQUE: Axial CT of the brain is performed from the vertex to the skull base. IV contrast was not administered for this examination. A dose lowering technique was utilized adhering to the principles of ALARA. CT DOSE: 537.48 mGy.cm FINDINGS: No intra or extra-axial mass lesions are visualized. There is no CT evidence of acute cortical infarction. There is no evidence of midline shift. There is no acute hemorrhage. No calvarial fractures are visualized. There is no evidence of pathologic ventricular dilatation. There is no evidence of acute sinusitis IMPRESSION: No acute intracranial findings Electronically signed by: Eben Orozco M.D. 07/04/2017 8:26 PM Dictated Date/Time: 07/04/2017 8:25 PM
--- NOTE | 2017-07-04 20:31 | DIAGNOSTIC IMAGING REPORT ---
CT SCAN OF THE ABDOMEN AND PELVIS WITHOUT CONTRAST CLINICAL HISTORY: Vomiting and diarrhea COMPARISON STUDY: 02/03/2017 TECHNIQUE: CT scan of the abdomen and pelvis was performed from the lung bases to the proximal femurs. Images are reviewed in the axial, sagittal, and coronal planes. IV contrast was not administered for this examination. A dose lowering technique was utilized adhering to the principles of ALARA. CT DOSE: 547.14 mGy.cm FINDINGS: Lower chest: There is been marked improvement in the previously identified left basal airspace opacities. There is respiratory motion artifact. Liver: The unenhanced liver is normal in size, contour, and attenuation. There is no intrahepatic biliary ductal dilatation. Gallbladder: Unremarkable. Spleen: Normal in size and attenuation. Pancreas: Unremarkable. Adrenal glands: Unremarkable. Kidneys: The unenhanced kidneys are normal in size without hydronephrosis. There is no contour deforming renal mass lesion. No renal calculi are identified. Bowel: There are no transition zones indicate bowel obstruction. There are no findings to indicate acute appendicitis. There are no findings to indicate acute diverticulitis. Peritoneum: There is no intraperitoneal free air or abdominal ascites. There are small fat-containing hernias Vasculature: The abdominal aorta is normal in course and caliber. Adenopathy: None. Pelvic viscera: The bladder, and pelvic viscera are unremarkable. Skeletal structures: There are old left-sided rib deformities. IMPRESSION: 1. Marked improvement in the previous identified left lower lobe airspace opacities 2. No evidence of bowel obstruction. No evidence of free air 3. No renal, ureteral, or bladder calculi identified 4. No evidence of acute diverticulitis. No evidence of acute appendicitis. Electronically signed by: Eben Orozco M.D. 07/04/2017 8:30 PM Dictated Date/Time: 07/04/2017 8:26 PM
[2017-07-04] MEDS ORDERED: VANCOMYCIN INJ 1,000 MG in SODIUM CHLORIDE 0.9% 250ML 250 ML IV STA (21:17)
[2017-07-04] MEDS ORDERED: LACTULOSE SYRUP 20 GM/30 ML UDC PO STA (21:17)
[2017-07-04] MEDS ORDERED: PIPERACILL/TAZOBAC IV 4.5 GM in DEXTROSE 5% 100ML 100 ML IV STA (21:17)
--- NOTE | 2017-07-04 21:20 | DIAGNOSTIC IMAGING REPORT ---
CHEST ONE VIEW PORTABLE CLINICAL HISTORY: back pain COMPARISON STUDY: 02/03/2017 FINDINGS: The heart is normal in size. There is no failure. There is borderline elevation left hemidiaphragm. There are minor left basilar airspace opacities. The right lung is clear. There are no significant pleural effusions.[ IMPRESSION: Marked interval improvement in the aeration of the left lung with mild residual left basilar airspace opacities Electronically signed by: Eben Orozco M.D. 07/04/2017 9:18 PM Dictated Date/Time: 07/04/2017 9:17 PM
--- NOTE | 2017-07-04 21:22 | DIAGNOSTIC IMAGING REPORT ---
L FOOT 2 VIEWS CLINICAL HISTORY: Infection. Possible osteomyelitis. COMPARISON: None. DISCUSSION: There are postsurgical changes of a first toe amputation at the level of the distal aspect of the proximal phalanx. There is mild nonspecific periostitis. The bones are osteopenic. No air is visualized within the soft tissues. There are no acute fractures. IMPRESSION: Postsurgical changes of a prior first toe amputation. Mild nonspecific periostitis. While likely postsurgical, infection could appear similar. Electronically signed by: Eben Orozco M.D. 07/04/2017 9:21 PM Dictated Date/Time: 07/04/2017 9:19 PM
--- NOTE | 2017-07-04 21:24 | EMERGENCY ROOM VISIT NOTE ---
History First contact with patient: 17:48 Chief Complaint: ALTERED MENTAL STATUS Stated Complaint: AMS, DIARRHEA, VOMITING Nursing Triage Summary: Patient has history of Liver Chirrosis presents to ER with Altered mental status starting around 1300. EMS states he began vomitting around 0300, and at 1300 mother noted an AMS. per EMS mother states patient stood up to go to the bathroom, but then forgot what he was doing and laid back down. Patient not answering questions on arrival to ER. Per EMS mother states he was having periods of agitation earlier today which is unsual for patient. History of Present Illness The patient is a 37 year old male who presents to the Emergency Room via EMS with reportedly altered mental status from home. Pt is mostly non verbal although says his "back hurts" when asked where he has pain. Pt has h/o liver cirrhosis, lives at home with his mother, although he is here alone and interview is very limited. Has been seen here in the past for a toe ulcer that caused sepsis and required transfer. Review of Systems ROS limited due to mental status Past Medical/Surgical History Medical Problems: (1) Alcoholic hepatitis (2) Anxiety disorder (3) Chronic alcoholic pancreatitis (4) Depression (5) Depressive disorder (6) DM type 2 (diabetes mellitus, type 2) (7) History of alcohol abuse (8) History of Clostridium difficile (9) Hyperlipidemia (10) Hypertension (11) Pancreatitis (12) Tobacco abuse (13) Wernicke encephalopathy Surgical Problems: (1) H/O wisdom tooth extraction (2) S/P vasectomy Family History Cancer Diabetes mellitus Heart disease Hypertension Lung disease Social History Smoking Status: Unknown if Ever Smoked Alcohol Use: heavy Drug Use: none Marital Status: single Current/Historical Medications Scheduled Amlodipine (Norvasc), 10 MG PO QAM Atorvastatin (Lipitor), 20 MG PO QAM Buprenorphine Hcl-Naloxone Hcl (Suboxone 8-2 Mg), 2-2.5 TAB SL DAILY Citalopram Hydrobromide (Celexa), 40 MG PO QAM Filgrastim (Neupogen), 300 MCG SQ DAILY Gabapentin (Neurontin), 300 MG PO TID Glipizide (Glipizide Er), 1 TAB PO QAM Hydrochlorothiazide (Hctz), 25 MG PO QAM Insulin Glargine (Lantus Solostar), 10-32 UNITS SC DAILY Ipratropium Indio (Ipratropium Indio), 0.5 MG INH Q6R Levalbuterol (Levalbuterol), 1.25 MG INH Q6R Lisinopril (Lisinopril), 40 MG PO QAM Metformin Hcl (Glucophage), 1 TAB PO BID Omeprazole (Prilosec), 40 MG PO QAM Pot Phosphate Monobasic W/ Sod (Phospha 250 Neutral), 1 TAB PO QID Ranitidine Hcl (Zantac), 300 MG PO HS Sucralfate (Carafate), 1 GM PO QID Scheduled PRN Trazodone Hcl (Trazodone), 50 MG PO HS PRN for PRN [Piperacill/Tazobac Consult], 1 EA N/A UD PRN for Consult [Vancomycin Consult Active], 1 EA N/A DAILY PRN for Consult Physical Exam Vital Signs Date Time Temp Pulse Resp B/P (MAP) Pulse Ox O2 Delivery O2 Flow Rate FiO2 07/04/17 19:42 72 140/92 98 Room Air 07/04/17 18:15 60 07/04/17 17:57 Room Air 07/04/17 17:53 37.0 60 16 146/116 97 Room Air Physical Exam GENERAL: Appears sleepy, mostly nonverbal. Flexes his legs at the hip and makes grunting noises from time to time. HENT: Normocephalic, atraumatic. Oropharynx unremarkable. EYES: Normal conjunctiva. Unable to assess Sclera RESPIRATORY: Clear to auscultation. CARDIAC: Regular rate, normal rhythm. Extremities warm and well perfused. Pulses equal. ABDOMEN: Soft, non-distended. No tenderness to palpation. No rebound or guarding. No masses. RECTAL: Deferred. MUSCULOSKELETAL: Chest examination reveals no tenderness. The back is symmetrical on inspection without obvious abnormality. There is no CVA tenderness to palpation. No joint edema. NEURO: Normal sensorium. No sensory or motor deficits noted. SKIN: No rash or jaundice noted. Medical Decision & Procedures Laboratory Results 07/04/17 18:40 Red Blood Count 5.08, Mean Corpuscular Volume 92.1, Mean Corpuscular Hemoglobin 31.5, Mean Corpuscular Hemoglobin Concent 34.2, Mean Platelet Volume 9.8, Neutrophils (%) (Auto) 51.5, Lymphocytes (%) (Auto) 41.1, Monocytes (%) (Auto) 6.2, Eosinophils (%) (Auto) 0.4, Basophils (%) (Auto) 0.6, Neutrophils # (Auto) 2.73, Lymphocytes # (Auto) 2.18, Monocytes # (Auto) 0.33, Eosinophils # (Auto) 0.02, Basophils # (Auto) 0.03 07/04/17 18:40 Test 07/04/17 18:40 07/04/17 19:08 07/04/17 19:55 07/04/17 21:12 White Blood Count 5.30 K/uL (4.8-10.8) Red Blood Count 5.08 M/uL (4.7-6.1) Hemoglobin 16.0 g/dL (14.0-18.0) Hematocrit 46.8 % (42-52) Mean Corpuscular Volume 92.1 fL (80-100) Mean Corpuscular Hemoglobin 31.5 pg (25-34) Mean Corpuscular Hemoglobin Concent 34.2 g/dl (32-36) Platelet Count 237 K/uL (130-400) Mean Platelet Volume 9.8 fL (7.4-10.4) Neutrophils (%) (Auto) 51.5 % Lymphocytes (%) (Auto) 41.1 % Monocytes (%) (Auto) 6.2 % Eosinophils (%) (Auto) 0.4 % Basophils (%) (Auto) 0.6 % Neutrophils # (Auto) 2.73 K/uL (1.4-6.5) Lymphocytes # (Auto) 2.18 K/uL (1.2-3.4) Monocytes # (Auto) 0.33 K/uL (0.11-0.59) Eosinophils # (Auto) 0.02 K/uL (0-0.5) Basophils # (Auto) 0.03 K/uL (0-0.2) RDW Standard Deviation 48.0 fL (36.4-46.3) RDW Coefficient of Variation 14.2 % (11.5-14.5) Immature Granulocyte % (Auto) 0.2 % Immature Granulocyte # (Auto) 0.01 K/uL (0.00-0.02) Erythrocyte Sedimentation Rate 2 mm/hr (0-14) Prothrombin Time 12.5 SECONDS (9.0-12.0) Prothromb Time International Ratio 1.2 (0.9-1.1) Anion Gap 4.0 mmol/L (3-11) Est Creatinine Clear Calc Drug Dose 156.0 ml/min Estimated GFR () 141.3 Estimated GFR (Non- 121.9 BUN/Creatinine Ratio 9.6 (10-20) Calcium Level 8.5 mg/dl (8.5-10.1) Total Bilirubin 0.4 mg/dl (0.2-1) Direct Bilirubin 0.1 mg/dl (0-0.2) Aspartate Amino Transf (AST/SGOT) 62 U/L (15-37) Alanine Aminotransferase (ALT/SGPT) 44 U/L (12-78) Alkaline Phosphatase 117 U/L (45-117) Ammonia 141.8 umol/L (11-32) C-Reactive Protein < 0.29 mg/dl (0-0.29) Total Protein 7.4 gm/dl (6.4-8.2) Albumin 3.4 gm/dl (3.4-5.0) Globulin 4.0 gm/dl (2.5-4.0) Albumin/Globulin Ratio 0.9 (0.9-2) Lactic Acid Level 2.8 mmol/L (0.4-2.0) Urine Color YELLOW Urine Appearance CLEAR (CLEAR) Urine pH >= 9.0 (4.5-7.5) Urine Specific Nicholson 1.013 (1.000-1.030) Urine Protein 1+ (NEG) Urine Glucose (UA) NEG (NEG) Urine Ketones NEG (NEG) Urine Occult Blood NEG (NEG) Urine Nitrite NEG (NEG) Urine Bilirubin NEG (NEG) Urine Urobilinogen NEG (NEG) Urine Leukocyte Esterase NEG (NEG) Urine WBC (Auto) 0 /hpf (0-5) Urine RBC (Auto) 0-4 /hpf (0-4) Urine Hyaline Casts (Auto) 0 /lpf (0-5) Urine Epithelial Cells (Auto) 10-20 /lpf (0-5) Urine Bacteria (Auto) NEG (NEG) Procedure CT HEAD WITHOUT CONTRAST (CT) CLINICAL HISTORY: Altered mental status COMPARISON STUDY: No previous studies for comparison. TECHNIQUE: Axial CT of the brain is performed from the vertex to the skull base. IV contrast was not administered for this examination. A dose lowering technique was utilized adhering to the principles of ALARA. CT DOSE: 537.48 mGy.cm FINDINGS: No intra or extra-axial mass lesions are visualized. There is no CT evidence of acute cortical infarction. There is no evidence of midline shift. There is no acute hemorrhage. No calvarial fractures are visualized. There is no evidence of pathologic ventricular dilatation. There is no evidence of acute sinusitis IMPRESSION: No acute intracranial findings Electronically signed by: Eben Orozco M.D. 07/04/2017 8:26 PM Dictated Date/Time: 07/04/2017 8:[address] SCAN OF THE ABDOMEN AND PELVIS WITHOUT CONTRAST CLINICAL HISTORY: Vomiting and diarrhea COMPARISON STUDY: 02/03/2017 TECHNIQUE: CT scan of the abdomen and pelvis was performed from the lung bases to the proximal femurs. Images are reviewed in the axial, sagittal, and coronal planes. IV contrast was not administered for this examination. A dose lowering technique was utilized adhering to the principles of ALARA. CT DOSE: 547.14 mGy.cm FINDINGS: Lower chest: There is been marked improvement in the previously identified left basal airspace opacities. There is respiratory motion artifact. Liver: The unenhanced liver is normal in size, contour, and attenuation. There is no intrahepatic biliary ductal dilatation. Gallbladder: Unremarkable. Spleen: Normal in size and attenuation. Pancreas: Unremarkable. Adrenal glands: Unremarkable. Kidneys: The unenhanced kidneys are normal in size without hydronephrosis. There is no contour deforming renal mass lesion. No renal calculi are identified. Bowel: There are no transition zones indicate bowel obstruction. There are no findings to indicate acute appendicitis. There are no findings to indicate acute diverticulitis. Peritoneum: There is no intraperitoneal free air or abdominal ascites. There are small fat-containing hernias Vasculature: The abdominal aorta is normal in course and caliber. Adenopathy: None. Pelvic viscera: The bladder, and pelvic viscera are unremarkable. Skeletal structures: There are old left-sided rib deformities. IMPRESSION: 1. Marked improvement in the previous identified left lower lobe airspace opacities 2. No evidence of bowel obstruction. No evidence of free air 3. No renal, ureteral, or bladder calculi identified 4. No evidence of acute diverticulitis. No evidence of acute appendicitis. Electronically signed by: Eben Orozco M.D. 07/04/2017 8:30 PM Dictated Date/Time: 07/04/2017 8:26 PM ED Course 1900 saw and assessed pt with attending reviewed labs - lac and ammonia elevated as below. CT head and abdomen unremarkable. 2122 vanc, zosyn, lactulose ordered. 2132 spoke with R[facility]ael hospitalist on the phone, they will admit. Medical Decision The patient is a 37 year old male who presents to the Emergency Room via EMS with reportedly altered mental status from home. Pt is mostly non verbal although says his "back hurts" when asked where he has pain. Pt has h/o liver cirrhosis, lives at home with his mother, although he is here alone and interview is very limited. Has been seen here in the past for a toe ulcer that caused sepsis and required transfer. Ddx: hepatic encephalopathy, sepsis, UTI, osteomyelitis Ammonia level is markedly elevated 141.8. In 01/2017 was as low as 18. CRP is wnl. However Lactate is moderately elevated at 2.8. CT of head and abdomen are unremarkable.Suspect this is hepatic encephalopathy - will treat with oral or MA lactulose, prep for admission - spoke with Rachael on the phone, they will admit. Impression Primary Impression: Hepatic encephalopathy Departure Information Referrals No Doctor, Assigned (PCP) Patient Instructions My [facility] Resident Tracking Resident Involvement: Resident Care Provided Care Provided: Adult ED
[2017-07-04] MEDS ORDERED: VANCOMYCIN CONSULT ACTIVE PRN (21:30)
[2017-07-04] MEDS ORDERED: SODIUM CHLORIDE 0.9% 1000ML 1,000 ML IV STA (21:42)
[2017-07-04 22:17] LABS: LIPASE 39 U/L (73-393)
[2017-07-04] MEDS ORDERED: INSULIN ASPART 100 UNITS/ML 3 ML PEN SC ONE (22:28)
[2017-07-04] MEDS ORDERED: GLUCOSE 10 TABS/TUBE PO PRN (22:30)
[2017-07-04] MEDS ORDERED: MULTI-VITAMIN INFUSION INJ 10 ML, THIAMINE HCL INJ 100 MG, FoLIC ACID INJ 1 MG in SODIU... IV ONE (22:30)
[2017-07-04] MEDS ORDERED: GLUCOSE 40% GEL 15 GM TUBE PO PRN (22:30)
[2017-07-04] MEDS ORDERED: ACETAMINOPHEN 325 MG TAB PO PRN (22:30)
[2017-07-04] MEDS ORDERED: DEXTROSE 50% 50 ML SYR IV PRN (22:30)
[2017-07-04] MEDS ORDERED: GLUCAGON FOR INJ 1 MG VIAL SQ PRN (22:30)
[2017-07-04] MEDS ORDERED: LORAZEPAM 2 MG/ML 1 ML VIAL IV PRN (22:45)
[2017-07-04] MEDS ORDERED: PROCHLORPERAZINE INJ 5 MG in SYRINGE 4 ML IV PRN (22:45)
[2017-07-04] MEDS ORDERED: FRRS300 PO (22:52)
[2017-07-04] MEDS ORDERED: SLWMEC PO (22:53)
[2017-07-04] MEDS ORDERED: MULT-513 PO (22:55)
[2017-07-04] MEDS ORDERED: THIA100T11 PO (22:55)
[2017-07-04] MEDS ORDERED: CITA40TA12 PO (22:57)
[2017-07-04] MEDS ORDERED: OMEP40CA41 PO (22:57)
[2017-07-04] MEDS ORDERED: METO25TA56 PO (23:02)
[2017-07-04] MEDS ORDERED: GABA-113 PO (23:02)
[2017-07-04] MEDS ORDERED: POLY335019 PO (23:02)
[2017-07-04] MEDS ORDERED: CALC1CHW90 PO (23:02)
[2017-07-04] MEDS ORDERED: ASPI81TA28 PO (23:02)
[2017-07-04] MEDS ORDERED: TRAM-10 PO (23:06)
[2017-07-04] MEDS ORDERED: INSDGI SC (23:06)
[2017-07-04] MEDS ORDERED: NVLG SQ (23:06)
[2017-07-04] MEDS ORDERED: AMOX875T PO (23:07)
[2017-07-04] MEDS ORDERED: METOPROLOL TARTRATE 25 MG TAB PO STA (23:21)
--- NOTE | 2017-07-05 00:19 | EMERGENCY ROOM VISIT NOTE ---
History Report prepared by Sandeep: Rufina Kapoor Under the Supervision of: Dr. Deny Sifuentes M.D. First contact with patient: 17:48 Chief Complaint: ALTERED MENTAL STATUS Stated Complaint: AMS, DIARRHEA, VOMITING History of Present Illness The patient is a 37 year old male who presents to the Emergency Room with persistent altered mental status starting around 5 hours ago. The patient presents to the ED by EMS. The patient has been vomiting. The patient complains of back pain. The patient has a history of liver cirrhosis. He was septic with gangrene in his toe 4 months ago. He lives with his mother. The history is limited due to altered mental status. Source of History: patient, nursing staff History Limited By: AMS Onset: 5 hours ago Position: other (global) Quality: other (AMS) Timing: other (persistent) Associated Symptoms: + vomiting, + back pain Review of Systems Limited due to altered mental status. Past Medical & Surgical Medical Problems: (1) Alcoholic hepatitis (2) Anxiety disorder (3) Chronic alcoholic pancreatitis (4) Depression (5) Depressive disorder (6) DM type 2 (diabetes mellitus, type 2) (7) Encephalopathy (8) History of alcohol abuse (9) History of Clostridium difficile (10) Hyperlipidemia (11) Hypertension (12) Pancreatitis (13) Tobacco abuse (14) Wernicke encephalopathy Surgical Problems: (1) H/O wisdom tooth extraction (2) S/P vasectomy Family History Cancer Diabetes mellitus Heart disease Hypertension Lung disease Social History Smoking Status: Unknown if Ever Smoked Alcohol Use: heavy Drug Use: none Marital Status: single Housing Status: lives with family Current/Historical Medications Scheduled Amoxicillin & Pot Clavulanate (Augmentin 875-125 mg), 1 TAB PO BID Aspirin (Aspirin Ec), 81 MG PO DAILY Calcium Carbonate (Antacid) (Calcium Carbonate Extra S), 2 TABS PO BID Citalopram Hydrobromide (Celexa), 40 MG PO DAILY Ferrous Sulfate (Ferrous Sulfate), 325 MG PO BID Gabapentin (Neurontin), 600 MG PO TID Insulin Aspart (Novolog), 15 UNITS SQ TIDM Insulin Glargine (Lantus), 30 UNITS SC QPM Magnesium Chloride (Slow-Mag Tab), 2 TABS PO DAILY Metoprolol Tartrate (Lopressor) (Lopressor), 12.5 MG PO Q12 Multivitamins/Minerals (Mvi With Minerals), 1 TAB PO DAILY Omeprazole (Prilosec), 40 MG PO DAILY Thiamine Hcl (Vitamin B-1), 100 MG PO DAILY Scheduled PRN Polyethylene Glycol 3350 (Miralax), 17 GM PO BID PRN for Constipation Tramadol (Ultram), 50 MG PO Q6 PRN for Pain Trazodone Hcl (Trazodone), 50 MG PO HS PRN for Sleep Allergies Coded Allergies: Iodinated Diagnostic Agents (Verified Allergy, Unknown, UNKNOWN, 07/04/17) Physical Exam Vital Signs Date Time Temp Pulse Resp B/P (MAP) Pulse Ox O2 Delivery O2 Flow Rate FiO2 07/04/17 21:39 61 18 149/99 98 Room Air 07/04/17 19:42 72 140/92 98 Room Air 07/04/17 18:15 60 07/04/17 17:57 Room Air 07/04/17 17:53 37.0 60 16 146/116 97 Room Air Physical Exam GENERAL: Fatigued appearing, uncomfortable, no distress, alert to self, otherwise confused HENT: Normocephalic, atraumatic. Dry cracked mucous membranes. Oropharynx unremarkable. EYES: Normal conjunctiva. Sclera non-icteric. NECK: Supple. No nuchal rigidity. FROM. No JVD. RESPIRATORY: Clear to auscultation. CARDIAC: Regular rate, normal rhythm. Extremities warm and well perfused. Pulses equal. ABDOMEN: Soft, non-distended. No tenderness to palpation. No rebound or guarding. No masses. RECTAL: Deferred. MUSCULOSKELETAL: Chest examination reveals no tenderness. The back is symmetrical on inspection without obvious abnormality. There is no CVA tenderness to palpation. No joint edema. LOWER EXTREMITIES: Calves are equal size bilaterally and non-tender. No edema. Left great toe s/p amputation with incision site clean dry and intact. Mild erythema/warmth to the left foot phalanges 1-4. No crepitus. NEURO: Slight bilateral asterixis. Moving all extremities equally. SKIN: No rash or jaundice noted. Medical Decision & Procedures ER Provider Diagnostic Interpretation: Xray results as stated below per my and radiologist interpretation. Radiology results as stated below per my review and radiologist interpretation: CHEST ONE VIEW PORTABLE CLINICAL HISTORY: back pain COMPARISON STUDY: 02/03/2017 FINDINGS: The heart is normal in size. There is no failure. There is borderline elevation left hemidiaphragm. There are minor left basilar airspace opacities. The right lung is clear. There are no significant pleural effusions.[ IMPRESSION: Marked interval improvement in the aeration of the left lung with mild residual left basilar airspace opacities Electronically signed by: Eben Orozco M.D. 07/04/2017 9:18 PM Dictated Date/Time: 07/04/2017 9:17 PM L FOOT 2 VIEWS CLINICAL HISTORY: Infection. Possible osteomyelitis. COMPARISON: None. DISCUSSION: There are postsurgical changes of a first toe amputation at the level of the distal aspect of the proximal phalanx. There is mild nonspecific periostitis. The bones are osteopenic. No air is visualized within the soft tissues. There are no acute fractures. IMPRESSION: Postsurgical changes of a prior first toe amputation. Mild nonspecific periostitis. While likely postsurgical, infection could appear similar. Electronically signed by: Eben Orozco M.D. 07/04/2017 9:21 PM Dictated Date/Time: 07/04/2017 9:[address] HEAD WITHOUT CONTRAST (CT) CLINICAL HISTORY: Altered mental status COMPARISON STUDY: No previous studies for comparison. TECHNIQUE: Axial CT of the brain is performed from the vertex to the skull base. IV contrast was not administered for this examination. A dose lowering technique was utilized adhering to the principles of ALARA. CT DOSE: 537.48 mGy.cm FINDINGS: No intra or extra-axial mass lesions are visualized. There is no CT evidence of acute cortical infarction. There is no evidence of midline shift. There is no acute hemorrhage. No calvarial fractures are visualized. There is no evidence of pathologic ventricular dilatation. There is no evidence of acute sinusitis IMPRESSION: No acute intracranial findings Electronically signed by: Eben Orozco M.D. 07/04/2017 8:26 PM Dictated Date/Time: 07/04/2017 8:[address] SCAN OF THE ABDOMEN AND PELVIS WITHOUT CONTRAST CLINICAL HISTORY: Vomiting and diarrhea COMPARISON STUDY: 02/03/2017 TECHNIQUE: CT scan of the abdomen and pelvis was performed from the lung bases to the proximal femurs. Images are reviewed in the axial, sagittal, and coronal planes. IV contrast was not administered for this examination. A dose lowering technique was utilized adhering to the principles of ALARA. CT DOSE: 547.14 mGy.cm FINDINGS: Lower chest: There is been marked improvement in the previously identified left basal airspace opacities. There is respiratory motion artifact. Liver: The unenhanced liver is normal in size, contour, and attenuation. There is no intrahepatic biliary ductal dilatation. Gallbladder: Unremarkable. Spleen: Normal in size and attenuation. Pancreas: Unremarkable. Adrenal glands: Unremarkable. Kidneys: The unenhanced kidneys are normal in size without hydronephrosis. There is no contour deforming renal mass lesion. No renal calculi are identified. Bowel: There are no transition zones indicate bowel obstruction. There are no findings to indicate acute appendicitis. There are no findings to indicate acute diverticulitis. Peritoneum: There is no intraperitoneal free air or abdominal ascites. There are small fat-containing hernias Vasculature: The abdominal aorta is normal in course and caliber. Adenopathy: None. Pelvic viscera: The bladder, and pelvic viscera are unremarkable. Skeletal structures: There are old left-sided rib deformities. IMPRESSION: 1. Marked improvement in the previous identified left lower lobe airspace opacities 2. No evidence of bowel obstruction. No evidence of free air 3. No renal, ureteral, or bladder calculi identified 4. No evidence of acute diverticulitis. No evidence of acute appendicitis. Electronically signed by: Eben Orozco M.D. 07/04/2017 8:30 PM Dictated Date/Time: 07/04/2017 8:26 PM Laboratory Results 07/04/17 18:40 Red Blood Count 5.08, Mean Corpuscular Volume 92.1, Mean Corpuscular Hemoglobin 31.5, Mean Corpuscular Hemoglobin Concent 34.2, Mean Platelet Volume 9.8, Neutrophils (%) (Auto) 51.5, Lymphocytes (%) (Auto) 41.1, Monocytes (%) (Auto) 6.2, Eosinophils (%) (Auto) 0.4, Basophils (%) (Auto) 0.6, Neutrophils # (Auto) 2.73, Lymphocytes # (Auto) 2.18, Monocytes # (Auto) 0.33, Eosinophils # (Auto) 0.02, Basophils # (Auto) 0.03 07/04/17 18:40 Test 07/04/17 18:40 07/04/17 19:55 White Blood Count 5.30 K/uL (4.8-10.8) Red Blood Count 5.08 M/uL (4.7-6.1) Hemoglobin 16.0 g/dL (14.0-18.0) Hematocrit 46.8 % (42-52) Mean Corpuscular Volume 92.1 fL (80-100) Mean Corpuscular Hemoglobin 31.5 pg (25-34) Mean Corpuscular Hemoglobin Concent 34.2 g/dl (32-36) Platelet Count 237 K/uL (130-400) Mean Platelet Volume 9.8 fL (7.4-10.4) Neutrophils (%) (Auto) 51.5 % Lymphocytes (%) (Auto) 41.1 % Monocytes (%) (Auto) 6.2 % Eosinophils (%) (Auto) 0.4 % Basophils (%) (Auto) 0.6 % Neutrophils # (Auto) 2.73 K/uL (1.4-6.5) Lymphocytes # (Auto) 2.18 K/uL (1.2-3.4) Monocytes # (Auto) 0.33 K/uL (0.11-0.59) Eosinophils # (Auto) 0.02 K/uL (0-0.5) Basophils # (Auto) 0.03 K/uL (0-0.2) RDW Standard Deviation 48.0 fL (36.4-46.3) RDW Coefficient of Variation 14.2 % (11.5-14.5) Immature Granulocyte % (Auto) 0.2 % Immature Granulocyte # (Auto) 0.01 K/uL (0.00-0.02) Erythrocyte Sedimentation Rate 2 mm/hr (0-14) Prothrombin Time 12.5 SECONDS (9.0-12.0) Prothromb Time International Ratio 1.2 (0.9-1.1) Anion Gap 4.0 mmol/L (3-11) Est Creatinine Clear Calc Drug Dose 156.0 ml/min Estimated GFR () 141.3 Estimated GFR (Non- 121.9 BUN/Creatinine Ratio 9.6 (10-20) Calcium Level 8.5 mg/dl (8.5-10.1) Magnesium Level 1.9 mg/dl (1.8-2.4) Total Bilirubin 0.4 mg/dl (0.2-1) Direct Bilirubin 0.1 mg/dl (0-0.2) Aspartate Amino Transf (AST/SGOT) 62 U/L (15-37) Alanine Aminotransferase (ALT/SGPT) 44 U/L (12-78) Alkaline Phosphatase 117 U/L (45-117) Ammonia 141.8 umol/L (11-32) Troponin I < 0.015 ng/ml (0-0.045) C-Reactive Protein < 0.29 mg/dl (0-0.29) Total Protein 7.4 gm/dl (6.4-8.2) Albumin 3.4 gm/dl (3.4-5.0) Globulin 4.0 gm/dl (2.5-4.0) Albumin/Globulin Ratio 0.9 (0.9-2) Lipase 39 U/L (73-393) Procalcitonin < 0.05 ng/ml (0-0.5) Thyroid Stimulating Hormone (TSH) 0.637 uIu/ml (0.300-4.500) Urine Color YELLOW Urine Appearance CLEAR (CLEAR) Urine pH >= 9.0 (4.5-7.5) Urine Specific [place] 1.013 (1.000-1.030) Urine Protein 1+ (NEG) Urine Glucose (UA) NEG (NEG) Urine Ketones NEG (NEG) Urine Occult Blood NEG (NEG) Urine Nitrite NEG (NEG) Urine Bilirubin NEG (NEG) Urine Urobilinogen NEG (NEG) Urine Leukocyte Esterase NEG (NEG) Urine WBC (Auto) 0 /hpf (0-5) Urine RBC (Auto) 0-4 /hpf (0-4) Urine Hyaline Casts (Auto) 0 /lpf (0-5) Urine Epithelial Cells (Auto) 10-20 /lpf (0-5) Urine Bacteria (Auto) NEG (NEG) Urine Opiates Screen NEG (NEG) Urine Methadone, Qualitative NEG (NEG) Urine Barbiturates NEG (NEG) Urine Phencyclidine (PCP) Level NEG (NEG) Ur Amphetamine/Methamphetamine NEG (NEG) MDMA (Ecstasy) Screen NEG (NEG) Urine Benzodiazepines Screen NEG (NEG) Urine Cocaine Metabolite NEG (NEG) Urine Marijuana (THC) NEG (NEG) Laboratory results reviewed by me Medications Administered Medications (Trade) Dose Ordered Sig/Elidia Route Start Time Stop Time Status Last Admin Dose Admin Lactulose (Chronulac Syrup) 30 gm NOW STAT PO 2/5/18 21:17 07/04/17 21:23 DC 07/04/17 21:54 30 GM Sodium Chloride 1,000 ml @ 999 mls/hr Q1H1M STAT IV 07/04/17 21:42 07/04/17 22:42 DC 07/04/17 21:54 999 MLS/HR ED Course 1805: The patient was evaluated in room A11B. A complete history and physical exam was performed. 2130: I discussed the patient with Rachael Combs - He will evaluate the patient for further treatment. Medical Decision I reviewed the patient's past medical history, medications, and the nursing notes as described above. Differential diagnosis: sepsis, pneumonia, bronchitis, UTI, cellulitis, osteomyelitis, hepatic encephalopathy, dehydration, electrolyte abnormality. The patient is a 37-year-old gentleman with a past medical history of cirrhosis who presents emergency Department with worsening mental status per hpi. On arrival the patient is alert to self but otherwise confused, afebrile with vital signs stable. On exam the patient has mild asterixis otherwise appears clinically dry. Labs notable for elevated ammonia to 140s which is up from normal limits previously. Of note, patient's last admission he was admitted for sepsis related to left foot infection which is now status post great toe amputation however he does have some mild erythema over the 1-4th phalanges. Plain film with ?periostitis. Lactate elevated at 2.8. Thus we'll treat empirically for sepsis. Lactulose for hepatic encephalopathy. CT abd/pelvis unremarkable. Resident d/w Rachael Michel, who will admit the patient for further management. I discussed the case with the resident physician, examined the patient, and agree with the findings and plan as documented in the residents note unless otherwise clarified here by me. Medication Reconcilliation Current Medication List: was personally reviewed by me Blood Pressure Screening Patient's blood pressure: Elevated blood pressure Referred to hospitalist. Consults Time Called: 2128 Consulting Physician: Rachael Combs Returned Call: 2130 I discussed the patient with him - He will evaluate the patient for further treatment. Impression Primary Impression: Hepatic encephalopathy Additional Impression: Sepsis Critical Care I have personally spent greater than 35 minutes of critical care time in the direct management of this patient. This includes bedside care, interpretation of diagnostic studies, and testing, discussion with consultants, patient, and family members, and other required patient management activities. This 35 minutes is in excess of all separately billable procedures. Scribe Attestation The scribe's documentation has been prepared under my direction and personally reviewed by me in its entirety. I confirm that the note above accurately reflects all work, treatment, procedures, and medical decision making performed by me. Departure Information Dispostion Being Evaluated By Hospitalist Referrals Govind Mccain M.D. (PCP) Patient Instructions [facility] Problem Qualifiers
--- NOTE | 2017-07-05 00:42 | HISTORY & PHYSICAL EXAMINATION ---
DATE OF ADMISSION: 07/04/2017 PCP : Dr. Mccain. CHIEF COMPLAINT: Altered mental status as per records. HISTORY OF PRESENT ILLNESS: History obtained from the patient, family, and records. Limited history from the patient secondary to disoriented state. Medical history significant for HTN, DM2 insulin requiring, ongoing tobacco and alcohol abuse, chronic pain, hx drug abuse as per records, mood disorder, anxiety disorder, history Wernicke's encephalopathy as per records. Recent confinement 01/2017 for septic shock secondary to left lower lobe pneumonia 2 to Acinetobacter pneumonia sp intubation, pressor Rx. Patient developed multiorgan failure. Subsequently transferred to [facility]. Confined from 02/03/2017 to 03/05/2017. He developed empyema which required thoracentesis and VATS. Dry gangrene noted on both feet subsequently noted during confinement attributed to vasopressor use. Pedal gangrene allowed to heal/resorb post hospital discharge . Patient ultimately underwent left first toe transphalangeal amputation 2017 outpatient for early osteomyelitis. CS grew MSSA, enterococcus sensitive to Ampicillin. Patient completed two-week Augmentin course. Foot wound healing well as per outpatient follow-up note with [facility] 2 weeks ago. Local wound care recommended. Last night, the patient became agitated as per partner, upset over problems with "everything." Started drinking alcohol. Early this morning, the patient woke up with achy abdominal pain, nausea, vomiting, diarrhea, nonbloody. In the afternoon, the patient was found to be confused and disoriented by his girlfriend. At the Emergency Room, patient was given given lactulose for possible hepatic encephalopathy. MEDICAL HISTORY: As above. SURGERIES: He has had foot surgery and vasectomy. HOME MEDICATIONS: Include tramadol, silver sulfadiazine, Lantus insulin, aspirin, calcium carbonate, gabapentin, metoprolol, ferrous sulfate, magnesium chloride, multivitamins, thiamine, trazodone, citalopram and omeprazole. ALLERGIES: DYE. FAMILY HISTORY: Could not be obtained. PERSONAL AND SOCIAL HISTORY: A pack daily, alcohol abuse as per family. [employer] employee. REVIEW OF SYSTEMS: Could not be obtained. PHYSICAL EXAMINATION: VITAL SIGNS: Blood pressure was noted to be 146/116, pulse rate 60, RR 16, temp 36.7, sats 98RA GENERAL: Noted to be disoriented. Limited verbal output but follows some commands. Alcoholic fetor. SKIN: Normal color, warm. HEENT: [place] palpebral conjunctivae. No ptosis. Dry mucosa. NECK: Supple, nontender. CHEST: Decreased effort. No tenderness. HEART: Regular rate and rhythm. No murmur. ABDOMEN: Soft, nontender. EXTREMITIES: Dressing on the left foot. No tenderness in legs. NEUROLOGIC: Coherent but disoriented. Gait and stance not assessed. LABORATORY DATA: Hemoglobin was noted to be 16, hemoglobin 46.8, white blood cell count 5.3, platelets 237. Sodium 138, potassium 4.3, chloride 105, CO2 of 29, BUN 6, creatinine 0.6, glucose 146. Ammonia 141. Alcohol level was noted to be 13. Urine tox negative. CT head, no acute pathology. L Foot x-ray showed postsurgical changes, first toe amputation with mild periostitis likely postsurgical. CT abdomen and pelvis, no bowel obstruction. ASSESSMENT: 1. Hepatic encephalopathy Possible alcoholic liver disease - hepatomegaly, severe hepatic cirrhosis, splenomegaly on previous CT imaging studies from last year 2. Possible depression. 3. Hx confinement for respiratory failure sp intubation, septic shock 2 to Acinetobacter baumannii pneumonia (2017) 4. osteomyelitis/gangrene, left toe (possibly from pressor rx) sp a surgery (2017) sp Augmentin Rx healing well as per family. 5. Diarrhea, rule out recurrent Clostridium difficile. 6. Hypertension. Stable 7. DM2, insulin requiring, well controlled as of recent outpatient HgA1c of 6.2 last 02/2017. 8. Ongoing tobacco abuse. 9. hx opioid abuse as per records PLAN: GMF Facilitate lactulose. Follow-up ammonia level. GI consult RE hyperammonemia, possible hepatic encephalopathy Hold home neuro-psychotropic meds for now until patient mentation improved DT precautions. stool cdif Basal insulin, ISS BG goal 140-180 Patient due for hemoglobin A1c check. May need Psych consult once patient mentation improved RE family concerns about anger/depression. PT/OT eval. Social service RE DC planning. Nicotine patch DVT prophylaxis. Lovenox subcutaneous Full code as per patient's brother. Patient's brother requesting updates from providers, Mr. Chris Ramos at [phone]. Alternative contact is patient's girlfriend, Miss Lesvia Link at [phone]. MTDD
[2017-07-05] MEDS: LACTULOSE SYRUP 30 GM/45 ML UDP PO SCH ×3 (00:58→03:19)
[2017-07-05] MEDS ORDERED: GABAPENTIN 300 MG CAP PO ONE (01:33)
[2017-07-05] MEDS ORDERED: RASPBERRY SYRUP 5 ML UDP PO STA (01:40)
[2017-07-05] MEDS ORDERED: VANCOMYCIN HCL 125 MG/2.5ML SOLN PO STA (01:40)
[2017-07-05] MEDS ORDERED: SODIUM CHLORIDE 0.9% 1000ML 1,000 ML IV ONE (02:00)
[2017-07-05 02:29] VITALS: O2SAT 96; BMI 23.3
[2017-07-05] MEDS ORDERED: SODIUM CHLORIDE 0.9% 1000ML 1,000 ML IV SCH (03:00)
[2017-07-05] MEDS ORDERED: NURSING VERBAL MED ORDER ONE (04:00)
[2017-07-05 04:51] LABS: BASO % 0.5 %; BASO ABS # 0.03 K/uL (0-0.2); EOS % 0.6 %; EOS ABS # 0.04 K/uL (0-0.5); HEMATOCRIT 39.1 % (42-52); HEMOGLOBIN 13.5 g/dL (14.0-18.0); IG# 0.02 K/uL (0.00-0.02); LYMPH % 47.8 %; MEAN CELL VOLUME 92.9 fL (80-100); MEAN CORPUSCULAR HEMOGLOBIN 32.1 pg (25-34); MEAN CORPUSCULAR HGB CONC 34.5 g/dl (32-36); MONO % 8.1 %; MONO ABS # 0.51 K/uL (0.11-0.59); NEUT % 42.7 %; NEUT ABS # 2.68 K/uL (1.4-6.5); PLATELET COUNT 156 K/uL (130-400); RED CELL DISTRIBUTION WIDTH CV 14.4 % (11.5-14.5); RED CELL DISTRIBUTION WIDTH SD 48.8 fL (36.4-46.3); WHITE BLOOD COUNT 6.28 K/uL (4.8-10.8)
[2017-07-05 05:13] LABS: CALCIUM 7.6 mg/dl (8.5-10.1); CREATININE 0.7 mg/dl (0.60-1.40); POTASSIUM 4.1 mmol/L (3.5-5.1)
[2017-07-05] MEDS ORDERED: SODIUM CHLORIDE 0.45% 1000ML 1,000 ML IV ONE (06:00)
[2017-07-05] MEDS: INSULIN ASPART 100 UNITS/ML 3 ML PEN SC SCH ×4 (06:30→21:59)
[2017-07-05] MEDS: FERROUS SULFATE 325 MG TAB PO SCH ×2 (07:24→20:35)
[2017-07-05] MEDS: TRAMADOL HCL 50 MG TAB PO PRN (07:25)
[2017-07-05] MEDS: NICOTINE 21 MG/24 HR TDSY TD SCH (07:25)
[2017-07-05] MEDS: ENOXAPARIN 40 MG/0.4 ML SYR SQ SCH (07:25)
[2017-07-05] MEDS: PANTOprazole SOD 40 MG TAB PO SCH (07:25)
[2017-07-05] MEDS: GABAPENTIN 300 MG CAP PO SCH ×2 (07:25→14:11)
[2017-07-05] MEDS: ASPIRIN 81 MG ECTAB PO SCH (07:25)
[2017-07-05 08:17] VITALS: BP 160/100; PULSE 60; TEMP 36.7; O2SAT 97
[2017-07-05] MEDS: METOPROLOL TARTRATE 25 MG TAB PO SCH ×2 (08:23→20:32)
[2017-07-05] MEDS: INSULIN GLARGINE SOLOSTAR 100 UNITS/ML 3 ML PEN SC SCH (08:33)
--- NOTE | 2017-07-05 11:29 | Gastrointestinal Consultation ---
Gastrointestinal Consultation Date of Consultation: Jul 05, 2017 Attending Physician: Gian Hill Consulting Physician: Lila Vora Reason for Consultation: Elevated ammonia, possible hepatic encephalopathy History of Present Illness Patient is a 37 year old male who was taking to ED by family for disoriented state. He had hx of HTN, DM II, ongoing tobacco and ETOH abuses, prior hx of drug abuse been on DUI,anxiety disorder, hx of Wernicke's encephalopathy. He was admitted last January 2017 for septic shock 2/2 to L pneumonia ( Acinetobacter), requiring intubation, pressors . Transferred eventually to [facility], there 02/03 to 03/05/2017, underwent thoracentesis and VATS for empyema complications. 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 He completed Augmentin x 2 weeks. Currently followed by [facility] Vascular Surgery for wound healing. He was agitate last night per partner's report and started to drink alcohol. He woke up with c/o abd pain, n/v, diarrhea w/o rectal bleeding, and appeared confused/disoriented. Brought into ED. Labs notable for elevated ammonia of 154 , ETOH level 13. He had CT head, abd/pelvis, CXR which didn't show any acute processes. Blood cx pending. Cdiff negative. Other labs didn't show any leukocytosis, anemia, coagulopathy. He had prior hx of fatty liver, chronic pancreatitis seen on EUS w mildly elevated LFTs. Current LFTs quite unremarkable : Tbili 0.4, Dbili 0.1, AST 62, LAT 44, Alk phos 117, Lipase 59. He was given a total of Lactulose 120g yesterday. Ammonia level 54 this AM. This AM he's awake and oriented x 3 though doesn't remember events from last night. No asterixis or tremors on hands on exam. He is c/o L foot pain from amputation site. He denies any n/v. He admits to be drinking 2-3 tall glasses of wine every other day. Had hx of DUI and going to go trough ETOH cessation program soon. Past Medical/Surgical History Medical Problems: (1) Abdominal pain Status: Acute (2) DKA (diabetic ketoacidoses) Status: Acute (3) Hepatic encephalopathy Status: Acute (4) Hepatorenal syndrome Status: Acute (5) History of chronic pancreatitis Status: Acute (6) Hyperglycemia Status: Acute (7) Hyponatremia Status: Acute (8) Lactic acid acidosis Status: Acute (9) Left lower lobe pneumonia Status: Acute (10) Neutropenic fever Status: Acute (11) Renal failure Status: Acute (12) Sepsis Status: Acute (13) Septic shock Status: Acute (14) Substernal chest pain Status: Acute (15) Transaminitis Status: Acute (16) Upper abdominal pain Status: Acute Past Medical History: See above Past Surgical History: As above, vasectomy Family History Cancer Diabetes mellitus Heart disease Hypertension Lung disease Social History Smoking Status: Current Some Day Smoker Alcohol Use: heavy Drug Use: none Marital Status: single Housing Status: lives with family Allergies Coded Allergies: Iodinated Diagnostic Agents (Verified Allergy, Unknown, UNKNOWN, 07/04/17) Current Medications Home Meds and Scripts Medications Dose Route/Sig Max Daily Dose Days Date Category Dose Instructions Augmentin 875-125 mg (Amoxicillin & Pot Clavulanate) 1 Tab Tab 1 Tab PO BID 07/04/17 Reported Novolog (Insulin Aspart) 100 Units/Ml Inj 15 Units SQ TIDM 07/04/17 Reported PLUS 3 UNITS FOR EVERY 50 POINTS BLOOD GLUCOSE OVER 150 Lantus (Insulin Glargine) 100 Unit/Ml Inj 30 Units SC QPM 07/04/17 Reported Ultram (Tramadol HCl) 50 Mg Tab 50 Mg PO Q6 PRN 07/04/17 Reported Miralax (Polyethylene Glycol 3350) 1 Pow Pow 17 Gm PO BID PRN 07/04/17 Reported Calcium Carbonate Extra S (Calcium Carbonate (Antacid)) 750 Mg Chw 2 Tabs PO BID 07/04/17 Reported Aspirin Ec (Aspirin) 81 Mg Tab 81 Mg PO DAILY 07/04/17 Reported Lopressor (Metoprolol Tartrate) 25 Mg Tab 12.5 Mg PO Q12 07/04/17 Reported Neurontin (Gabapentin) 300 Mg Cap 600 Mg PO TID 07/04/17 Reported Celexa (Citalopram Hydrobromide) 40 Mg Tab 40 Mg PO DAILY 07/04/17 Reported Prilosec (Omeprazole) 40 Mg Cap 40 Mg PO DAILY 07/04/17 Reported Vitamin B-1 (Thiamine HCl) 100 Mg Tab 100 Mg PO DAILY 07/04/17 Reported Mvi With Minerals (Multivitamins/Minerals) Tab 1 Tab PO DAILY 07/04/17 Reported Slow-Mag Tab (Magnesium Chloride) 64 Mg Tabcr 2 Tabs PO DAILY 07/04/17 Reported Ferrous Sulfate 325 Mg Tab 325 Mg PO BID 07/04/17 Reported Trazodone (Trazodone HCl) 50 Mg Tab 50 Mg PO HS PRN 12/18/13 Reported Review of Systems Constitutional: No fever, No chills Respiratory: No cough, No shortness of breath Cardiac: No chest pain Abdomen: No pain, No nausea, No vomiting Neuro: + see HPI Physical Exam Date Time Temp Pulse Resp B/P (MAP) Pulse Ox O2 Delivery O2 Flow Rate FiO2 07/05/17 08:17 36.7 60 18 160/100 (120) 97 Room Air 07/05/17 08:00 Room Air 07/05/17 02:29 96 Room Air 07/04/17 23:00 65 18 166/97 96 Room Air 07/04/17 22:14 66 07/04/17 21:39 61 18 149/99 98 Room Air 07/04/17 19:42 72 140/92 98 Room Air 07/04/17 18:15 60 07/04/17 17:57 Room Air 07/04/17 17:53 37.0 60 16 146/116 97 Room Air General Appearance: WD/WN, no apparent distress Eyes: normal inspection, PERRL, EOMI Neck: supple, no JVD, trachea midline Respiratory/Chest: normal breath sounds, no respiratory distress, no accessory muscle use Cardiovascular: regular rate, rhythm, no gallop, no murmur Abdomen: normal bowel sounds, non tender, soft Extremities: normal inspection, no pedal edema, no calf tenderness Neurologic/Psych: alert, normal mood/affect, oriented x 3 Skin: normal color, no jaundice, no rash Laboratory Results Last 24 Hours Test 07/04/17 18:40 07/04/17 19:08 07/04/17 19:55 07/04/17 22:25 White Blood Count 5.30 K/uL Red Blood Count 5.08 M/uL Hemoglobin 16.0 g/dL Hematocrit 46.8 % Mean Corpuscular Volume 92.1 fL Mean Corpuscular Hemoglobin 31.5 pg Mean Corpuscular Hemoglobin Concent 34.2 g/dl Platelet Count 237 K/uL Mean Platelet Volume 9.8 fL Neutrophils (%) (Auto) 51.5 % Lymphocytes (%) (Auto) 41.1 % Monocytes (%) (Auto) 6.2 % Eosinophils (%) (Auto) 0.4 % Basophils (%) (Auto) 0.6 % Neutrophils # (Auto) 2.73 K/uL Lymphocytes # (Auto) 2.18 K/uL Monocytes # (Auto) 0.33 K/uL Eosinophils # (Auto) 0.02 K/uL Basophils # (Auto) 0.03 K/uL RDW Standard Deviation 48.0 fL RDW Coefficient of Variation 14.2 % Immature Granulocyte % (Auto) 0.2 % Immature Granulocyte # (Auto) 0.01 K/uL Erythrocyte Sedimentation Rate 2 mm/hr Prothrombin Time 12.5 SECONDS Prothromb Time International Ratio 1.2 Sodium Level 138 mmol/L Potassium Level 4.3 mmol/L Chloride Level 105 mmol/L Carbon Dioxide Level 29 mmol/L Anion Gap 4.0 mmol/L Blood Urea Nitrogen 6 mg/dl Creatinine 0.67 mg/dl Est Creatinine Clear Calc Drug Dose 156.0 ml/min Estimated GFR () 141.3 Estimated GFR (Non- 121.9 BUN/Creatinine Ratio 9.6 Random Glucose 146 mg/dl Estimated Average Glucose 212 mg/dl Hemoglobin A1c 9.0 % Calcium Level 8.5 mg/dl Magnesium Level 1.9 mg/dl Total Bilirubin 0.4 mg/dl Direct Bilirubin 0.1 mg/dl Aspartate Amino Transf (AST/SGOT) 62 U/L Alanine Aminotransferase (ALT/SGPT) 44 U/L Alkaline Phosphatase 117 U/L Ammonia 141.8 umol/L Troponin I < 0.015 ng/ml C-Reactive Protein < 0.29 mg/dl Total Protein 7.4 gm/dl Albumin 3.4 gm/dl Globulin 4.0 gm/dl Albumin/Globulin Ratio 0.9 Lipase 39 U/L Procalcitonin < 0.05 ng/ml Thyroid Stimulating Hormone (TSH) 0.637 uIu/ml Lactic Acid Level 2.8 mmol/L Urine Color YELLOW Urine Appearance CLEAR Urine pH >= 9.0 Urine Specific [place] 1.013 Urine Protein 1+ Urine Glucose (UA) NEG Urine Ketones NEG Urine Occult Blood NEG Urine Nitrite NEG Urine Bilirubin NEG Urine Urobilinogen NEG Urine Leukocyte Esterase NEG Urine WBC (Auto) 0 /hpf Urine RBC (Auto) 0-4 /hpf Urine Hyaline Casts (Auto) 0 /lpf Urine Epithelial Cells (Auto) 10-20 /lpf Urine Bacteria (Auto) NEG Urine Opiates Screen NEG Urine Methadone, Qualitative NEG Urine Barbiturates NEG Urine Phencyclidine (PCP) Level NEG Ur Amphetamine/Methamphetamine NEG MDMA (Ecstasy) Screen NEG Urine Benzodiazepines Screen NEG Urine Cocaine Metabolite NEG Urine Marijuana (THC) NEG Ethyl Alcohol mg/dL 13.0 mg/dl Test 07/04/17 22:51 07/05/17 00:31 07/05/17 04:40 07/05/17 07:52 Bedside Glucose 137 mg/dl 97 mg/dl Lactic Acid Level 3.3 mmol/L 2.0 mmol/L White Blood Count 6.28 K/uL Red Blood Count 4.21 M/uL Hemoglobin 13.5 g/dL Hematocrit 39.1 % Mean Corpuscular Volume 92.9 fL Mean Corpuscular Hemoglobin 32.1 pg Mean Corpuscular Hemoglobin Concent 34.5 g/dl Platelet Count 156 K/uL Mean Platelet Volume 10.0 fL Neutrophils (%) (Auto) 42.7 % Lymphocytes (%) (Auto) 47.8 % Monocytes (%) (Auto) 8.1 % Eosinophils (%) (Auto) 0.6 % Basophils (%) (Auto) 0.5 % Neutrophils # (Auto) 2.68 K/uL Lymphocytes # (Auto) 3.00 K/uL Monocytes # (Auto) 0.51 K/uL Eosinophils # (Auto) 0.04 K/uL Basophils # (Auto) 0.03 K/uL RDW Standard Deviation 48.8 fL RDW Coefficient of Variation 14.4 % Immature Granulocyte % (Auto) 0.3 % Immature Granulocyte # (Auto) 0.02 K/uL Sodium Level 144 mmol/L Potassium Level 4.1 mmol/L Chloride Level 114 mmol/L Carbon Dioxide Level 23 mmol/L Anion Gap 7.0 mmol/L Blood Urea Nitrogen 7 mg/dl Creatinine 0.70 mg/dl Est Creatinine Clear Calc Drug Dose 147.7 ml/min Estimated GFR () 138.8 Estimated GFR (Non- 119.7 BUN/Creatinine Ratio 10.2 Random Glucose 108 mg/dl Calcium Level 7.6 mg/dl Ammonia 54.0 umol/L Impression Patient is a 37 year old male seen for elevated ammonia level, confusion. He had hx of ETOH abuse, fatty liver, chronic pancreatitis on imaging studies. Was drinking ETOH night prior to ED presentation, and woke up w n/v/diarrhea, confused. ETOH level 16 on presentation, ammonia level 141, down to [address] head, abd/pelvis, CXR negative for acute processes. Cdiff negative, Blood cx pending. Plan - Never had any imaging study which showed liver cirrhosis. LFTs fairly normal, normal platelet and coags. Likely his fatty liver and chronic pancreatitis are from his ETOH abuse. I had a discussion with him about risk of cirrhosis development and encouraged him to quit ETOH use, seek ETOH rehab program. He said will be going to a program soon needed for his DUI probation. - Would monitor for DTs, give banana bag IVF support, f/u on infectious workup ( blood cx). May DC on low dose Lactulose 30g daily if he has constipation. - Need close f/u on DC to prevent ETOH relapse and to monitor liver disease. - Advance diet as tolerated. I performed a history and physical examination of the patient, including specifically on physical exam - abdomen is soft.I have discussed the patient's management with Corina. Please refer to the GLASS TECHNICIAN's note for the documented findings and plan of care. Patient with elevated Ammonia level and alcohol intoxication. His confusion was probably related to alcohol. There is no evidence of liver cirrhosis. Ammonia level is nonspecific. Now back to baseline and fully oriented. Will need OP follow up and Fibroscan. Alcohol cessation. Thiamin supplement.
[2017-07-05 11:33] VITALS: Ht 177.8 cm; Wt 73.8 kg
[2017-07-05] MEDS: KETOROLAC TROMETHAMINE 15 MG/ML VIAL IV. PRN ×2 (11:48→19:13)
[2017-07-05 15:32] VITALS: BP 182/112; PULSE 55; TEMP 36.9; O2SAT 100
[2017-07-05] MEDS ORDERED: OXYCODONE/ACETAMINOPHEN 5-325 TAB ONE (15:38)
[2017-07-05 17:00] VITALS: BP 192/107
[2017-07-05] MEDS ORDERED: CLONIDINE HCL 0.1 MG TAB PO PRN (17:00)
--- NOTE | 2017-07-05 17:20 | Progress Note ---
Medicine Progress Note Date & Time of Visit: Jul 05, 2017 at 17:20. Subjective seen resting in bed, not in distress brother visiting denies confusion, had 3 bms today main symptom is bilateral feet pain- burning, sharp denies headache, chest pain, dyspnea, palpitations, dizziness pleasant, cooperative denies other symptoms Objective Last 8 Hrs Date Time Temp Pulse Resp B/P (MAP) Pulse Ox O2 Delivery O2 Flow Rate FiO2 07/05/17 17:00 192/107 (135) 07/05/17 15:32 36.9 55 18 182/112 (135) 100 Room Air Physical Exam: General- oriented x 3, not in distress, speaks in sentences with no effort Head- atraumatic Eyes- PERRL, EOMI, anicteric ENT- oropharynx clear Neck- supple, no JVD, no adenopathy, no thyromegaly; carotids +2/2 Lungs- clear breath sounds bilaterally, no rales/wheezes Heart- regular rhythm; no murmur, normal rate Abdomen- normal bowel sounds, soft, nontender Extremities- no pretibial edema, no calf tenderness; peripheral pulses intact s/p Left big toe amputation- sutures in place- no signs of infection Neuro- alert, oriented x 3; no gross focal deficits Skin- warm & dry Laboratory Results: Last 24 Hours Test 07/04/17 18:40 07/04/17 19:08 07/04/17 19:55 07/04/17 22:25 White Blood Count 5.30 K/uL Red Blood Count 5.08 M/uL Hemoglobin 16.0 g/dL Hematocrit 46.8 % Mean Corpuscular Volume 92.1 fL Mean Corpuscular Hemoglobin 31.5 pg Mean Corpuscular Hemoglobin Concent 34.2 g/dl Platelet Count 237 K/uL Mean Platelet Volume 9.8 fL Neutrophils (%) (Auto) 51.5 % Lymphocytes (%) (Auto) 41.1 % Monocytes (%) (Auto) 6.2 % Eosinophils (%) (Auto) 0.4 % Basophils (%) (Auto) 0.6 % Neutrophils # (Auto) 2.73 K/uL Lymphocytes # (Auto) 2.18 K/uL Monocytes # (Auto) 0.33 K/uL Eosinophils # (Auto) 0.02 K/uL Basophils # (Auto) 0.03 K/uL RDW Standard Deviation 48.0 fL RDW Coefficient of Variation 14.2 % Immature Granulocyte % (Auto) 0.2 % Immature Granulocyte # (Auto) 0.01 K/uL Erythrocyte Sedimentation Rate 2 mm/hr Prothrombin Time 12.5 SECONDS Prothromb Time International Ratio 1.2 Sodium Level 138 mmol/L Potassium Level 4.3 mmol/L Chloride Level 105 mmol/L Carbon Dioxide Level 29 mmol/L Anion Gap 4.0 mmol/L Blood Urea Nitrogen 6 mg/dl Creatinine 0.67 mg/dl Est Creatinine Clear Calc Drug Dose 156.0 ml/min Estimated GFR () 141.3 Estimated GFR (Non- 121.9 BUN/Creatinine Ratio 9.6 Random Glucose 146 mg/dl Estimated Average Glucose 212 mg/dl Hemoglobin A1c 9.0 % Calcium Level 8.5 mg/dl Magnesium Level 1.9 mg/dl Total Bilirubin 0.4 mg/dl Direct Bilirubin 0.1 mg/dl Aspartate Amino Transf (AST/SGOT) 62 U/L Alanine Aminotransferase (ALT/SGPT) 44 U/L Alkaline Phosphatase 117 U/L Ammonia 141.8 umol/L Troponin I < 0.015 ng/ml C-Reactive Protein < 0.29 mg/dl Total Protein 7.4 gm/dl Albumin 3.4 gm/dl Globulin 4.0 gm/dl Albumin/Globulin Ratio 0.9 Lipase 39 U/L Procalcitonin < 0.05 ng/ml Thyroid Stimulating Hormone (TSH) 0.637 uIu/ml Lactic Acid Level 2.8 mmol/L Urine Color YELLOW Urine Appearance CLEAR Urine pH >= 9.0 Urine Specific [place] 1.013 Urine Protein 1+ Urine Glucose (UA) NEG Urine Ketones NEG Urine Occult Blood NEG Urine Nitrite NEG Urine Bilirubin NEG Urine Urobilinogen NEG Urine Leukocyte Esterase NEG Urine WBC (Auto) 0 /hpf Urine RBC (Auto) 0-4 /hpf Urine Hyaline Casts (Auto) 0 /lpf Urine Epithelial Cells (Auto) 10-20 /lpf Urine Bacteria (Auto) NEG Urine Opiates Screen NEG Urine Methadone, Qualitative NEG Urine Barbiturates NEG Urine Phencyclidine (PCP) Level NEG Ur Amphetamine/Methamphetamine NEG MDMA (Ecstasy) Screen NEG Urine Benzodiazepines Screen NEG Urine Cocaine Metabolite NEG Urine Marijuana (THC) NEG Ethyl Alcohol mg/dL 13.0 mg/dl Test 07/04/17 22:51 07/05/17 00:31 07/05/17 04:40 07/05/17 07:52 Bedside Glucose 137 mg/dl 97 mg/dl Lactic Acid Level 3.3 mmol/L 2.0 mmol/L White Blood Count 6.28 K/uL Red Blood Count 4.21 M/uL Hemoglobin 13.5 g/dL Hematocrit 39.1 % Mean Corpuscular Volume 92.9 fL Mean Corpuscular Hemoglobin 32.1 pg Mean Corpuscular Hemoglobin Concent 34.5 g/dl Platelet Count 156 K/uL Mean Platelet Volume 10.0 fL Neutrophils (%) (Auto) 42.7 % Lymphocytes (%) (Auto) 47.8 % Monocytes (%) (Auto) 8.1 % Eosinophils (%) (Auto) 0.6 % Basophils (%) (Auto) 0.5 % Neutrophils # (Auto) 2.68 K/uL Lymphocytes # (Auto) 3.00 K/uL Monocytes # (Auto) 0.51 K/uL Eosinophils # (Auto) 0.04 K/uL Basophils # (Auto) 0.03 K/uL RDW Standard Deviation 48.8 fL RDW Coefficient of Variation 14.4 % Immature Granulocyte % (Auto) 0.3 % Immature Granulocyte # (Auto) 0.02 K/uL Sodium Level 144 mmol/L Potassium Level 4.1 mmol/L Chloride Level 114 mmol/L Carbon Dioxide Level 23 mmol/L Anion Gap 7.0 mmol/L Blood Urea Nitrogen 7 mg/dl Creatinine 0.70 mg/dl Est Creatinine Clear Calc Drug Dose 147.7 ml/min Estimated GFR () 138.8 Estimated GFR (Non- 119.7 BUN/Creatinine Ratio 10.2 Random Glucose 108 mg/dl Calcium Level 7.6 mg/dl Ammonia 54.0 umol/L Test 07/05/17 12:14 Bedside Glucose 100 mg/dl Date/Time Source Procedure Growth Status 07/04/17 19:28 Blood Blood Culture Pending Received 07/04/17 18:49 Blood Blood Culture Pending Received 07/05/17 03:55 Stool C.difficile Toxin B Gene (PCR) - Final No C. difficile toxin B gene detected Complete Assessment & Plan Hepatic encephalopathy Possible alcoholic liver disease - hepatomegaly, severe hepatic cirrhosis, splenomegaly on previous CT imaging studies from last year -- resolved -- ammonia improved to 54 -- GI consulted, appreciate the recommendations -- discharge on lactulose 30ML daily ff up with GI as outpatient -- DT precautions Bilateral Feet Pain, likely Neuropathy -- increase Gabapentin to 1200 BID -- PRN [place], Morphine - will limit duration, patient rates pain /10, BP systolic 192 Depression -- discussed with patient states his mood is fine, denies worsening of depression symptoms would like to stay with Celexa Hx confinement for respiratory failure sp intubation, septic shock 2 to Acinetobacter baumannii pneumonia (2016) osteomyelitis/gangrene, left toe (possibly from pressor rx) sp a surgery (05/2017 ) sp Augmentin Rx healing well as per family. Diarrhea, rule out recurrent Clostridium difficile. - NO C diff Hypertension. Stable DM2, insulin requiring, well controlled as of recent outpatient HgA1c of 6.2 last 02/2017. Ongoing tobacco abuse. DVT prophylaxis. Lovenox subcutaneous Full code as per patient's brother. Disposition - possible d/c home tomorrow Current Inpatient Medications: Current Inpatient Medications Medications (Trade) Dose Ordered Sig/Elidia Route Start Time Stop Time Status Last Admin Dose Admin Enoxaparin Sodium (Lovenox Inj) 40 mg Q24H SQ 07/05/17 08:00 08/04/17 07:59 Acetaminophen (Tylenol Tab) 325 mg Q6H PRN PO 07/04/17 22:30 08/03/17 22:29 Insulin Aspart (novoLOG ASPART) SLIDING SCALE If C... ACHS SC 07/05/17 06:30 08/04/17 06:59 Glucose (Glucose 40% Gel) 15-30 GRAMS 15 GRAMS... UD PRN PO 07/04/17 22:30 08/03/17 22:29 Glucose (Glucose Chew Tab) 4-8 Tablets 4 Tabl... UD PRN PO 07/04/17 22:30 08/03/17 22:29 Dextrose (Dextrose 50% 50ML Syringe) 25-50ML OF 50% DW IV FOR... UD PRN IV 07/04/17 22:30 08/03/17 22:29 Glucagon (Glucagon Inj) 1 mg UD PRN SQ 07/04/17 22:30 08/03/17 22:29 Prochlorperazine Edisylate 5 mg/ Syringe 5 ml @ 5 mls/min Q6H PRN IV 07/04/17 22:45 08/03/17 22:44 Ketorolac Tromethamine (Toradol Inj) 15 mg Q6H PRN IV. 07/04/17 22:45 07/09/17 22:44 07/05/17 11:48 15 MG Lorazepam (Ativan Inj) PRN Dosing -Active Protocol Q1H PRN IV 07/04/17 22:45 08/03/17 22:44 Thiamine HCl (Vitamin B-1 Tab) 100 mg QAM PO 07/06/17 08:00 08/05/17 08:59 Multivitamins (Multivitamin Tab) 1 tab QAM PO 07/06/17 08:00 08/05/17 08:59 Folic Acid (Folvite Tab) 1 mg QAM PO 07/06/17 08:00 08/05/17 08:59 Nicotine (Nicoderm Cq 21MG Patch) 1 patch QAM TD 07/05/17 08:00 08/04/17 08:59 07/05/17 07:25 1 PATCH Miscellaneous (Remove Nicoderm Patch) 1 ea HS N/A 07/05/17 21:00 08/04/17 20:59 Aspirin (Ecotrin Tab) 81 mg DAILY PO 07/05/17 08:00 08/04/17 08:59 07/05/17 07:25 81 MG Ferrous Sulfate (Feosol Tab) 325 mg BID PO 07/05/17 08:00 08/04/17 08:59 07/05/17 07:24 325 MG Insulin Glargine (Lantus Solostar Pen) 5 units DAILY SC 07/05/17 08:00 08/04/17 08:59 07/05/17 08:33 5 UNITS Metoprolol Tartrate (Lopressor Tab) 12.5 mg BID PO 07/05/17 08:00 08/04/17 08:59 07/05/17 08:23 12.5 MG Pantoprazole Sodium (Protonix Tab) 40 mg QAM PO 07/05/17 08:00 08/04/17 07:59 07/05/17 07:25 40 MG Tramadol HCl (Ultram Tab) 25 mg Q6H PRN PO 07/04/17 23:15 08/03/17 23:14 07/05/17 07:25 25 MG Gabapentin (Neurontin Cap) 600 mg TID PO 07/05/17 08:00 08/04/17 07:59 07/05/17 14:11 600 MG Acetaminophen/ Hydrocodone Bitart ([place] 5/325 Tab) 1 tab Q6H PRN PO 07/05/17 15:45 07/19/17 15:44 Clonidine HCl (Catapres Tab) 0.1 mg Q6H PRN PO 07/05/17 17:00 08/04/17 16:59
[2017-07-05] MEDS ORDERED: MoRPHine SULFATE 4 MG/ML 1 ML CARP\\VIAL IV PRN ×2 (17:30→18:30)
[2017-07-05] MEDS ORDERED: LORAZEPAM INJ 0.5 MG in SYRINGE 0.25 ML IV PRN (18:15)
[2017-07-05] MEDS ORDERED: OXYCODONE/ACETAMINOPHEN 5-325 TAB PO ONE (19:30)
[2017-07-05 19:48] VITALS: BP 168/102; PULSE 58; TEMP 36.7; O2SAT 100
[2017-07-05] MEDS ORDERED: LORAZEPAM INJ 0.5 MG in SYRINGE 0.75 ML IV PRN (20:00)
[2017-07-05] MEDS: GABAPENTIN 600 MG TAB PO SCH (21:03)
[2017-07-05 23:19] VITALS: BP 138/93; PULSE 65; TEMP 36.7; O2SAT 97
[2017-07-05] MEDS: HYDROCODONE/ACETAMIN 5/325MG TAB PO PRN (23:51)
[2017-07-06] MEDS: KETOROLAC TROMETHAMINE 15 MG/ML VIAL IV. PRN ×2 (01:18→13:38)
[2017-07-06] MEDS: TRAMADOL HCL 50 MG TAB PO PRN ×2 (03:26→16:32)
[2017-07-06 06:48] VITALS: BP 150/94; PULSE 61; TEMP 36.8; O2SAT 98
[2017-07-06] MEDS: GABAPENTIN 600 MG TAB PO SCH (07:54)
[2017-07-06] MEDS: PANTOprazole SOD 40 MG TAB PO SCH (07:54)
[2017-07-06] MEDS: FERROUS SULFATE 325 MG TAB PO SCH (07:54)
[2017-07-06] MEDS: ASPIRIN 81 MG ECTAB PO SCH (07:54)
[2017-07-06] MEDS: ENOXAPARIN 40 MG/0.4 ML SYR SQ SCH (07:55)
[2017-07-06] MEDS: NICOTINE 21 MG/24 HR TDSY TD SCH (07:55)
[2017-07-06] MEDS: METOPROLOL TARTRATE 25 MG TAB PO SCH (07:55)
[2017-07-06] MEDS ORDERED: THIAMINE HCL 100 MG TAB PO SCH (08:00)
[2017-07-06] MEDS ORDERED: MULTIVITAMIN TAB PO SCH (08:00)
[2017-07-06] MEDS: INSULIN ASPART 100 UNITS/ML 3 ML PEN SC SCH ×2 (08:31→12:55)
[2017-07-06] MEDS: INSULIN GLARGINE SOLOSTAR 100 UNITS/ML 3 ML PEN SC SCH (08:32)
[2017-07-06 09:16] LABS: HEMATOCRIT 46.5 % (42-52); MEAN CORPUSCULAR HGB CONC 34.4 g/dl (32-36); MEAN PLATELET VOLUME 10.3 fL (7.4-10.4); PLATELET COUNT 179 K/uL (130-400); RED CELL DISTRIBUTION WIDTH CV 14.1 % (11.5-14.5); RED CELL DISTRIBUTION WIDTH SD 47.9 fL (36.4-46.3); WHITE BLOOD COUNT 5.89 K/uL (4.8-10.8)
[2017-07-06 09:47] LABS: ALBUMIN 2.9 gm/dl (3.4-5.0); CALCIUM 8.1 mg/dl (8.5-10.1); CREATININE 0.87 mg/dl (0.60-1.40); POTASSIUM 3.9 mmol/L (3.5-5.1)
[2017-07-06] MEDS: HYDROCODONE/ACETAMIN 5/325MG TAB PO PRN (10:15)
--- NOTE | 2017-07-06 11:02 | Gastroenterology Progress Note ---
Progress Note Date of Service: Jul 06, 2017 Subjective Pt evaluation today including: conversation w/ patient, physical exam, chart review, lab review, review of inpatient medication list Pt AAOx3 today, no signs of DTs or asterixis. NH3 level 46. Only complaint is ongoing pain on toe amputation site. Denies any abd pain, n/v. Review of Systems Constitutional: No fever, No chills Cardiac: No chest pain Abdomen: No pain, No nausea, No vomiting Medications Current Inpatient Medications Medications (Trade) Dose Ordered Sig/Elidia Route Start Time Stop Time Status Last Admin Dose Admin Enoxaparin Sodium (Lovenox Inj) 40 mg Q24H SQ 07/05/17 08:00 08/04/17 07:59 Acetaminophen (Tylenol Tab) 325 mg Q6H PRN PO 07/04/17 22:30 08/03/17 22:29 Insulin Aspart (novoLOG ASPART) SLIDING SCALE If C... ACHS SC 07/05/17 06:30 08/04/17 06:59 07/06/17 08:31 4 UNITS Glucose (Glucose 40% Gel) 15-30 GRAMS 15 GRAMS... UD PRN PO 07/04/17 22:30 08/03/17 22:29 Glucose (Glucose Chew Tab) 4-8 Tablets 4 Tabl... UD PRN PO 07/04/17 22:30 08/03/17 22:29 Dextrose (Dextrose 50% 50ML Syringe) 25-50ML OF 50% DW IV FOR... UD PRN IV 07/04/17 22:30 08/03/17 22:29 Glucagon (Glucagon Inj) 1 mg UD PRN SQ 07/04/17 22:30 08/03/17 22:29 Prochlorperazine Edisylate 5 mg/ Syringe 5 ml @ 5 mls/min Q6H PRN IV 07/04/17 22:45 08/03/17 22:44 Ketorolac Tromethamine (Toradol Inj) 15 mg Q6H PRN IV. 07/04/17 22:45 07/09/17 22:44 07/06/17 01:18 15 MG Lorazepam (Ativan Inj) PRN Dosing -Active Protocol Q1H PRN IV 07/04/17 22:45 08/03/17 22:44 Thiamine HCl (Vitamin B-1 Tab) 100 mg QAM PO 07/06/17 08:00 08/05/17 08:59 07/06/17 07:55 100 MG Multivitamins (Multivitamin Tab) 1 tab QAM PO 07/06/17 08:00 08/05/17 08:59 07/06/17 07:55 1 TAB Folic Acid (Folvite Tab) 1 mg QAM PO 07/06/17 08:00 08/05/17 08:59 07/06/17 07:54 1 MG Nicotine (Nicoderm Cq 21MG Patch) 1 patch QAM TD 07/05/17 08:00 08/04/17 08:59 07/06/17 07:55 1 PATCH Miscellaneous (Remove Nicoderm Patch) 1 ea HS N/A 07/05/17 21:00 08/04/17 20:59 07/05/17 21:59 1 EA Aspirin (Ecotrin Tab) 81 mg DAILY PO 07/05/17 08:00 08/04/17 08:59 07/06/17 07:54 81 MG Ferrous Sulfate (Feosol Tab) 325 mg BID PO 07/05/17 08:00 08/04/17 08:59 07/06/17 07:54 325 MG Insulin Glargine (Lantus Solostar Pen) 5 units DAILY SC 07/05/17 08:00 08/04/17 08:59 07/06/17 08:32 5 UNITS Metoprolol Tartrate (Lopressor Tab) 12.5 mg BID PO 07/05/17 08:00 08/04/17 08:59 07/06/17 07:55 12.5 MG Pantoprazole Sodium (Protonix Tab) 40 mg QAM PO 07/05/17 08:00 08/04/17 07:59 07/06/17 07:54 40 MG Tramadol HCl (Ultram Tab) 25 mg Q6H PRN PO 07/04/17 23:15 08/03/17 23:14 07/06/17 03:26 25 MG Acetaminophen/ Hydrocodone Bitart ([place] 5/325 Tab) 1 tab Q6H PRN PO 07/05/17 15:45 07/19/17 15:44 07/06/17 10:15 1 TAB Clonidine HCl (Catapres Tab) 0.1 mg Q6H PRN PO 07/05/17 17:00 08/04/17 16:59 07/05/17 17:23 0.1 MG Gabapentin (Neurontin Tab) 1,200 mg BID PO 07/05/17 20:00 08/04/17 07:59 07/06/17 07:54 1,200 MG Morphine Sulfate (MoRPHine SULFATE INJ) 4 mg Q12H PRN IV 07/05/17 18:30 07/19/17 17:29 07/06/17 07:11 4 MG Lorazepam 0.5 mg/ Syringe 1 ml @ 0.5 mls/min Q4H PRN IV 07/05/17 20:00 08/04/17 18:14 07/05/17 20:32 0.5 MLS/MIN Objective Vital Signs Date Time Temp Pulse Resp B/P (MAP) Pulse Ox O2 Delivery O2 Flow Rate FiO2 07/06/17 08:00 Room Air 07/06/17 06:48 36.8 61 17 150/94 (112) 98 Room Air 07/06/17 00:10 Room Air 07/05/17 23:19 36.7 65 19 138/93 (108) 97 Room Air 07/05/17 19:48 36.7 58 18 168/102 (124) 100 Room Air 07/05/17 17:00 192/107 (135) 07/05/17 16:00 Room Air 07/05/17 15:32 36.9 55 18 182/112 (135) 100 Room Air Physical Exam General Appearance: WD/WN, no apparent distress Eyes: normal inspection, PERRL, EOMI Neck: supple, no JVD, trachea midline Respiratory/Chest: normal breath sounds, no respiratory distress, no accessory muscle use Cardiovascular: regular rate, rhythm, no gallop, no murmur Abdomen: normal bowel sounds, non tender, soft Extremities: normal inspection, no pedal edema, no calf tenderness Neurologic/Psych: alert, normal mood/affect, oriented x 3 Skin: normal color, no jaundice, no rash Laboratory Results Last 24 Hours Test 07/05/17 12:14 07/05/17 16:34 07/05/17 20:18 07/06/17 06:14 Bedside Glucose 100 mg/dl 134 mg/dl 248 mg/dl White Blood Count 5.89 K/uL Red Blood Count 5.00 M/uL Hemoglobin 16.0 g/dL Hematocrit 46.5 % Mean Corpuscular Volume 93.0 fL Mean Corpuscular Hemoglobin 32.0 pg Mean Corpuscular Hemoglobin Concent 34.4 g/dl Platelet Count 179 K/uL Mean Platelet Volume 10.3 fL RDW Standard Deviation 47.9 fL RDW Coefficient of Variation 14.1 % Ammonia 46.0 umol/L Test 07/06/17 07:42 07/06/17 08:44 Bedside Glucose 153 mg/dl Sodium Level 134 mmol/L Potassium Level 3.9 mmol/L Chloride Level 103 mmol/L Carbon Dioxide Level 21 mmol/L Anion Gap 10.0 mmol/L Blood Urea Nitrogen 9 mg/dl Creatinine 0.87 mg/dl Est Creatinine Clear Calc Drug Dose 118.9 ml/min Estimated GFR () 126.9 Estimated GFR (Non- 109.5 BUN/Creatinine Ratio 9.9 Random Glucose 198 mg/dl Calcium Level 8.1 mg/dl Albumin 2.9 gm/dl Assessment and Plan Patient is a 37 year old male seen for elevated ammonia level, confusion less likely due to hepatic encephalopathy but rather ETOH intoxication. He had hx of ETOH abuse, fatty liver, chronic pancreatitis on imaging studies. Was drinking ETOH night prior to ED presentation, and woke up w n/v/diarrhea, confused. ETOH level 16 on presentation, ammonia level 141, down to [address] head, abd/pelvis, CXR negative for acute processes. Cdiff negative, Blood cx pending. Plans - Never had any imaging study which showed liver cirrhosis. LFTs fairly normal, normal platelet and coags. Likely his fatty liver and chronic pancreatitis are from his ETOH abuse. I had a discussion with him about risk of cirrhosis development and encouraged him to quit ETOH use, seek ETOH rehab program. He said will be going to a program soon needed for his DUI probation. - Would monitor for DTs, give banana bag IVF support, f/u on infectious workup ( blood cx). - Need close f/u on DC to prevent ETOH relapse and to monitor liver disease, to also arrange for Fibroscan to quantify fibrosis. - No need to monitor ammonia levels. I have discussed the patient's management with Corina. Please refer to the WAREHOUSE ORDER PICKER' s note for the documented findings and plan of care. OP follow up for alcoholic liver disease.
[2017-07-06 13:07] VITALS: BP 127/87
--- NOTE | 2017-07-06 13:25 | Progress Note ---
Medicine Progress Note Date & Time of Visit: Jul 06, 2017 at 13:12. Subjective seen resting in bed, comfortable states he feels much better today no confusion, abdominal pain, nausea/vomiting bilateral foot pain improving denies other symptoms states he is ready for discharge today Objective Last 8 Hrs Date Time Temp Pulse Resp B/P (MAP) Pulse Ox O2 Delivery O2 Flow Rate FiO2 07/06/17 13:07 127/87 (100) 07/06/17 08:00 Room Air 07/06/17 06:48 36.8 61 17 150/94 (112) 98 Room Air Physical Exam: General- oriented x 3, not in distress, speaks in sentences with no effort Eyes- anicteric Neck- supple, no JVD Lungs- clear to auscultation bilaterally, no rales/wheezes Heart- regular rhythm; no murmur, normal rate Abdomen- normal bowel sounds, soft, nontender Extremities- no pretibial edema, no calf tenderness; peripheral pulses intact s/p Left big toe amputation- sutures in place- no signs of infection at all, no swelling/tenderness/discharge Neuro- alert, oriented x 3; no gross focal deficits Skin- warm & dry Laboratory Results: Last 24 Hours Test 07/05/17 16:34 07/05/17 20:18 07/06/17 06:14 07/06/17 07:42 Bedside Glucose 134 mg/dl 248 mg/dl 153 mg/dl White Blood Count 5.89 K/uL Red Blood Count 5.00 M/uL Hemoglobin 16.0 g/dL Hematocrit 46.5 % Mean Corpuscular Volume 93.0 fL Mean Corpuscular Hemoglobin 32.0 pg Mean Corpuscular Hemoglobin Concent 34.4 g/dl Platelet Count 179 K/uL Mean Platelet Volume 10.3 fL RDW Standard Deviation 47.9 fL RDW Coefficient of Variation 14.1 % Neutrophils % (Manual) 19.3 % Lymphocytes % (Manual) 71.8 % Monocytes % (Manual) 5.3 % Eosinophils % (Manual) 1.8 % Basophils % (Manual) 1.8 % Neutrophils # (Manual) 1.14 K/uL Total Absolute Neutrophils 1.14 K/uL Lymphocytes # (Manual) 4.23 K/uL Total Absolute Lymphocytes 4.23 K/uL Monocytes # (Manual) 0.31 K/uL Eosinophils # (Manual) 0.11 K/uL Basophils # (Manual) 0.11 K/uL Ammonia 46.0 umol/L Test 07/06/17 08:44 07/06/17 11:14 Sodium Level 134 mmol/L Potassium Level 3.9 mmol/L Chloride Level 103 mmol/L Carbon Dioxide Level 21 mmol/L Anion Gap 10.0 mmol/L Blood Urea Nitrogen 9 mg/dl Creatinine 0.87 mg/dl Est Creatinine Clear Calc Drug Dose 118.9 ml/min Estimated GFR () 126.9 Estimated GFR (Non- 109.5 BUN/Creatinine Ratio 9.9 Random Glucose 198 mg/dl Calcium Level 8.1 mg/dl Albumin 2.9 gm/dl Bedside Glucose 167 mg/dl Assessment & Plan ALTERED MENTAL STATUS, SECONDARY TO ALCOHOL INTOXICATION -- hx of ETOH abuse, fatty liver, chronic pancreatitis on imaging studies. -- ammonia improved from 141 to 40s after [address] head: negative -- back to baseline mental status on hospital day 2 -- GI consulted MARISOL Rajput recommend to ff up as outpatient to quantify liver fibrosis, and monitor fatty liver recommend to undergo alcohol rehab -- placed on alcohol withdrawal protocol, did not show signs of DTs counselled to STOP drinking, patient verbalized agreement Bilateral Feet Pain, likely Neuropathy -- increase Gabapentin to 1200 BID improving monitor as outpatient Depression -- discussed with patient states his mood is fine, denies worsening of depression symptoms would like to stay with Celexa monitor Hx confinement for respiratory failure sp intubation, septic shock 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 - resolved - Negative for C diff Hypertension - BP elevated at one point, likely from pain resolved - continue Metoprolol DM2 insulin requiring, well controlled as of recent outpatient HgA1c of 6.2 last 2016. continue Insulin regimen at home Ongoing tobacco abuse. counselled Disposition dc home today ff up with PCP in 3-5 days Current Inpatient Medications: Current Inpatient Medications Medications (Trade) Dose Ordered Sig/Elidia Route Start Time Stop Time Status Last Admin Dose Admin Enoxaparin Sodium (Lovenox Inj) 40 mg Q24H SQ 07/05/17 08:00 08/04/17 07:59 Acetaminophen (Tylenol Tab) 325 mg Q6H PRN PO 07/04/17 22:30 08/03/17 22:29 Insulin Aspart (novoLOG ASPART) SLIDING SCALE If C... ACHS SC 07/05/17 06:30 08/04/17 06:59 07/06/17 12:55 3 UNITS Glucose (Glucose 40% Gel) 15-30 GRAMS 15 GRAMS... UD PRN PO 07/04/17 22:30 08/03/17 22:29 Glucose (Glucose Chew Tab) 4-8 Tablets 4 Tabl... UD PRN PO 07/04/17 22:30 08/03/17 22:29 Dextrose (Dextrose 50% 50ML Syringe) 25-50ML OF 50% DW IV FOR... UD PRN IV 07/04/17 22:30 08/03/17 22:29 Glucagon (Glucagon Inj) 1 mg UD PRN SQ 07/04/17 22:30 08/03/17 22:29 Prochlorperazine Edisylate 5 mg/ Syringe 5 ml @ 5 mls/min Q6H PRN IV 07/04/17 22:45 08/03/17 22:44 Ketorolac Tromethamine (Toradol Inj) 15 mg Q6H PRN IV. 07/04/17 22:45 07/09/17 22:44 07/06/17 01:18 15 MG Lorazepam (Ativan Inj) PRN Dosing -Active Protocol Q1H PRN IV 07/04/17 22:45 08/03/17 22:44 Thiamine HCl (Vitamin B-1 Tab) 100 mg QAM PO 07/06/17 08:00 08/05/17 08:59 07/06/17 07:55 100 MG Multivitamins (Multivitamin Tab) 1 tab QAM PO 07/06/17 08:00 08/05/17 08:59 07/06/17 07:55 1 TAB Folic Acid (Folvite Tab) 1 mg QAM PO 07/06/17 08:00 08/05/17 08:59 07/06/17 07:54 1 MG Nicotine (Nicoderm Cq 21MG Patch) 1 patch QAM TD 07/05/17 08:00 3/8/18 08:59 07/06/17 07:55 1 PATCH Miscellaneous (Remove Nicoderm Patch) 1 ea HS N/A 07/05/17 21:00 08/04/17 20:59 07/05/17 21:59 1 EA Aspirin (Ecotrin Tab) 81 mg DAILY PO 07/05/17 08:00 08/04/17 08:59 07/06/17 07:54 81 MG Ferrous Sulfate (Feosol Tab) 325 mg BID PO 07/05/17 08:00 08/04/17 08:59 07/06/17 07:54 325 MG Insulin Glargine (Lantus Solostar Pen) 5 units DAILY SC 07/05/17 08:00 08/04/17 08:59 07/06/17 08:32 5 UNITS Metoprolol Tartrate (Lopressor Tab) 12.5 mg BID PO 07/05/17 08:00 08/04/17 08:59 07/06/17 07:55 12.5 MG Pantoprazole Sodium (Protonix Tab) 40 mg QAM PO 07/05/17 08:00 08/04/17 07:59 07/06/17 07:54 40 MG Tramadol HCl (Ultram Tab) 25 mg Q6H PRN PO 07/04/17 23:15 08/03/17 23:14 07/06/17 03:26 25 MG Acetaminophen/ Hydrocodone Bitart ([place] 5/325 Tab) 1 tab Q6H PRN PO 07/05/17 15:45 07/19/17 15:44 07/06/17 10:15 1 TAB Clonidine HCl (Catapres Tab) 0.1 mg Q6H PRN PO 07/05/17 17:00 08/04/17 16:59 07/05/17 17:23 0.1 MG Gabapentin (Neurontin Tab) 1,200 mg BID PO 07/05/17 20:00 08/04/17 07:59 07/06/17 07:54 1,200 MG Morphine Sulfate (MoRPHine SULFATE INJ) 4 mg Q12H PRN IV 07/05/17 18:30 07/19/17 17:29 07/06/17 07:11 4 MG Lorazepam 0.5 mg/ Syringe 1 ml @ 0.5 mls/min Q4H PRN IV 07/05/17 20:00 08/04/17 18:14 07/05/17 20:32 0.5 MLS/MIN
[2017-07-06] MEDS ORDERED: NRN600 PO (13:33)
--- NOTE | 2017-07-06 13:37 | Discharge Instructions ---
Discharge Instructions Date of Service Jul 06, 2017. Admission Reason for Admission: Encephalopathy Discharge Discharge Diagnosis / Problem: ALTERED MENTAL STATUS SECONDARY TO ALCOHOL INTOXICATION Discharge Goals Goal(s): Diagnostic testing, Therapeutic intervention Activity Recommendations Activity Limitations: as noted below (INCREASE ACTIVITY GRADUALLY TOELRATED) Lifting Limitations: until after follow-up appointment Exercise/Sports Limitations: until after follow-up appointment Driving or Machine Use: NO DRIVING UNTIL RE-EVALUATED BY DR. HSU . Instructions / Follow-Up Instructions / Follow-Up PLEASE REVIEW YOUR NEW MEDICATION LIST AND FOLLOW INSTRUCTIONS CAREFULLY. CALL PRIMARY PHYSICIAN IMMEDIATELY IF WITHRECURRENCE/ WORSENING OF SYMPTOMS. NO ALCOHOL, NO SMOKING. FOLLOW UP WITH DR. HSU ON 07/08/17 AT 12:45 PM. FOLLOW UP WITH SURGEON THIS WEEK. Current Hospital Diet Patient's current hospital diet: Diabetes Type 2 Diet Discharge Diet Recommended Diet: AHA Diet (Heart Healthy), Diabetes Type 2 Diet Procedures Procedures Performed: CT HEAD, CT ABDOMEN AND PELVIS Pending Studies Studies pending at discharge: no Laboratory Results Hemoglobin A1c Test 07/04/17 18:40 Range/Units Estimated Average Glucose 212 mg/dl Hemoglobin A1c 9.0 H 4.5-5.6 % Medical Emergencies . Who to Call and When: Medical Emergencies: If at any time you feel your situation is an emergency, please call 911 immediately. . Non-Emergent Contact Non-Emergency issues call your: Primary Care Provider, Tool Crib Manager Call Non-Emergent contact if: you have a fever, your pain is not controlled, your pain is worsening, wound has increased drainage, wound has increased redness, wound has increased pain, you have any medication questions . . "Provider Documentation" section prepared by Gian Hill. . VTE Core Measure Inpt VTE Proph given/why not?: Enoxaparin (Lovenox)SQ
[2017-07-06 16:26] VITALS: BP 127/87; PULSE 61; TEMP 36.8; O2SAT 98
--- NOTE | 2017-07-06 18:49 | Discharge Summary ---
Discharge Summary Date of Service Jul 06, 2017. Discharge Summary Admission Date: Jul 04, 2017 at 21:47 Discharge Date: Jul 06, 2017 Discharge Disposition: Home Principal Diagnosis: ALTERED MENTAL STATUS, SECONDARY TO ALCOHOL INTOXICATION Secondary Diagnoses/Problems: PLEASE REFER TO HOSPITAL COURSE BELOW. Procedures: CT SCAN OF THE ABDOMEN AND PELVIS WITHOUT CONTRAST CLINICAL HISTORY: Vomiting and diarrhea COMPARISON STUDY: 02/03/2017 TECHNIQUE: CT scan of the abdomen and pelvis was performed from the lung bases to the proximal femurs. Images are reviewed in the axial, sagittal, and coronal planes. IV contrast was not administered for this examination. A dose lowering technique was utilized adhering to the principles of ALARA. CT DOSE: 547.14 mGy.cm FINDINGS: Lower chest: There is been marked improvement in the previously identified left basal airspace opacities. There is respiratory motion artifact. Liver: The unenhanced liver is normal in size, contour, and attenuation. There is no intrahepatic biliary ductal dilatation. Gallbladder: Unremarkable. Spleen: Normal in size and attenuation. Pancreas: Unremarkable. Adrenal glands: Unremarkable. Kidneys: The unenhanced kidneys are normal in size without hydronephrosis. There is no contour deforming renal mass lesion. No renal calculi are identified. Bowel: There are no transition zones indicate bowel obstruction. There are no findings to indicate acute appendicitis. There are no findings to indicate acute diverticulitis. Peritoneum: There is no intraperitoneal free air or abdominal ascites. There are small fat-containing hernias Vasculature: The abdominal aorta is normal in course and caliber. Adenopathy: None. Pelvic viscera: The bladder, and pelvic viscera are unremarkable. Skeletal structures: There are old left-sided rib deformities. IMPRESSION: 1. Marked improvement in the previous identified left lower lobe airspace opacities 2. No evidence of bowel obstruction. No evidence of free air 3. No renal, ureteral, or bladder calculi identified 4. No evidence of acute diverticulitis. No evidence of acute appendicitis. CHEST ONE VIEW PORTABLE CLINICAL HISTORY: back pain COMPARISON STUDY: 02/03/2017 FINDINGS: The heart is normal in size. There is no failure. There is borderline elevation left hemidiaphragm. There are minor left basilar airspace opacities. The right lung is clear. There are no significant pleural effusions.[ IMPRESSION: Marked interval improvement in the aeration of the left lung with mild residual left basilar airspace opacities L FOOT 2 VIEWS CLINICAL HISTORY: Infection. Possible osteomyelitis. COMPARISON: None. DISCUSSION: There are postsurgical changes of a first toe amputation at the level of the distal aspect of the proximal phalanx. There is mild nonspecific periostitis. The bones are osteopenic. No air is visualized within the soft tissues. There are no acute fractures. IMPRESSION: Postsurgical changes of a prior first toe amputation. Mild nonspecific periostitis. While likely postsurgical, infection could appear similar. CT HEAD WITHOUT CONTRAST (CT) CLINICAL HISTORY: Altered mental status COMPARISON STUDY: No previous studies for comparison. TECHNIQUE: Axial CT of the brain is performed from the vertex to the skull base. IV contrast was not administered for this examination. A dose lowering technique was utilized adhering to the principles of ALARA. CT DOSE: 537.48 mGy.cm FINDINGS: No intra or extra-axial mass lesions are visualized. There is no CT evidence of acute cortical infarction. There is no evidence of midline shift. There is no acute hemorrhage. No calvarial fractures are visualized. There is no evidence of pathologic ventricular dilatation. There is no evidence of acute sinusitis IMPRESSION: No acute intracranial findings Consultations: GI Dr. Vora/MARISOL Rajput Pending Studies/Follow-Up: Please refer to hospital course below. Medication Reconciliation New Medications: Gabapentin (Gabapentin) 600 Mg Tab 1200 MG PO BID for 30 Days Continued Medications: Aspirin (Aspirin Ec) 81 Mg Tab 81 MG PO DAILY Calcium Carbonate (Antacid) (Calcium Carbonate Extra S) 750 Mg Chw 2 TABS PO BID Citalopram Hydrobromide (Celexa) 40 Mg Tab 40 MG PO DAILY, TAB Ferrous Sulfate (Ferrous Sulfate) 325 Mg Tab 325 MG PO BID Insulin Aspart (Novolog) 100 Units/Ml Inj 15 UNITS SQ TIDM PLUS 3 UNITS FOR EVERY 50 POINTS BLOOD GLUCOSE OVER 150 Insulin Glargine (Lantus) 100 Unit/Ml Inj 30 UNITS SC QPM, VIAL Magnesium Chloride (Slow-Mag Tab) 64 Mg Tabcr 2 TABS PO DAILY, TAB Metoprolol Tartrate (Lopressor) (Lopressor) 25 Mg Tab 12.5 MG PO Q12, TAB Multivitamins/Minerals (Mvi With Minerals) Tab 1 TAB PO DAILY, TAB Omeprazole (Prilosec) 40 Mg Cap 40 MG PO DAILY, CAP Polyethylene Glycol 3350 (Miralax) 1 Pow Pow 17 GM PO BID PRN for Constipation, #255 GM Thiamine Hcl (Vitamin B-1) 100 Mg Tab 100 MG PO DAILY, TAB Tramadol (Ultram) 50 Mg Tab 50 MG PO Q6 PRN for Pain, TAB Trazodone Hcl (Trazodone) 50 Mg Tab 50 MG PO HS PRN for Sleep Discontinued Medications: Amoxicillin & Pot Clavulanate (Augmentin 875-125 mg) 1 Tab Tab 1 TAB PO BID, #14 TAB Gabapentin (Neurontin) 300 Mg Cap 600 MG PO TID, CAP Admission Information HPI (per Admitting provider): History obtained from the patient, family, and records. Limited history from the patient secondary to disoriented state. Medical history significant for HTN, DM2 insulin requiring, ongoing tobacco and alcohol abuse, chronic pain, hx drug abuse as per records, mood disorder, anxiety disorder, history Wernicke's encephalopathy as per records. Recent confinement 01/2017 for septic shock secondary to left lower lobe pneumonia 2 to Acinetobacter pneumonia sp intubation, pressor Rx. Patient developed multiorgan failure. Subsequently transferred to [facility]. Confined from 02/03/2017 to 03/05/2017. He developed empyema which required thoracentesis and VATS. Dry gangrene noted on both feet subsequently noted during confinement attributed to vasopressor use. Pedal gangrene allowed to heal/resorb post hospital discharge . Patient ultimately underwent left first toe transphalangeal amputation 2017 outpatient for early osteomyelitis. CS grew MSSA, enterococcus sensitive to Ampicillin. Patient completed two-week Augmentin course. Foot wound healing well as per outpatient follow-up note with [facility] 2 weeks ago. Local wound care recommended. Last night, the patient became agitated as per partner, upset over problems with "everything." Started drinking alcohol. Early this morning, the patient woke up with achy abdominal pain, nausea, vomiting, diarrhea, nonbloody. In the afternoon, the patient was found to be confused and disoriented by his girlfriend. At the Emergency Room, patient was given given lactulose for possible hepatic encephalopathy. Physical Exam (per Admitting): VITAL SIGNS: Blood pressure was noted to be 146/116, pulse rate 60, RR 16, temp 36.7, sats 98RA GENERAL: Noted to be disoriented. Limited verbal output but follows some commands. Alcoholic fetor. SKIN: Normal color, warm. HEENT: [place] palpebral conjunctivae. No ptosis. Dry mucosa. NECK: Supple, nontender. CHEST: Decreased effort. No tenderness. HEART: Regular rate and rhythm. No murmur. ABDOMEN: Soft, nontender. EXTREMITIES: Dressing on the left foot. No tenderness in legs. NEUROLOGIC: Coherent but disoriented. Gait and stance not assessed. Hospital Course ALTERED MENTAL STATUS, SECONDARY TO ALCOHOL INTOXICATION -- hx of ETOH abuse, fatty liver, chronic pancreatitis on imaging studies. -- CT head: negative -- presented with elevated ammonia which improved from 141 to 40s after 1 dose of lactulose Alcohol level 13.0 -- back to baseline mental status on hospital day 2 -- GI consulted MARISOL Rajput recommend to ff up as outpatient to quantify liver fibrosis, and monitor fatty liver recommend to undergo alcohol rehab -- placed on alcohol withdrawal protocol, did not show signs of DTs counselled to STOP drinking, patient verbalized agreement Bilateral Feet Pain, likely Neuropathy -- increase Gabapentin to 1200 BID improving monitor as outpatient Depression -- discussed with patient states his mood is fine, denies worsening of depression symptoms would like to stay with Celexa monitor Hx confinement for respiratory failure sp intubation - with septic shock 2 to Acinetobacter baumannii pneumonia (2016) Osteomyelitis/gangrene, left toe (possibly from pressor rx) s/p Amputation (2017) -- completed 2 weeks course of Augmentin -- no signs of infection advised to ff up with surgeon this week for suture removal Diarrhea, resolved - Negative for C diff Hypertension - BP elevated at one point, likely from pain resolved - continue Metoprolol DM2 insulin requiring, well controlled as of recent outpatient HgA1c of 6.2 last 2016. continue Insulin regimen at home Ongoing tobacco abuse. counselled Total time spent on discharge = 40 minutes This includes examination of the patient, discharge planning, medication reconciliation, and communication with other providers. Discharge Instructions Discharge Instructions Date of Service Jul 06, 2017. Admission Reason for Admission: Encephalopathy Discharge Discharge Diagnosis / Problem: ALTERED MENTAL STATUS SECONDARY TO ALCOHOL INTOXICATION Discharge Goals Goal(s): Diagnostic testing, Therapeutic intervention Activity Recommendations Activity Limitations: as noted below (INCREASE ACTIVITY GRADUALLY TOELRATED) Lifting Limitations: until after follow-up appointment Exercise/Sports Limitations: until after follow-up appointment Driving or Machine Use: NO DRIVING UNTIL RE-EVALUATED BY DR. HSU . Instructions / Follow-Up Instructions / Follow-Up PLEASE REVIEW YOUR NEW MEDICATION LIST AND FOLLOW INSTRUCTIONS CAREFULLY. CALL PRIMARY PHYSICIAN IMMEDIATELY IF WITHRECURRENCE/ WORSENING OF SYMPTOMS. NO ALCOHOL, NO SMOKING. FOLLOW UP WITH DR. HSU ON 07/08/17 AT 12:45 PM. FOLLOW UP WITH SURGEON THIS WEEK. Current Hospital Diet Patient's current hospital diet: Diabetes Type 2 Diet Discharge Diet Recommended Diet: AHA Diet (Heart Healthy), Diabetes Type 2 Diet Procedures Procedures Performed: CT HEAD, CT ABDOMEN AND PELVIS Pending Studies Studies pending at discharge: no Laboratory Results Hemoglobin A1c Test 07/04/17 18:40 Range/Units Estimated Average Glucose 212 mg/dl Hemoglobin A1c 9.0 H 4.5-5.6 % Medical Emergencies . Who to Call and When: Medical Emergencies: If at any time you feel your situation is an emergency, please call 911 immediately. . Non-Emergent Contact Non-Emergency issues call your: Primary Care Provider, Coach Wirer Call Non-Emergent contact if: you have a fever, your pain is not controlled, your pain is worsening, wound has increased drainage, wound has increased redness, wound has increased pain, you have any medication questions . . "Provider Documentation" section prepared by Gian Hill. . VTE Core Measure Inpt VTE Proph given/why not?: Enoxaparin (Lovenox)SQ
== END 2017-07-06 16:50 | disposition home health service (06) | DRG 897 ==
LOC: EDBD 17:44 → C.EDA 17:45 → C.MS4W 21:47 → ENRESERV 22:29
PROVIDERS: ADMIT Internal Medicine; ATTEND Internal Medicine
DX: F10.129 Alcohol abuse with intoxication, unspecified (principal); K86.1 Other chronic pancreatitis; K76.0 Fatty (change of) liver, not elsewhere classified; R41.82 Altered mental status, unspecified; R19.7 Diarrhea, unspecified; I10 Essential (primary) hypertension; E11.40 Type 2 diabetes mellitus with diabetic neuropathy, unspecified; F32.9 Major depressive disorder, single episode, unspecified; E78.5 Hyperlipidemia, unspecified; F17.200 Nicotine dependence, unspecified, uncomplicated; Z79.4 Long term (current) use of insulin; Z79.82 Long term (current) use of aspirin; Z79.899 Other long term (current) drug therapy; Z87.01 Personal history of pneumonia (recurrent); Z89.412 Acquired absence of left great toe; Z91.041 Radiographic dye allergy status

== ENCOUNTER 2017-08-01 07:13 | Day surgery (SDC) | payer OTHER ==
[2017-07-28 14:40] VITALS: BMI 23.0
[~2017-08-01] VITALS: Ht 177.8 cm; Wt 75.0 kg
[~2017-08-01 07:13] MED LIST changes: -AMLO-114 PO; +ASPI81TA28 PO; -ATOR-54 PO; -ATRINS INH; +BUPR1SUB23 PO; -BUPR1SUB23 SL; +CALC1CHW90 PO; +CEFAZOLIN 2000MG IV PUSH 15 ML IV SCH; +FRRS300 PO; -GABA-113 PO; +GABA-1220 PO; -GLIP-197 PO; -HYDR25TA4 PO; +INSDGI SC; -INSDGIPEN SC; +LACTATED RINGER'S 1000ML 1,000 ML IV SCH; -LSN40 PO; -METF1000 PO; +METO25TA56 PO; +NAPR1TAB9 PO; +NVLG SQ; +OMEP40CA41 PO; +POLY335019 PO; -POTTAB2 PO; -PRLSR20 PO; -Piperacill/Tazobac Consult; -RANI300T2 PO; +SLWMEC PO; -SUCR1TAB29 PO; -Vancomycin Consult Active; -XPNINS1255 INH; -[UNRECOGNIZED DRUG - CODE] SQ
[2017-08-01 08:05] VITALS: BP 124/68; PULSE 64; TEMP 37.1; O2SAT 95; Ht 177.8 cm; Wt 75.0 kg
[2017-08-01] MEDS ORDERED: PROPOFOL IV EMULSION 10 MG/ML 20 ML VIAL IV ONE (08:16)
[2017-08-01] MEDS ORDERED: LIDOCAINE HCL 2% 2 ML VIAL (20MG/ML) ONE (08:16)
[2017-08-01] MEDS ORDERED: DEXAMETHASONE SOD INJ 4 MG/ML VIAL ONE (08:16)
[2017-08-01] MEDS ORDERED: ONDANSETRON INJ 2 MG/ML 2 ML VIAL ONE (08:16)
[2017-08-01] MEDS ORDERED: MIDAZOLAM HCL 1 MG/ML 2ML VIAL ONE (08:17)
[2017-08-01] MEDS ORDERED: FENTANYL CITRATE INJ 50 MCG/1 ML 2 ML VIAL ONE ×2 (08:17→09:09)
--- NOTE | 2017-08-01 08:23 | History & Physical Bridge Note ---
H&P Re-Evaluation Bridge Note: I have examined the patient, reviewed the History & Physical and in the interval since the performance of the History & Physical I have noted the following changes of clinical significance: No changes noted
[2017-08-01] MEDS ORDERED: BUPIVACAINE 0.5 % 5 MG/1 ML MPF 30ML VIAL ONE (08:26)
[2017-08-01] MEDS ORDERED: LABETALOL HCL IV 5 MG/ML 20ML IV PRN (08:30)
[2017-08-01] MEDS ORDERED: KETOROLAC TROMETHAMINE 30 MG/ML VIAL IV. PRN (08:30)
[2017-08-01] MEDS ORDERED: ONDANSETRON INJ 2 MG/ML 2 ML VIAL IV PRN ×2 (08:30→10:15)
[2017-08-01] MEDS ORDERED: ATROPINE SULFATE 0.1 MG/ML 5ML SYR IV PRN (08:30)
[2017-08-01] MEDS ORDERED: ACETAMINOPHEN 1000 MG/100 ML IV IV ONE (08:32)
[2017-08-01] MEDS ORDERED: KETAMINE HCL INJ 50 MG/ML 10 ML VIAL ONE (08:53)
[2017-08-01] MEDS ORDERED: SODIUM CHLORIDE 0.9% 1000ML 1,000 ML IV SCH (10:03)
--- NOTE | 2017-08-01 10:07 | [facility] Post Operative Brief Note ---
Immediate Operative Summary Operative Date Aug 01, 2017. Pre-Operative Diagnosis Right Inguinal Hernia Post-Operative Diagnosis Right Inguinal Hernia Procedure(s) Performed Right Inguinal Hernia Repair with Mesh Surgeon Dr. Buzz Ibanez Flux Plant Operator Surgeon(s) Diane Frank PA-C Estimated Blood Loss 5cc Findings Consistent with Post-Op Diagnosis Specimens As Per Surgeon None Drains None Anesthesia Type General Complication(s) none Disposition Disposition: Recovery Room / PACU
--- NOTE | 2017-08-01 10:10 | Discharge Instructions ---
Discharge Instructions Date of Service Aug 01, 2017. Admission Reason for Admission: Right Inguinal Hernia Discharge Discharge Diagnosis / Problem: Same Discharge Goals Goal(s): Decrease discomfort Activity Recommendations Activity Limitations: per Instructions/Follow-up section Shower/Bathe: tomorrow (Shower only) . Instructions / Follow-Up Instructions / Follow-Up ACTIVITY RECOMMENDATIONS: * Walk as much as possible. * No heavy lifting (>10 lbs.) for 6 weeks. SPECIAL CARE INSTRUCTIONS: * Ice to hernia repair site on and off until bedtime tonight. * May shower in 24 hours. Let water run over area and pat dry. * Leave steri strips on for one week. * Call the surgeon's office with any questions or concerns - (ex. temperature higher than 101 degrees F, excessive bleeding or pain). MEDICATIONS: Resume previous medications unless instructed otherwise by your surgeon. * Ibuprofen 600 mg every 6 hours with food * Other pain medicine as per outpatient pain management physician FOLLOW UP VISIT: If not already scheduled, please call the office to schedule a two week follow- up appointment. Office number Current Hospital Diet Patient's current hospital diet: Discharge Diet Recommended Diet: Regular Diet Procedures Procedures Performed: Right Inguinal Hernia Repair with Mesh Pending Studies Studies pending at discharge: no Laboratory Results Hemoglobin A1c Test 07/04/17 18:40 Range/Units Estimated Average Glucose 212 mg/dl Hemoglobin A1c 9.0 H 4.5-5.6 % Medical Emergencies . Who to Call and When: Medical Emergencies: If at any time you feel your situation is an emergency, please call 911 immediately. . Non-Emergent Contact Non-Emergency issues call your: Primary Care Provider, Surgeon Call Non-Emergent contact if: your pain is worsening, wound has increased redness, wound has increased pain . "Provider Documentation" section prepared by Buzz Ibanez. .
[2017-08-01] MEDS ORDERED: IBUPROFEN 200 MG TAB PO PRN (10:15)
--- NOTE | 2017-08-01 10:27 | OPERATIVE REPORT ---
DATE OF OPERATION: 08/01/2017 PREOPERATIVE DIAGNOSIS: Right inguinal hernia. POSTOPERATIVE DIAGNOSIS: Right indirect inguinal hernia with lipoma of the cord. PROCEDURE: Repair of right inguinal hernia. SURGEON: Dr. Ibanez. PROFESSIONAL DRIVER: Diane Frank PA-C. FINDINGS: The patient had a moderate size indirect inguinal hernia. There was a large lipoma of the cord. The cord structures were normal. TECHNIQUE: The patient was given a general anesthetic and the area was prepped and draped in usual sterile fashion. Right inguinal incision was made, carried down through the subcutaneous tissue to the external oblique fascia and the external ring was identified. A small incision was made in the external oblique and the underlying structures were off its undersurface. The fascia was then opened through the external ring. The underlying structures were away from the floor of the canal at the level of the pubic tubercle and away from the floor of the canal up to the internal ring. The cremasteric fibers were opened circumferentially on the proximal portion of the cord and the lipoma of the cord was identified. It was then away from the cord structures using blunt cautery and sharp dissection where appropriate. This dissection was carried out which then allowed me to expose the indirect hernia sac. The dissection was continued until the hernia sac, cord structures and lipoma of the cord were all individually from the other structures. The ilioinguinal nerve was then included with the cord structures. It had been previously dissected away and retracted laterally. The lipoma was sequentially clamped and divided and then ligated using 3-0 Vicryl ties. The hernia sac was placed back into its anatomic position. The transversalis was oversewn to create a new internal ring that admitted the tip of my finger. A preformed inguinal hernia mesh was then placed in the floor of the canal and sewn to the anterior surface of the internal oblique medially, tissue over the pubic bone inferiorly and to the shelving border of the inguinal ligament laterally. The legs of the mesh were approximated to each other to create a new internal ring. All of the mesh suturing was done with 0 PDS. Cord structures and ilioinguinal nerve were placed back into their anatomic position and the external oblique was closed over them using a running 2-0 Vicryl. The deep subcutaneous tissue was closed with running 2-0 Vicryl, the superficial subcutaneous tissue was closed with running 3-0 Vicryl and skin was closed with 4-0 Monocryl in running subcuticular fashion. The skin was anesthetized with 0.5% Marcaine and an ilioinguinal block was performed with that same local. The skin was then cleansed, dried, benzoin placed, Steri-Strips applied. Estimated blood loss was 5 mL. Sponge, needle and instrument counts were correct prior to closure. The patient tolerated the surgical procedure without complication, was transferred to recovery. I attest to the content of the Intraoperative Record and any orders documented therein. Any exception s are noted below.
[2017-08-01] MEDS: FENTANYL CITRATE INJ 50 MCG/1 ML 2 ML VIAL IV PRN ×7 (10:45→11:19)
[2017-08-01 11:35] VITALS: BP 155/90; PULSE 74; TEMP 36.9; O2SAT 99
[2017-08-01] MEDS ORDERED: HYDROmorphone INJ 0.5 MG/0.5 ML SYR ONE (11:57)
[2017-08-01] MEDS ORDERED: NURSING VERBAL MED ORDER ONE (12:00)
[2017-08-01 12:05] VITALS: BP_SYST 147; BP_SYST 155; BP_DIAS 90; BP_DIAS 92; PULSE 70; PULSE 74; TEMP 36.5; TEMP 36.9; O2SAT 96; O2SAT 99
--- NOTE | 2017-08-01 12:31 | Anesthesiology Progress Note ---
Anesthesia Post Op Note Date & Time Aug 01, 2017 at 12:30 Vital Signs Vital Signs Past 12 Hours Date Time Temp Pulse Resp B/P (MAP) Pulse Ox O2 Delivery O2 Flow Rate FiO2 08/01/17 11:30 36.4 67 14 152/89 95 Room Air Oxymask 08/01/17 11:20 36.4 69 14 156/95 95 Room Air Oxymask 08/01/17 11:10 61 14 164/85 100 Room Air Oxymask 08/01/17 11:00 68 14 155/96 96 Room Air Oxymask 08/01/17 10:50 61 16 156/65 98 Room Air Oxymask 08/01/17 10:40 60 13 178/98 99 Room Air Oxymask 08/01/17 10:30 60 16 141/99 100 Oxymask 10 08/01/17 10:19 36.0 58 16 151/87 100 Oxymask 10 08/01/17 08:05 37.1 64 18 124/68 (86) 95 Room Air Notes Mental Status: alert / awake / arousable, participated in evaluation Pt Amnestic to Procedure: Yes Nausea / Vomiting: adequately controlled Pain: adequately controlled Airway Patency, RR, SpO2: stable & adequate BP & HR: stable & adequate Hydration State: stable & adequate Anesthetic Complications: no major complications apparent
== END 2017-08-01 12:27 | disposition home or self-care (01) ==
LOC: C.ACU 07:13
PROVIDERS: ATTEND Surgery
DX: K40.90 Unilateral inguinal hernia, without obstruction or gangrene, not specified as recurrent (principal); F10.20 Alcohol dependence, uncomplicated; E11.9 Type 2 diabetes mellitus without complications; I10 Essential (primary) hypertension; Z89.422 Acquired absence of other left toe(s); Z79.82 Long term (current) use of aspirin; Z79.4 Long term (current) use of insulin; F17.200 Nicotine dependence, unspecified, uncomplicated; F41.9 Anxiety disorder, unspecified; K21.9 Gastro-esophageal reflux disease without esophagitis